=== PATIENT | female | born 1945 | race Caucasian/White ===

== ENCOUNTER 2020-07-24 10:17 | Outpatient (REF) | payer OTHER, SELFPAY ==
[2020-07-24 11:43] LABS: Estimated Average Glucose 140 mg/dL; Hemoglobin A1c % 6.5 %
[2020-07-24 12:10] LABS: Alanine Aminotransferase 46 U/L (0-31); Albumin Level 4.3 g/dL (3.5-5.0); Alkaline Phosphatase 93 U/L (39-117); Anion Gap 16 (12-20); Aspartate Amino Transferase 25 U/L (5-31); Bilirubin Total 0.9 mg/dL (0.0-1.0); Blood Urea Nitrogen 22 mg/dL (9-16); Calcium 9.9 mg/dL (8.4-10.2); Carbon Dioxide 28 mmol/L (22-29); Chloride 102 mmol/L (96-108); Cholesterol 162 mg/dL; Estimated Glomerular Filt Rate > 60; Glucose Fasting 100 mg/dL (60-99); HDL Cholesterol 39 mg/dL; LDL Cholesterol Calculated 81 mg/dl; Potassium 4.3 mmol/L (3.3-5.1); Sodium 142 mmol/L (135-145); Total Protein 6.8 g/dL (6.5-8.0); Triglycerides 213 mg/dL
[2020-07-24 12:21] LABS: Thyroid Stimulating Hormone 1.26 uIU/mL (0.32-4.0)
[2020-07-24 12:26] LABS: Creatinine Urine 138.84 mg/dL; Microalbum/Creatinine Ratio Ur 15.1 ug/mg cr
== END 2020-07-24 10:18 | disposition home or self-care (01) ==
LOC: HO.HMGCLDS 10:17
PROVIDERS: PCP Internal Medicine; Visit Provider Internal Medicine
DX: I10 Essential (primary) hypertension (principal); E11.9 Type 2 diabetes mellitus without complications; E78.2 Mixed hyperlipidemia
CPT/HCPCS: 36415; 80053; 80061; 82043; 83036; 84443

== ENCOUNTER 2021-04-25 10:59 | Outpatient (REF) | payer OTHER, SELFPAY ==
[2021-04-25 14:06] LABS: MANUAL DIFF FLAG NO
[2021-04-25 14:13] LABS: Basophils Percent Auto 0.5 % (0-2); Eosinophils Absolute Auto 0.1 X10*3/uL (0.0-0.4); Eosinophils Percent Auto 2.3 % (0-4); Hematocrit 39.4 % (37.0-47.0); Hemoglobin 12.8 g/dl (12.0-16.0); Imm Gran Abs Auto 0.01 X10*3/uL (0.00-0.03); Imm Gran Pct Auto 0.2 % (0.0-0.4); Lymphocytes Absolute Auto 1.5 X10*3/uL (1.2-4.9); Lymphocytes Percent Auto 25.5 % (20-40); Mean Corpuscular HGB Conc 32.5 g/dl (31.0-35.0); Mean Corpuscular Hemoglobin 29.9 pg (27.0-33.0); Mean Corpuscular Volume 92.1 fL (80.0-98.0); Mean Platelet Volume 11.7 fL (9.4-12.3); Monocytes Absolute Auto 0.3 X10*3/uL (0.1-1.2); Monocytes Percent Auto 5.7 % (2-11); Neutrophils Absolute Auto 3.9 x10*3/uL (2.0-8.3); Neutrophils Percent Auto 65.8 % (45-73); Platelet Count 209 X10*3/uL (160-400); Red Blood Count 4.28 X10*6/uL (4.20-5.50); Red Cell Distribution Width 12.7 % (11.0-16.0)
[2021-04-25 14:21] LABS: Estimated Average Glucose 123 mg/dL; Hemoglobin A1c % 5.9 %
[2021-04-25 14:40] LABS: Creatinine Urine 247.57 mg/dL; Microalbum/Creatinine Ratio Ur 5.2 ug/mg cr
[2021-04-25 14:58] LABS: Alanine Aminotransferase 30 U/L (0-31); Albumin Level 4.2 g/dL (3.5-5.0); Alkaline Phosphatase 82 U/L (39-117); Anion Gap 16 (12-20); Aspartate Amino Transferase 17 U/L (5-31); Bilirubin Total 0.6 mg/dL (0.0-1.0); Blood Urea Nitrogen 31 mg/dL (9-16); Calcium 10.3 mg/dL (8.4-10.2); Carbon Dioxide 28 mmol/L (22-29); Chloride 102 mmol/L (96-108); Cholesterol 185 mg/dL; Estimated Glomerular Filt Rate 38; Glucose Fasting 150 mg/dL (60-99); HDL Cholesterol 38 mg/dL; LDL Cholesterol Calculated 101 mg/dl; Potassium 4.5 mmol/L (3.3-5.1); Sodium 141 mmol/L (135-145); Total Protein 6.5 g/dL (6.5-8.0); Triglycerides 232 mg/dL
== END 2021-04-25 11:00 | disposition home or self-care (01) ==
LOC: HO.HMGCLDS 10:59
PROVIDERS: PCP Internal Medicine; Visit Provider Internal Medicine
DX: E11.9 Type 2 diabetes mellitus without complications (principal); E78.5 Hyperlipidemia, unspecified; I10 Essential (primary) hypertension
CPT/HCPCS: 36415; 80053; 80061; 82043; 83036; 85025

== ENCOUNTER 2021-05-25 09:38 | Outpatient (REF) | payer OTHER, SELFPAY ==
[2021-05-25 12:46] LABS: Anion Gap 15 (12-20); Blood Urea Nitrogen 22 mg/dL (9-16); Calcium 10.2 mg/dL (8.4-10.2); Carbon Dioxide 29 mmol/L (22-29); Chloride 101 mmol/L (96-108); Estimated Glomerular Filt Rate 59; Glucose Random 125 mg/dL (60-115); Potassium 4.6 mmol/L (3.3-5.1); Sodium 140 mmol/L (135-145)
== END 2021-05-25 09:39 | disposition home or self-care (01) ==
LOC: HO.HMGCLDS 09:38
PROVIDERS: PCP Internal Medicine; Visit Provider Internal Medicine
DX: I10 Essential (primary) hypertension (principal); E11.9 Type 2 diabetes mellitus without complications; E78.5 Hyperlipidemia, unspecified
CPT/HCPCS: 36415; 80048

== ENCOUNTER 2021-11-23 10:40 | Outpatient (REF) | payer OTHER, SELFPAY ==
[2021-11-23 14:08] LABS: Estimated Average Glucose 128 mg/dL; Hemoglobin A1c % 6.1 %
[2021-11-23 14:11] LABS: Alanine Aminotransferase 20 U/L (0-31); Albumin Level 4.2 g/dL (3.5-5.0); Alkaline Phosphatase 92 U/L (39-117); Anion Gap 13 (12-20); Aspartate Amino Transferase 14 U/L (5-31); Bilirubin Total 0.7 mg/dL (0.0-1.0); Blood Urea Nitrogen 20 mg/dL (9-16); Calcium 9.6 mg/dL (8.4-10.2); Carbon Dioxide 28 mmol/L (22-29); Chloride 103 mmol/L (96-108); Cholesterol 178 mg/dL; Estimated Glomerular Filt Rate 58; Glucose Fasting 127 mg/dL (60-99); HDL Cholesterol 43 mg/dL; LDL Cholesterol Calculated 96 mg/dl; Potassium 4.3 mmol/L (3.3-5.1); Sodium 140 mmol/L (135-145); Total Protein 6.7 g/dL (6.5-8.0); Triglycerides 198 mg/dL
== END 2021-11-23 10:41 | disposition home or self-care (01) ==
LOC: HO.HMGCLDS 10:40
PROVIDERS: Visit Provider Internal Medicine
DX: E11.9 Type 2 diabetes mellitus without complications (principal); E78.5 Hyperlipidemia, unspecified; I10 Essential (primary) hypertension
CPT/HCPCS: 36415; 80053; 80061; 82043; 83036

== ENCOUNTER 2022-06-24 11:21 | Outpatient (REF) | payer OTHER, SELFPAY ==
[2022-06-24 14:46] LABS: Alanine Aminotransferase 32 U/L (0-31); Albumin Level 4.2 g/dL (3.5-5.0); Alkaline Phosphatase 84 U/L (39-117); Anion Gap 16 (12-20); Aspartate Amino Transferase 24 U/L (5-31); Bilirubin Total 0.5 mg/dL (0.0-1.0); Blood Urea Nitrogen 17 mg/dL (9-16); Calcium 10.2 mg/dL (8.4-10.2); Carbon Dioxide 28 mmol/L (22-29); Chloride 101 mmol/L (96-108); Cholesterol 203 mg/dL; Estimated Average Glucose 143 mg/dL; Estimated Glomerular Filt Rate 57; Glucose Fasting 132 mg/dL (60-99); HDL Cholesterol 43 mg/dL; Hemoglobin A1c % 6.6 %; LDL Cholesterol Calculated 96 mg/dl; Potassium 4.7 mmol/L (3.3-5.1); Sodium 140 mmol/L (135-145); Total Protein 6.5 g/dL (6.5-8.0); Triglycerides 323 mg/dL
[2022-06-24 14:52] LABS: TSH reflex Free T4 1.09 uIU/mL (0.32-4.0)
[2022-06-24 15:04] LABS: Creatinine Urine 50.14 mg/dL; Microalbum/Creatinine Ratio Ur 15.9 ug/mg cr
== END 2022-06-24 11:22 | disposition home or self-care (01) ==
LOC: HO.HMGCLDS 11:21
PROVIDERS: Visit Provider Internal Medicine
DX: E11.9 Type 2 diabetes mellitus without complications (principal); E78.5 Hyperlipidemia, unspecified; I10 Essential (primary) hypertension
CPT/HCPCS: 36415; 80053; 80061; 82043; 83036; 84443

== ENCOUNTER 2023-02-18 09:02 | Outpatient (REF) | payer OTHER, SELFPAY ==
[2023-02-18 11:31] LABS: MANUAL DIFF FLAG NO
[2023-02-18 11:39] LABS: Basophils Percent Auto 0.5 % (0-2); Eosinophils Absolute Auto 0.1 X10*3/uL (0.0-0.4); Eosinophils Percent Auto 1.5 % (0-4); Hematocrit 37.8 % (37.0-47.0); Hemoglobin 12.4 g/dl (12.0-16.0); Imm Gran Abs Auto 0.03 X10*3/uL (0.00-0.03); Imm Gran Pct Auto 0.5 % (0.0-0.4); Lymphocytes Absolute Auto 1.5 X10*3/uL (1.2-4.9); Lymphocytes Percent Auto 25.5 % (20-40); Mean Corpuscular HGB Conc 32.8 g/dl (31.0-35.0); Mean Corpuscular Hemoglobin 30.5 pg (27.0-33.0); Mean Corpuscular Volume 92.9 fL (80.0-98.0); Mean Platelet Volume 10.4 fL (9.4-12.3); Monocytes Absolute Auto 0.3 X10*3/uL (0.1-1.2); Monocytes Percent Auto 5.6 % (2-11); Neutrophils Percent Auto 66.4 % (45-73); Platelet Count 243 X10*3/uL (160-400); Red Blood Count 4.07 X10*6/uL (4.20-5.50); Red Cell Distribution Width 13.5 % (11.0-16.0)
[2023-02-18 12:03] LABS: Estimated Average Glucose 134 mg/dL; Hemoglobin A1c % 6.3 % (<6.0)
[2023-02-18 13:08] LABS: Alanine Aminotransferase 28 U/L (0-31); Albumin Level 4.1 g/dL (3.5-5.0); Alkaline Phosphatase 82 U/L (39-117); Anion Gap 17 (12-20); Aspartate Amino Transferase 21 U/L (5-31); Bilirubin Total 0.5 mg/dL (0.0-1.0); Blood Urea Nitrogen 15 mg/dL (9-16); Calcium 10.4 mg/dL (8.4-10.2); Carbon Dioxide 24 mmol/L (22-29); Chloride 103 mmol/L (96-108); Cholesterol 180 mg/dL (<200); Estimated Glomerular Filt Rate > 60; Glucose Fasting 124 mg/dL (60-99); HDL Cholesterol 46 mg/dL (>40); Iron 53 mcg/dL (30-160); LDL Cholesterol Calculated 87 mg/dL (<100); Percent Iron Saturation 18 % (15-50); Potassium 4.1 mmol/L (3.3-5.1); Sodium 140 mmol/L (135-145); Total Iron Binding Capacity 302 mcg/dL (228-428); Total Protein 6.8 g/dL (6.5-8.0); Triglycerides 235 mg/dL (<150); Unsaturated Iron Binding 249 ug/dL
[2023-02-18 13:09] LABS: Creatinine Urine 349.19 mg/dL; Microalbum/Creatinine Ratio Ur 15.4 ug/mg cr (<30)
== END 2023-02-18 09:03 | disposition home or self-care (01) ==
LOC: HO.HMGCLDS 09:02
PROVIDERS: PCP Internal Medicine; Visit Provider Internal Medicine
DX: I10 Essential (primary) hypertension (principal); E11.9 Type 2 diabetes mellitus without complications; E78.5 Hyperlipidemia, unspecified
CPT/HCPCS: 36415; 80053; 80061; 82043; 82570; 83036; 83540; 85025

== ENCOUNTER 2023-02-25 10:50 | Outpatient (AMB) | payer OTHER, SELFPAY ==
[2023-02-25 10:53] VITALS: BP 120/66; PULSE 79; O2SAT 97; BMI 42.4
--- NOTE | 2023-02-25 10:53 | MHC.PC.OV ---
Vital Signs 02/25/23 10:53 Height 5 ft 2 in Weight 232 lb BMI 42.4 BP 120/66 Blood Pressure Location Lt brachial Position Sitting Pulse 79 Pulse Source Pulse Oximeter Pulse Oximetry (%) 97 Oxygen Delivery Method Room Air Intake Visit Reasons: 6m follow up rebooked from 12/25 Intake Note: Pt is here today for 6 months follow up visit. Allergies linagliptin [Tradjenta] Adverse Reaction (Unknown, Verified 02/25/23 10:54) yeast infection metformin Adverse Reaction (Unknown, Verified 02/25/23 10:54) diarrhea Medication List - Last Reconciled 02/25/23 by Mary Anne Bundy MD atorvastatin 20 mg PO DAILY citalopram 20 mg PO DAILY dulaglutide 1.5 mg (0.5 mL) subcut QWEEK gabapentin 300 mg PO BID glipizide 15 mg (1.5 x 10 mg) PO DAILY hydrochlorothiazide 25 mg PO DAILY hyoscyamine sulfate ER 0.375 mg PO BID ketoconazole 2% 1 appl topical BID olmesartan 20 mg PO DAILY omeprazole 20 mg PO QAM triamcinolone acetonide 0.1% 1 appl topical BID Tobacco use date assessed: 02/25/23 Fall risk assessment: No Falls in past year Last assessed Fall Risk: 02/25/23 Dental Screening Dental Screen Date: 02/25/23 Did you have a dental visit in the last 12 months?: Yes Did you have a dental problem in the last 6 months where you did not have access to dental care?: No Was dental information given to patient?: Patient has dentist HPI 6m follow up rebooked from 12/25 HPI Details PATIENT PRESENTS FOR THE FOLLOW-UP OF TYPE 2 DIABETES HYPERTENSION HYPERLIPIDEMIA STABLE ON MEDS. [facility] Medical History Macular hole of right eye IBS (irritable bowel syndrome) COPD (chronic obstructive pulmonary disease) Spinal stenosis Degenerative joint disease (DJD) of lumbar spine Overweight Type 2 diabetes mellitus Hyperlipidemia HTN (hypertension) Surgical History H/O colonoscopy Hx of cholecystectomy Family History Mother No problems noted. Father Diabetes Heart problem Substance use disorder Sister No problems noted. Social History Housing: House Alcohol intake: never Patient Tobacco Use Status: Former Tobacco user (5years ago) e-Cigarette/Vaping Use: Never Used Current occupational status: retired Cognitive needs: No Hearing needs: No Vision needs: No Questionnaire PHQ-9 Over the last 2 weeks, how often have you been bothered by any of the following problems? 1. Little interest or pleasure in doing things: not at all 2. Feeling down, depressed, or hopeless: not at all 3. Trouble falling or staying asleep, or sleeping too much: several days 4. Feeling tired or having little energy: not at all 5. Poor appetite or overeating: not at all 6. Feeling bad about yourself - or that you are a failure or have let yourself or your family down: not at all 7. Trouble concentrating on things, such as reading the newspaper or watching television: not at all 8. Moving or speaking so slowly that other people could have noticed. Or the opposite - being so fidgety or restless that you have been moving around a lot more than usual: not at all 9. Thoughts that you would be better off or of hurting yourself in some way: not at all Total score: 1 Depression Screening Interpretation: Negative Depression Screening Done: Yes Source: Developed by Drs. Jean Delaney, Ammy Yoo, Michael Faustin and colleagues, with an educational xochilt from [employer]. Thrive Questionnaire Date Thrive assessed: 02/25/23 I am a: Patient What is your living situation today?: I have a steady place to live Within the past 12 months, did the food you bought not last and you didn't have the money to get more?: Never true Within the past 12 months, did you worry whether your food would run out before you got money to buy more?: Never true Do you have trouble paying for medicines?: No Do you have trouble getting transportation to medical appointments?: No Do you have trouble paying your heating and electricity bill?: No Do you have trouble taking care of your child, family member or friend?: No Do you have trouble with day-to-day activities such as bathing, preparing meals, shopping, managing finances, etc.?: No Are you currently unemployed and looking for a job?: No Are you interested in more education?: No AUDIT C Alcohol Use Questionnaire (AUDIT-C) 1. How often do you have a drink containing alcohol?: Never 3. How often do you have six or more drinks on one occasion?: Never Total Score: 0 LISS-7 AMB Questionnaire LISS-7 Date LISS - 7 assessed: 06/27/22 Source: Developed by Drs. Jean Delaney, Ammy Yoo, Michael Faustin and colleagues, with an educational xochilt from [employer]. Review of Systems Const All systems reviewed & are unremarkable except as noted in HPI and below Reports no additional complaints Eyes Reports no additional complaints ENT Reports no additional complaints Card Reports no additional complaints Resp Reports no additional complaints GI Reports no additional complaints Reports no additional complaints Physical exam (Primary Care) Vital Signs: Last Vital Signs Pulse 79 02/25/23 10:53 BP 120/66 02/25/23 10:53 Pulse Ox 97 02/25/23 10:53 Oxygen Delivery Method Room Air 02/25/23 10:53 BMI result Body Mass Index 42.4 Tobacco/Smoking Status: Tobacco use Status Tobacco use date assessed 02/25/23 02/25/23 11:03 Patient Tobacco Use Status Former Tobacco user (5years 02/25/23 11:03 ago) e-Cigarette/Vaping Use Never Used 02/25/23 11:03 PHQ-9: PHQ-9 Score PHQ-9: Total score 1 02/25/23 11:03 Depression Screening Interpretation: Negative Thrive Assessment: Date of Thrive Assessment Date Thrive assessed 02/25/23 02/25/23 11:03 Const General: no acute distress HENMT Face and sinus: Yes normal facial exam Mouth: Normal oral and palatal mucosa present Throat: Yes posterior oropharynx normal Eyes General: appearance normal, both eyes and all related structures Neck Neck: Yes no lymphadenopathy and Yes supple Resp Effort & Inspection: normal respiratory effort Auscultation: clear to auscultation bilaterally Cardio Rhythm: regular rhythm Heart sounds: S1 normal heart sound present and S2 normal heart sound present GI Inspection: Yes normal to inspection Palpation (GI): Soft to palpation Percussion: Yes normal to percussion Auscultation: normal bowel sounds Assessment and Plan Assessment & Plan (1) Type 2 diabetes mellitus: Code(s): E11.9 - Type 2 diabetes mellitus without complications Plan: A1C is 6.3, cont ADA diet, exercise, weight loss, f/u for PE IN 6 MONTHS (2) HTN (hypertension): Code(s): I10 - Essential (primary) hypertension Plan: cont meds (3) Hyperlipidemia: Code(s): E78.5 - Hyperlipidemia, unspecified Plan: cont statin Orders: Orders Complete Blood Count Auto Diff 6 Months E11.9 - Type 2 diabetes mellitus without complications, E78.5 - Hyperlipidemia, unspecified, I10 - Essential (primary) hypertension Hemoglobin A1c 6 Months E11.9 - Type 2 diabetes mellitus without complications, E78.5 - Hyperlipidemia, unspecified, I10 - Essential (primary) hypertension Lipid Panel 6 Months E11.9 - Type 2 diabetes mellitus without complications, E78.5 - Hyperlipidemia, unspecified, I10 - Essential (primary) hypertension Microalbumin, Random (w Creat) 6 Months E11.9 - Type 2 diabetes mellitus without complications, E78.5 - Hyperlipidemia, unspecified, I10 - Essential (primary) hypertension Comprehensive [place]. Panel Fast 6 Months E11.9 - Type 2 diabetes mellitus without complications, E78.5 - Hyperlipidemia, unspecified, I10 - Essential (primary) hypertension Coding Level of Care Code Est Pt Level 4 (80379) Diagnoses Type 2 diabetes mellitus E11.9 HTN (hypertension) I10 Hyperlipidemia E78.5
== END 2023-02-25 11:31 | disposition home or self-care (01) ==
PROVIDERS: PCP Internal Medicine; Visit Provider Internal Medicine
DX: E11.9 Type 2 diabetes mellitus without complications (principal); I10 Essential (primary) hypertension; E78.5 Hyperlipidemia, unspecified
CPT/HCPCS: 99214

== ENCOUNTER 2023-10-28 10:23 | Outpatient (REF) | payer OTHER, SELFPAY ==
[2023-10-28 13:17] LABS: MANUAL DIFF FLAG NO
[2023-10-28 13:39] LABS: Basophils Percent Auto 0.5 % (0-2); Eosinophils Absolute Auto 0.2 X10*3/uL (0.0-0.4); Eosinophils Percent Auto 2.7 % (0-4); Hematocrit 38.1 % (37.0-47.0); Hemoglobin 12.5 g/dl (12.0-16.0); Imm Gran Abs Auto 0.02 X10*3/uL (0.00-0.03); Imm Gran Pct Auto 0.3 % (0.0-0.4); Lymphocytes Absolute Auto 1.4 X10*3/uL (1.2-4.9); Lymphocytes Percent Auto 24.7 % (20-40); Mean Corpuscular HGB Conc 32.8 g/dl (31.0-35.0); Mean Corpuscular Volume 91.4 fL (80.0-98.0); Mean Platelet Volume 11.2 fL (9.4-12.3); Monocytes Absolute Auto 0.4 X10*3/uL (0.1-1.2); Monocytes Percent Auto 6.7 % (2-11); Neutrophils Absolute Auto 3.8 x10*3/uL (2.0-8.3); Neutrophils Percent Auto 65.1 % (45-73); Platelet Count 200 X10*3/uL (160-400); Red Blood Count 4.17 X10*6/uL (4.20-5.50); Red Cell Distribution Width 13.7 % (11.0-16.0); White Blood Count 5.8 X10*3/uL (4.8-10.8)
[2023-10-28 14:00] LABS: Alanine Aminotransferase 37 U/L (0-31); Alkaline Phosphatase 81 U/L (39-117); Anion Gap 16 (12-20); Aspartate Amino Transferase 28 U/L (5-31); Bilirubin Total 0.6 mg/dL (0.0-1.0); Blood Urea Nitrogen 20 mg/dL (9-16); Calcium 10.1 mg/dL (8.4-10.2); Carbon Dioxide 25 mmol/L (22-29); Chloride 102 mmol/L (96-108); Cholesterol 160 mg/dL (<200); Estimated Glomerular Filt Rate > 60; Glucose Fasting 132 mg/dL (60-99); HDL Cholesterol 37 mg/dL (>40); LDL Cholesterol Calculated 75 mg/dL (<100); Potassium 4.4 mmol/L (3.3-5.1); Sodium 139 mmol/L (135-145); Total Protein 6.7 g/dL (6.5-8.0); Triglycerides 242 mg/dL (<150)
[2023-10-28 14:03] LABS: Estimated Average Glucose 148 mg/dL; Hemoglobin A1c % 6.8 % (<6.0)
[2023-10-28 14:07] LABS: Creatinine Urine 102.34 mg/dL; Microalbum/Creatinine Ratio Ur 9.7 ug/mg cr (<30)
== END 2023-10-28 10:24 | disposition home or self-care (01) ==
LOC: HO.HMGCLDS 10:23
PROVIDERS: PCP Internal Medicine; Visit Provider Internal Medicine
DX: E11.9 Type 2 diabetes mellitus without complications (principal); E78.5 Hyperlipidemia, unspecified; I10 Essential (primary) hypertension
CPT/HCPCS: 36415; 80053; 80061; 82043; 82570; 83036; 85025

== ENCOUNTER 2023-10-30 10:20 | Outpatient (AMB) | payer OTHER, SELFPAY ==
[2023-10-30 10:34] VITALS: BP 108/64; PULSE 72; O2SAT 96; BMI 41.1
--- NOTE | 2023-10-30 10:34 | A.OFFPC_ITS ---
Vital Signs 10/30/23 10:34 Height 5 ft 2 in Weight 225 lb BMI 41.1 BP 108/64 Blood Pressure Location Rt brachial Position Sitting Pulse 72 Pulse Source Pulse Oximeter Pulse Oximetry (%) 96 Oxygen Delivery Method Room Air Intake Visit Reasons: Annual PE Intake Note: Pt is here today for PE. Allergies linagliptin [Tradjenta] Adverse Reaction (Unknown, Verified 10/30/23 10:37) yeast infection metformin Adverse Reaction (Unknown, Verified 10/30/23 10:37) diarrhea Medication List - Last Reconciled 10/30/23 by Mary Anne Bundy MD atorvastatin 20 mg PO DAILY citalopram 10 mg PO DAILY dulaglutide 1.5 mg (0.5 mL) subcut QWEEK gabapentin 300 mg PO BID glipizide 15 mg (1.5 x 10 mg) PO DAILY hydrochlorothiazide 25 mg PO DAILY hyoscyamine sulfate ER 0.375 mg PO BID ketoconazole 2% 1 appl topical BID PRN multivitamin 1 tab PO DAILY [nutrafol 1 cap 5 times a day for hair ] olmesartan 20 mg PO DAILY omeprazole 20 mg PO QAM triamcinolone acetonide 0.1% 1 appl topical BID PRN Tobacco use date assessed: 10/30/23 Last assessed Fall Risk: 10/30/23 Dental Screening Dental Screen Date: 10/30/23 Did you have a dental visit in the last 12 months?: Yes Did you have a dental problem in the last 6 months where you did not have access to dental care?: No Was dental information given to patient?: Patient has dentist HPI Annual PE HPI Details Pt presents for PE. Patient would like to taper off citalopram. She has been feeling well overall and lost 7 lb since last visit on 1.5 mg of Trulicity [facility] Medical History Macular hole of right eye IBS (irritable bowel syndrome) COPD (chronic obstructive pulmonary disease) Spinal stenosis Degenerative joint disease (DJD) of lumbar spine Overweight Type 2 diabetes mellitus Hyperlipidemia HTN (hypertension) Surgical History H/O colonoscopy Hx of cholecystectomy Family History Mother No problems noted. Father Diabetes Heart problem Substance use disorder Sister No problems noted. Social History Housing: House Alcohol intake: never Patient Tobacco Use Status: Former Tobacco user (5years ago) e-Cigarette/Vaping Use: Never Used Current occupational status: retired Cognitive needs: No Hearing needs: No Vision needs: No Questionnaire PHQ-9 Over the last 2 weeks, how often have you been bothered by any of the following problems? 1. Little interest or pleasure in doing things: not at all 2. Feeling down, depressed, or hopeless: not at all 3. Trouble falling or staying asleep, or sleeping too much: several days 4. Feeling tired or having little energy: not at all 5. Poor appetite or overeating: several days 6. Feeling bad about yourself - or that you are a failure or have let yourself or your family down: not at all 7. Trouble concentrating on things, such as reading the newspaper or watching television: not at all 8. Moving or speaking so slowly that other people could have noticed. Or the opposite - being so fidgety or restless that you have been moving around a lot more than usual: not at all 9. Thoughts that you would be better off or of hurting yourself in some way: not at all Total score: 2 Depression Screening Interpretation: Negative Depression Screening Done: Yes Source: Developed by Drs. Jean Delaney, Ammy Yoo, Michael Faustin and colleagues, with an educational xochilt from [email or web address]. Thrive Questionnaire Date Thrive assessed: 10/30/23 I am a: Patient What is your living situation today?: I have a steady place to live Within the past 12 months, did the food you bought not last and you didn't have the money to get more?: Never true Within the past 12 months, did you worry whether your food would run out before you got money to buy more?: Never true Do you have trouble paying for medicines?: No Do you have trouble getting transportation to medical appointments?: No Do you have trouble paying your heating and electricity bill?: No Do you have trouble taking care of your child, family member or friend?: No Do you have trouble with day-to-day activities such as bathing, preparing meals, shopping, managing finances, etc.?: No Are you currently unemployed and looking for a job?: No Are you interested in more education?: No Please select the resources that you would like help with: None THRIVE Score: 0 AUDIT C Alcohol Use Questionnaire (AUDIT-C) 1. How often do you have a drink containing alcohol?: Never 3. How often do you have six or more drinks on one occasion?: Never Total Score: 0 LISS-7 AMB Questionnaire LISS-7 Date LISS - 7 assessed: 10/30/23 Feeling nervous, anxious, or on edge: 0 = Not at all Not being able to stop or control worryin = Not at all Worrying too much about different things: 0 = Not at all Trouble relaxin = Not at all Being so restless that it is hard to sit still: 0 = Not at all Becoming easily annoyed or irritable: 0 = Not at all Feeling afraid as if something awful might happen: 0 = Not at all Total LISS-7 score (0-4 normal; 5-9 mild; 10-14 moderate; 15-21 severe): 0 Source: Developed by Drs. Jean Delaney, Ammy Yoo, Michael Faustin and colleagues, with an educational xochilt from [email or web address]. Review of Systems Const All systems reviewed & are unremarkable except as noted in HPI and below Reports no additional complaints Eyes Reports no additional complaints ENT Reports no additional complaints Card Reports no additional complaints Resp Reports no additional complaints GI Reports no additional complaints Reports no additional complaints Physical exam (Primary Care) Vital Signs: Last Vital Signs Pulse 72 10/30/23 10:34 BP 108/64 10/30/23 10:34 Pulse Ox 96 10/30/23 10:34 Oxygen Delivery Method Room Air 10/30/23 10:34 BMI result Body Mass Index 41.1 Tobacco/Smoking Status: Tobacco use Status Tobacco use date assessed 10/30/23 10/30/23 10:46 Patient Tobacco Use Status Former Tobacco user (5years 10/30/23 10:46 ago) e-Cigarette/Vaping Use Never Used 10/30/23 10:46 PHQ-9: PHQ-9 Score PHQ-9: Total score 2 10/30/23 10:46 Depression Screening Interpretation: Negative Thrive Assessment: Date of Thrive Assessment Date Thrive assessed 10/30/23 10/30/23 10:46 Const General: no acute distress HENMT Head: Yes normal to inspection General nose exam: Normal external nose present Face and sinus: Yes normal facial exam Mouth: Normal oral and palatal mucosa present Throat: Yes posterior oropharynx normal Eyes General: appearance normal, both eyes and all related structures Neck Neck: Yes supple Resp Effort & Inspection: normal respiratory effort Auscultation: clear to auscultation bilaterally Cardio Rhythm: regular rhythm Heart sounds: S1 normal heart sound present and S2 normal heart sound present GI Inspection: Yes normal to inspection Palpation (GI): Soft to palpation Percussion: Yes normal to percussion Auscultation: normal bowel sounds Assessment and Plan Assessment & Plan (1) HTN (hypertension): Code(s): I10 - Essential (primary) hypertension Plan: Continue olmesartan (2) Hyperlipidemia: Code(s): E78.5 - Hyperlipidemia, unspecified Plan: Continue statin (3) Type 2 diabetes mellitus: Code(s): E11.9 - Type 2 diabetes mellitus without complications Plan: A1c is 6.8, ADA diet increase exercise weight loss discussed with the patient. Increase Trulicity to 3 mg weekly and decrease glipizide to 5 mg from 10 mg. Follow-up in 3 months with a fasting labs before (4) Edema: Code(s): R60.9 - Edema, unspecified Plan: For worsening lower extremity edema hydrochlorothiazide will be discontinued and patient will start Lasix 20 mg daily. BMP will be checked in 3 weeks (5) Anxiety: Code(s): F41.9 - Anxiety disorder, unspecified Plan: Patient will slowly taper off citalopram (6) Annual physical exam: Code(s): Z00.00 - Encounter for general adult medical examination without abnormal findings Plan: Well-balanced diet regular exercise weight loss discussed with the patient Orders: Orders Basic Metabolic Panel 3 Weeks E11.9 - Type 2 diabetes mellitus without complications, E78.5 - Hyperlipidemia, unspecified, I10 - Essential (primary) hypertension, R60.9 - Edema, unspecified Comprehensive [place]. Panel Fast 3 Months E11.9 - Type 2 diabetes mellitus without complications, E78.5 - Hyperlipidemia, unspecified, I10 - Essential (primary) hypertension Complete Blood Count Auto Diff 3 Months E11.9 - Type 2 diabetes mellitus without complications, E78.5 - Hyperlipidemia, unspecified, I10 - Essential (primary) hypertension Lipid Panel 3 Months E11.9 - Type 2 diabetes mellitus without complications, E78.5 - Hyperlipidemia, unspecified, I10 - Essential (primary) hypertension Hemoglobin A1c 3 Months E11.9 - Type 2 diabetes mellitus without complications, E78.5 - Hyperlipidemia, unspecified, I10 - Essential (primary) hypertension Microalbumin, Random (w Creat) 3 Months E11.9 - Type 2 diabetes mellitus without complications, E78.5 - Hyperlipidemia, unspecified, I10 - Essential (primary) hypertension Medications: New Trulicity (dulaglutide) 3 mg (0.5 mL) subcut QWEEK 6 mL 1RF NS citalopram 1 tabl qd for 2 weeks, then 1/2 tabl qd fo 2weeks, then 1/2 tabl qod for 2 weeks, then 1/2 tabl q 2 days for 2 weeks 10 mg PO DAILY 90 tabs 0RF glipizide ER 5 mg PO DAILY 90 tabs 0RF furosemide (Lasix) 20 mg PO DAILY 90 tabs 0RF Changed From triamcinolone acetonide 0.1% 1 appl topical BID 80 grams 3RF To triamcinolone acetonide 0.1% 1 appl topical BID PRN Discontinued citalopram Discontinued Reason: Doctor's Order 20 mg PO DAILY 90 tabs 2RF glipizide Discontinued Reason: Doctor's Order 15 mg (1.5 x 10 mg) PO DAILY 135 tabs 3RF hydrochlorothiazide Discontinued Reason: Doctor's Order 25 mg PO DAILY 90 tabs 3RF dulaglutide Discontinued Reason: Doctor's Order 1.5 mg (0.5 mL) subcut QWEEK 6 mL 3RF Coding Level of Care Code Est Pt Prev Care >65y(82633) Diagnoses HTN (hypertension) I10 Hyperlipidemia E78.5 Type 2 diabetes mellitus E11.9 Edema R60.9 Anxiety F41.9 Annual physical exam Z00.00
== END 2023-10-30 11:28 | disposition home or self-care (01) ==
PROVIDERS: PCP Internal Medicine; Visit Provider Internal Medicine
DX: I10 Essential (primary) hypertension (principal); E78.5 Hyperlipidemia, unspecified; E11.9 Type 2 diabetes mellitus without complications; R60.9 Edema, unspecified; F41.9 Anxiety disorder, unspecified; Z00.00 Encounter for general adult medical examination without abnormal findings
CPT/HCPCS: 99397

== ENCOUNTER 2023-11-20 08:30 | Outpatient (REF) | payer OTHER, SELFPAY ==
[2023-11-20 12:11] LABS: Anion Gap 15 (12-20); Blood Urea Nitrogen 27 mg/dL (9-16); Calcium 10.5 mg/dL (8.4-10.2); Carbon Dioxide 27 mmol/L (22-29); Chloride 103 mmol/L (96-108); Estimated Glomerular Filt Rate 43; Glucose Random 168 mg/dL (60-115); Potassium 4.6 mmol/L (3.3-5.1); Sodium 140 mmol/L (135-145)
== END 2023-11-20 08:31 | disposition home or self-care (01) ==
LOC: HO.HMGCLDS 08:30
PROVIDERS: PCP Internal Medicine; Visit Provider Internal Medicine
DX: R60.9 Edema, unspecified (principal); E11.9 Type 2 diabetes mellitus without complications; I10 Essential (primary) hypertension; E78.5 Hyperlipidemia, unspecified
CPT/HCPCS: 36415; 80048

== ENCOUNTER 2024-02-02 11:06 | Outpatient (REF) | payer OTHER, SELFPAY ==
[2024-02-02 13:19] LABS: MANUAL DIFF FLAG NO
[2024-02-02 13:28] LABS: Basophils Percent Auto 0.9 % (0-2); Eosinophils Absolute Auto 0.1 X10*3/uL (0.0-0.4); Eosinophils Percent Auto 3.1 % (0-4); Hematocrit 38.2 % (37.0-47.0); Hemoglobin 12.7 g/dl (12.0-16.0); Imm Gran Abs Auto 0.01 X10*3/uL (0.00-0.03); Imm Gran Pct Auto 0.2 % (0.0-0.4); Lymphocytes Absolute Auto 1.6 X10*3/uL (1.2-4.9); Lymphocytes Percent Auto 35.5 % (20-40); Mean Corpuscular HGB Conc 33.2 g/dl (31.0-35.0); Mean Corpuscular Hemoglobin 30.5 pg (27.0-33.0); Mean Corpuscular Volume 91.6 fL (80.0-98.0); Mean Platelet Volume 10.9 fL (9.4-12.3); Monocytes Absolute Auto 0.3 X10*3/uL (0.1-1.2); Monocytes Percent Auto 7.4 % (2-11); Neutrophils Absolute Auto 2.4 x10*3/uL (2.0-8.3); Neutrophils Percent Auto 52.9 % (45-73); Platelet Count 195 X10*3/uL (160-400); Red Blood Count 4.17 X10*6/uL (4.20-5.50); White Blood Count 4.6 X10*3/uL (4.8-10.8)
[2024-02-02 13:48] LABS: Alanine Aminotransferase 31 U/L (0-31); Alkaline Phosphatase 79 U/L (39-117); Anion Gap 15 (12-20); Aspartate Amino Transferase 21 U/L (5-31); Bilirubin Total 0.4 mg/dL (0.0-1.0); Blood Urea Nitrogen 22 mg/dL (9-16); Calcium 10.3 mg/dL (8.4-10.2); Carbon Dioxide 26 mmol/L (22-29); Chloride 106 mmol/L (96-108); Cholesterol 179 mg/dL (<200); Estimated Glomerular Filt Rate > 60; Glucose Fasting 125 mg/dL (60-99); HDL Cholesterol 40 mg/dL (>40); LDL Cholesterol Calculated 90 mg/dL (<100); Potassium 4.8 mmol/L (3.3-5.1); Sodium 142 mmol/L (135-145); Total Protein 6.7 g/dL (6.5-8.0); Triglycerides 246 mg/dL (<150)
[2024-02-02 14:14] LABS: Creatinine Urine 39.61 mg/dL; Microalbumin Urine < 5.0 mg/L
[2024-02-02 14:33] LABS: Estimated Average Glucose 134 mg/dL; Hemoglobin A1c % 6.3 % (<6.0)
== END 2024-02-02 11:07 | disposition home or self-care (01) ==
LOC: HO.HMGCLDS 11:06
PROVIDERS: PCP Internal Medicine; Visit Provider Internal Medicine
DX: I10 Essential (primary) hypertension (principal); E11.9 Type 2 diabetes mellitus without complications; E78.5 Hyperlipidemia, unspecified
CPT/HCPCS: 36415; 80053; 80061; 82043; 82570; 83036; 85025

== ENCOUNTER 2024-02-05 10:54 | Outpatient (AMB) | payer OTHER, SELFPAY ==
[2024-02-05 10:55] VITALS: BP 116/64; PULSE 74; O2SAT 97; BMI 40.4
--- NOTE | 2024-02-05 10:55 | A.OFFPC_ITS ---
Vital Signs 02/05/24 10:55 Height 5 ft 2 in Weight 221 lb BMI 40.4 BP 116/64 Blood Pressure Location Lt brachial Position Sitting Pulse 74 Pulse Source Pulse Oximeter Pulse Oximetry (%) 97 Oxygen Delivery Method Room Air Intake Visit Reasons: follow up on medications Intake Note: Pt is here today for a follow up visit on weight medication. Allergies linagliptin [Tradjenta] Adverse Reaction (Unknown, Verified 02/05/24 10:56) yeast infection metformin Adverse Reaction (Unknown, Verified 02/05/24 10:56) diarrhea Medication List - Last Reconciled 02/05/24 by Mary Anne Bundy MD atorvastatin 20 mg PO DAILY citalopram 10 mg PO DAILY furosemide (Lasix) 20 mg PO DAILY gabapentin 300 mg PO BID glipizide ER 5 mg PO DAILY hyoscyamine sulfate ER 0.375 mg PO BID ketoconazole 2% 1 appl topical BID PRN multivitamin 1 tab PO DAILY [nutrafol 1 cap 5 times a day for hair ] olmesartan 20 mg PO DAILY omeprazole 20 mg PO QAM Ozempic (semaglutide) 2 mg (0.75 mL) subcut QWEEK NS triamcinolone acetonide 0.1% 1 appl topical BID PRN Tobacco use date assessed: 02/05/24 Dental Screening Dental Screen Date: 10/30/23 HPI follow up on medications HPI Details Pt presents for f/u DM 2, HTN, hyperlipid, stable on meds. Patient has been using Trulicity but needs to switch to Ozempic because of the shortage at its concerned about side effects. [facility] Medical History Macular hole of right eye IBS (irritable bowel syndrome) COPD (chronic obstructive pulmonary disease) Spinal stenosis Degenerative joint disease (DJD) of lumbar spine Overweight Type 2 diabetes mellitus Hyperlipidemia HTN (hypertension) Surgical History H/O colonoscopy Hx of cholecystectomy Family History Mother No problems noted. Father Diabetes Heart problem Substance use disorder Sister No problems noted. Social History Housing: House Alcohol intake: never Patient Tobacco Use Status: Former Tobacco user (5years ago) e-Cigarette/Vaping Use: Never Used service: No Current occupational status: retired Cognitive needs: No Hearing needs: No Vision needs: No Questionnaire Thrive Questionnaire Date Thrive assessed: 10/30/23 I am a: Patient What is your living situation today?: I have a steady place to live Within the past 12 months, did the food you bought not last and you didn't have the money to get more?: Never true Within the past 12 months, did you worry whether your food would run out before you got money to buy more?: Never true Do you have trouble paying for medicines?: No Do you have trouble getting transportation to medical appointments?: No Do you have trouble paying your heating and electricity bill?: No Do you have trouble taking care of your child, family member or friend?: No Do you have trouble with day-to-day activities such as bathing, preparing meals, shopping, managing finances, etc.?: No Are you currently unemployed and looking for a job?: No Are you interested in more education?: No THRIVE Score: 0 AUDIT C Alcohol Use Questionnaire (AUDIT-C) 1. How often do you have a drink containing alcohol?: Monthly or less 2. How many drinks containing alcohol do you have on a typical day when you are drinking?: 1 or 2 3. How often do you have six or more drinks on one occasion?: Never Total Score: 1 LISS-7 AMB Questionnaire LISS-7 Date LISS - 7 assessed: 10/30/23 Feeling nervous, anxious, or on edge: 0 = Not at all Not being able to stop or control worryin = Not at all Worrying too much about different things: 0 = Not at all Trouble relaxin = Not at all Being so restless that it is hard to sit still: 0 = Not at all Becoming easily annoyed or irritable: 0 = Not at all Feeling afraid as if something awful might happen: 0 = Not at all Total LISS-7 score (0-4 normal; 5-9 mild; 10-14 moderate; 15-21 severe): 0 Source: Developed by Drs. Jean Delaney, Ammy Yoo, Michael Faustin and colleagues, with an educational xochilt from [employer]. Review of Systems Const All systems reviewed & are unremarkable except as noted in HPI and below Eyes Reports no additional complaints ENT Reports no additional complaints Card Reports no additional complaints Resp Reports no additional complaints GI Reports no additional complaints Reports no additional complaints Musc Reports no additional complaints Physical exam (Primary Care) Vital Signs: Last Vital Signs Pulse 74 02/05/24 10:55 BP 116/64 02/05/24 10:55 Pulse Ox 97 02/05/24 10:55 Oxygen Delivery Method Room Air 02/05/24 10:55 BMI result Body Mass Index 40.4 Tobacco/Smoking Status: Tobacco use Status Tobacco use date assessed 02/05/24 02/05/24 11:03 Patient Tobacco Use Status Former Tobacco user (5years 02/05/24 11:03 ago) e-Cigarette/Vaping Use Never Used 02/05/24 11:03 Thrive Assessment: Date of Thrive Assessment Date Thrive assessed 10/30/23 02/05/24 11:03 Const General: no acute distress HENMT Head: Yes normal to inspection Ears: hearing grossly normal bilaterally Face and sinus: Yes normal facial exam Throat: Yes posterior oropharynx normal Eyes General: appearance normal, both eyes and all related structures Neck Neck: Yes no lymphadenopathy and Yes supple Resp Effort & Inspection: normal respiratory effort Auscultation: clear to auscultation bilaterally Cardio Rhythm: regular rhythm Heart sounds: S1 normal heart sound present and S2 normal heart sound present GI Inspection: Yes normal to inspection Palpation (GI): Soft to palpation Percussion: Yes normal to percussion Auscultation: normal bowel sounds Assessment and Plan Assessment & Plan (1) Type 2 diabetes mellitus: Code(s): E11.9 - Type 2 diabetes mellitus without complications Plan: A1c is down to 6.3, continue ADA diet increase physical activity weight loss discussed with the patient. She will start Ozempic instead of Trulicity. Patient will follow-up in 4 months with a fasting labs before (2) HTN (hypertension): Code(s): I10 - Essential (primary) hypertension Plan: Continue current medications (3) Hyperlipidemia: Code(s): E78.5 - Hyperlipidemia, unspecified Plan: Continue statin Orders: Orders Hemoglobin A1c 4 Months E11.9 - Type 2 diabetes mellitus without complications, E78.5 - Hyperlipidemia, unspecified, I10 - Essential (primary) hypertension Complete Blood Count Auto Diff 4 Months E11.9 - Type 2 diabetes mellitus without complications, E78.5 - Hyperlipidemia, unspecified, I10 - Essential (primary) hypertension Lipid Panel 4 Months E11.9 - Type 2 diabetes mellitus without complications, E78.5 - Hyperlipidemia, unspecified, I10 - Essential (primary) hypertension Comprehensive Commerce. Panel Fast 4 Months E11.9 - Type 2 diabetes mellitus without complications, E78.5 - Hyperlipidemia, unspecified, I10 - Essential (primary) hypertension Microalbumin, Random (w Creat) 4 Months E11.9 - Type 2 diabetes mellitus without complications, E78.5 - Hyperlipidemia, unspecified, I10 - Essential (primary) hypertension Coding Level of Care Code Est Pt Level 4 (80040) Diagnoses Type 2 diabetes mellitus E11.9 HTN (hypertension) I10 Hyperlipidemia E78.5
== END 2024-02-05 12:02 | disposition home or self-care (01) ==
PROVIDERS: PCP Internal Medicine; Visit Provider Internal Medicine
DX: E11.9 Type 2 diabetes mellitus without complications (principal); I10 Essential (primary) hypertension; E78.5 Hyperlipidemia, unspecified
CPT/HCPCS: 99214

== ENCOUNTER 2024-07-20 11:24 | Outpatient (REF) | payer OTHER, SELFPAY ==
[2024-07-20 13:15] LABS: MANUAL DIFF FLAG NO
[2024-07-20 13:35] LABS: Basophils Percent Auto 0.3 % (0-2); Eosinophils Absolute Auto 0.1 X10*3/uL (0.0-0.4); Eosinophils Percent Auto 1.9 % (0-4); Hematocrit 39.7 % (37.0-47.0); Hemoglobin 12.6 g/dl (12.0-16.0); Imm Gran Abs Auto 0.01 X10*3/uL (0.00-0.03); Imm Gran Pct Auto 0.2 % (0.0-0.4); Lymphocytes Absolute Auto 1.6 X10*3/uL (1.2-4.9); Lymphocytes Percent Auto 24.7 % (20-40); Mean Corpuscular HGB Conc 31.7 g/dl (31.0-35.0); Mean Corpuscular Hemoglobin 29.5 pg (27.0-33.0); Mean Platelet Volume 10.8 fL (9.4-12.3); Monocytes Absolute Auto 0.4 X10*3/uL (0.1-1.2); Monocytes Percent Auto 5.6 % (2-11); Neutrophils Absolute Auto 4.4 x10*3/uL (2.0-8.3); Neutrophils Percent Auto 67.3 % (45-73); Platelet Count 217 X10*3/uL (160-400); Red Blood Count 4.27 X10*6/uL (4.20-5.50); Red Cell Distribution Width 13.2 % (11.0-16.0); White Blood Count 6.5 X10*3/uL (4.8-10.8)
[2024-07-20 13:45] LABS: Creatinine Urine 83.79 mg/dL; Estimated Average Glucose 114 mg/dL; Hemoglobin A1c % 5.6 % (<6.0); Microalbum/Creatinine Ratio Ur 5.9 ug/mg cr (<30)
[2024-07-20 13:51] LABS: Alanine Aminotransferase 27 U/L (0-31); Alkaline Phosphatase 96 U/L (39-117); Anion Gap 12 (12-20); Aspartate Amino Transferase 22 U/L (5-31); Bilirubin Total 0.6 mg/dL (0.0-1.0); Blood Urea Nitrogen 23 mg/dL (9-16); Calcium 10.5 mg/dL (8.4-10.2); Carbon Dioxide 30 mmol/L (22-29); Chloride 102 mmol/L (96-108); Cholesterol 165 mg/dL (<200); Estimated Glomerular Filt Rate > 60; Glucose Fasting 97 mg/dL (60-99); HDL Cholesterol 39 mg/dL (>40); LDL Cholesterol Calculated 92 mg/dL (<100); Potassium 4.6 mmol/L (3.3-5.1); Sodium 139 mmol/L (135-145); Total Protein 7.1 g/dL (6.5-8.0); Triglycerides 171 mg/dL (<150)
--- OUTSIDE RECORDS SUMMARY | 2024-07-20 14:00 | XMS_ITS | Data Portability ---
Author Organization [place] - [facility], Allergy Address [address] [place] [id number] Care Team Providers Care Processing Associate Name Role Phone PIERCE MYLES Primary Care Provider Assessment Encounter Date Assessment Date Assessment LastModified by Organization Details LastModified Time 03/05/2024 03/05/2024 78 year old female presents for ear cleaning. Ears were meticulously cleaned bilaterally today with fine pics and suction. Patient is encouraged to avoid Q-tips in her ears relative to packing the wax in tighter. Yearly visits or as needed are recommended. [email or web address] Not available 03/05/2024 14:25:45 Plan of Treatment Reminders Order Date Submit Date Provider Last Modified By Organization Details Last Modified Time Details Appointments None record ed. Lab None record ed. Referral None record ed. Procedures None record ed. Surgeries None record ed. Imaging None record ed. Medication Orders None record ed. Patient TargetsNo targets recorded. Patient InstructionsNo instructions recorded. Reason for Referral None Reported. Problems Name Problem SNOMED Code Status Onset Date Resolution Date Notes Provider Name and Address Organization Details Recorded Time Sensorine ural hearing loss of bilateral ears 970685286 Active 2015 Sensorine ural hearing loss, bilateral ; Note: Date Diagnosed : 6 3:23 PM (H90.3) Not Available [facility] 4 02:47:18 Posterior rhinorrhe a 60640433 Active 2017 Postnasal drip; Note: Date Diagnosed : 08/06/2017 3:00 PM (R09.82) Not Available [facility] 4 02:47:18 Bilateral disorder of Eustachia n tubes 73177073990 80896 Active 2022 Other specified disorders of Eustachia n tube, bilateral ; Note: Date Diagnosed : 04/29/2023 1:38 PM (H69.83) Not Available [facility] 4 02:47:11 Impacted cerumen in right ear 11554822170 75933 Active 2015 Impacted cerumen, right ear; Note: Date Diagnosed : 6 3:18 PM (H61.21) Not Available [facility] 4 02:47:17 Impacted cerumen of bilateral ears 87176323172 17290 Active 2017 Impacted cerumen, bilateral ; Note: Date Diagnosed : 08/06/2017 3:00 PM (H61.23) Not Available [facility] 4 02:47:17 Impacted cerumen 55473023 Active 2014 Impacted cerumen; CMS Risk: low risk CMS Treatment : new problem (to examiner) : no additiona l workup planned Not Available [facility] 4 02:47:13 Impacted cerumen in left ear 25029468743 24697 Active 2016 Impacted cerumen, left ear; Note: Date Diagnosed : 01/29/2017 1:53 PM (H61.22) Not Available [facility] 4 02:47:18 Problem Notes None recorded. Procedures Surgical History Date Name Laterality Status Provider Name and Address Organization Details Recorded Time 4 Cerumen removal without microscope bilat completed DAVID SIFUENTES PA-C [address] [place] [address], [phone] - [facility] 03/05/2024 14:25:57 Imaging Results None recorded. Procedure Notes None recorded. Medical Equipment None Reported. Allergies No known drug allergies Medications Name Sig Start Date Stop Date Status Note LastModified by Organization Details LastModified Time atorvasta tin 20 mg tablet 20 mg every day by oral route. active Not Available Not Available No t Available citalopra m 40 mg tablet 02/12 completed Medicati on ID: [id number] Du ration Value: 90 Brand Name: citalopr am Send Method: E-Prescr ibed Sub s Allowed: subs OK Medic ationGen ericName : citalopr am Not Available Not Available Not Available citalopra m 10 mg tablet active Not Available Not Available Not Available glipizide 10 mg tablet TAKE 1 & 1/2 (ONE & ONE-HALF ) TABLETS BY MOUTH ONCE DAILY 03/05 completed Not Available Not Available Not Available glipizide ER 5 mg tablet, extended release 24 hr active Not Available Not Available Not Available triamcino lone acetonide 0.1 % topical cream APPLY CREAM EXTERNAL LY TWICE DAILY TO THE AFFECTED AREA active Not Available Not Available No t Available oxycodone -acetamin ophen 5 mg-325 mg tablet 03/01 completed Medicati on ID: [id number] Du ration Value: 15 Brand Name: oxycodon e-acetam inophen Send Method: E-Prescr ibed Sub s Allowed: subs OK Medic ationGen ericName : oxycodon e-acetam inophen Not Available Not Available Not Available citalopra m 20 mg tablet TAKE 1 TABLET BY MOUTH ONCE DAILY 03/05 completed Not Available Not Available Not Available hyoscyami ne ER 0.375 mg tablet,ex tended release,1 2 hr TAKE 1 TABLET BY MOUTH TWICE DAILY 03/05 completed Not Available Not Available Not Available omeprazol e ER 20 mg capsule,e xtended release 1 capsule every day by oral route. active Not Available Not Available No t Available simvastat in 20 mg tablet 03/01 completed Medicati on ID: [id number] Du ration Value: 90 Brand Name: simvasta tin Send Method: E-Prescr ibed Sub s Allowed: subs OK Medic ationGen ericName : simvasta tin Not Available Not Available Not Available hyoscyami ne sulfate 0.125 mg tablet 0.375 mg every day by oral route. 2016 active Not Available Not Available Not Avai lable gabapenti n 300 mg capsule TAKE 1 CAPSULE BY MOUTH TWICE DAILY active Not Available Not Available No t Available omeprazol e 20 mg capsule,d elayed release TAKE 1 CAPSULE BY MOUTH IN THE MORNING 03/05 completed Not Available Not Available Not Available hydrochlo rothiazid e 25 mg tablet TAKE 1 TABLET BY MOUTH ONCE DAILY 03/01 completed Not Available Not Available Not Available furosemid e 20 mg tablet 20 mg every day by oral route. active Not Available Not Available No t Available benazepri l 10 mg tablet 03/01 completed Medicati on ID: [id number] Du ration Value: 90 Brand Name: benazepr il Send Method: E-Prescr ibed Sub s Allowed: subs OK Medic ationGen ericName : benazepr il Not Available Not Available Not Available ketoconaz ole 2 % topical cream 03/05 completed Medicati on ID: [id number] D uration Value: 7 Brand Name: ketocona zole Sen d Method: E-Prescr ibed Sub s Allowed: subs OK Medic ationGen ericName : ketocona zole Not Available Not Available Not Available ipratropi um bromide 21 mcg (0.03 %) nasal spray 2 spray into both nostrils 03/01 completed Medicati on ID: [id number] Lisa dumont By Name: CECILIA Espinoza nd Name: ipratrop ium bromide Send Method: E-Prescr ibed Sub s Allowed: subs OK Speci al Instruct ion: as needed for postnasa l drainage Medicat ionGener icName: ipratrop ium bromide Not Available Not Available Not Available glipizide 5 mg tablet Take 5 mg every day by oral route. 03/05 completed Not Available Not Available Not Available olmesarta n 20 mg tablet TAKE 1 TABLET BY MOUTH ONCE DAILY active Not Available Not Available No t Available metformin ER 750 mg tablet,ex tended release 24 hr 03/01 completed Medicati on ID: [id number] D uration Value: 30 Brand Name: metformi n Send Method: E-Prescr ibed Sub s Allowed: subs OK Medic ationGen ericName : metformi n Not Available Not Available Not Available gabapenti n 300 mg tablet Take 600 mg every day by oral route. 03/05 completed Not Available Not Available Not Available Trulicity 1.5 mg/0.5 mL subcutane ous pen injector INJECT 1.5 MG (0.5 ML) SUBCUTAN EOUSLY ONCE A WEEK 03/01 completed Not Available Not Available Not Available Trulicity 3 mg/0.5 mL subcutane ous pen injector INJECT 3 MG (0.5 ML) SUBCUTAN EOUSLY ONCE A WEEK active Not Available Not Available No t Available Ozempic 2 mg/dose (8 mg/3 mL) subcutane ous pen injector active Not Available Not Available Not Available Vitals None Recorded Social History None recorded. Functional Status None recorded. Mental Status None recorded. Family History Nothing Reported. Medical History Condition Response Depression Y High Cholesterol Y Anxiety Y Diabetes Y Hypertension Y Gynecological HistoryNo gynecological history recorded. Obstetrics History GPAL:G 0 P 0 0 0 0 Past Encounters Encounter ID Performer Location Encounter Start Date Encounter Closed Date Diagnosis/Indication Diagnosis SNOMED-CT Code Diagnosis ICD10 Code Diagnosis Note [id number] DENNIS BECKETT MD [facility] [address] [phone] 03/05/2024 14:04:57 03/05/2024 14:24:05 Impacted cerumen of bilateral ears [id number] H61.23 Health Concerns Section Related Observation LastModified by Organization Detai ls LastModified Time None Recorded Concern Status LastModified by Organization Details LastModified Time None Recorded Advance Directives Directive None Recorded Payers Encounter Date Sequence Insurance Name Policy Number Policy Yousif Covered Member ID Yousif Member ID Guarantor Name 03/05/[address] [place] [address] [id number] Elidia Pratibha [id number] Elidia Pratibha Notes Date Note Type Note Provider Name and Address Organization Details Recorded Time 03/05/2024 text/html 78 year old adiel hamilton presents for ear cleaning. She denies otalgia or otorrhea. She admits to some hearing loss but is not interested in amplification or repeat testing today. Denies tinnitus and vertigo. DENNIS BECKETT MD [address] [place] [address], [phone], [facility] - [facility] 03/05/2024 15:28:48 OBGyn Episode No OBEpisode recorded.
--- OUTSIDE RECORDS SUMMARY | 2024-07-20 14:00 | XMS_ITS | Encounter Summary ---
Author Organization [facility] Address [address] [place] [address] Care Team Providers Care Appointment Manager Name Role Phone Mary Anne Bundy MD Primary Care Provider [phone] Encounter Details Date Type Department Care Team (Late st Contact Info) Description 05/03/2024 Lab Requisition [facility] - Main Lab [address] [facility] [employer] [place] [address] Jordi Marcial MD [address] [address] Encounter for screening for malignant neoplasm of colon Social History Tobacco Use Types Packs/Day Years Used Date Smoking Tobacco: Former Cigarettes Smokeless Tobacco: Former Alcohol Use Standard Drinks/Week Comments Yes 0 (1 standard drink = 0.6 oz pur e alcohol) once in a while rare Comments Unknown Sex and Gender Information Value Date Recorded Sex Assigned at Not on file Legal Sex Female 2:42 AM EST Gender Identity Not on file Sexual Orientation Not on file documented as of this encounter Plan of Treatment Not on file documented as of this encounter Procedures Procedure Name Priority Date/Time Associated Diagnosis Comments TISSUE EXAM Routine 05/03/2024 Encounter for screening for malignant neoplasm of colon documented in this encounter Results * Tissue Exam (05/03/2024) Final Diagnosis A. Large Intestine, Sigmoid Colon, polyp biopsy: - Tubular adenoma. 05/04/2024 11:08 AM EST [facility]) [facility] Clinical Information Screening for malignant neoplasm in the colon Polyp 05/04/2024 11:[address] [facility] Gross Description A. Large Intestine, Sigmoid Colon, polyp biopsy: Labeled sigmoid colon polyp biopsy . Received in formalin is a 0.3 cm irregular vieira-pink mucosal tissue fragment which is wrapped in paper and submitted in total in one cassette, one piece, multiple levels on one slide. MAGDA 05/04/2024 11:[address] [facility] Disclaimer Unless otherwise specified, all tissue is 10% NB formalin fixed and paraffin embedded. 05/04/2024 11:[address] [facility] Tissue Sigmoid colon structure / Unknown 05/03/2024 05/03/2024 2:45 PM EST Jordi Marcial MD LAB PATHOLOGY ORDERABLES Final Result [facility] [address] [place] [address], documented in this encounter Visit Diagnoses Diagnosis Encounter for screening for malignant neoplasm of colon documented in this encounter Care Teams Appointment Manager Relationship Specialty Start Date End Date Mary Anne Bundy MD PCP - General Internal Medicine 04/05/24 documented as of this encounter
--- OUTSIDE RECORDS SUMMARY | 2024-07-20 14:00 | XMS_ITS ---
Author Organization [facility] Address [address] [place] [address] Care Team Providers Care Asbestos Remover Name Role Phone Mary Anne Bundy MD Primary Care Provider Unavaila Carmita Wolfe Unavailable [phone] Allergies No Known Allergies REASON FOR VISIT At Risk Footcare, Painful Nail(s) aggrevated by shoes and causing difficulty standing/walking. Medications Medication SIG (Take, Route, Frequency, Duration) Notes Start Date End Date Status Gabapentin Not-Takin g Amlodipine & Diet Manage Prod Not-Taking Simvastatin Not-Taki ng Benazepril HCl Not-T aking metFORMIN HCl Not-Ta starla Biotin 5000 MCG as directed Orally Not-Taking Trulicity Active hydroCHLOROthiazide 25 mg Once a day Not-Taking Olmesartan Medoxomil 20 MG 1 tablet Oral ly Once a day for 30 day(s) Active Omeprazole 20 MG 1 capsule 30 minutes before morning meal Orally Once a day for 30 day(s) Active glipiZIDE Active Atorvastatin Calcium Active Hyoscyamine Active Lasix 20 MG 1 tablet Orally Once a day Active Citalopram & Diet Manage Prod Active Social History Tobacco Use: Social History Observation Description Date Details (start date - stop date) Former Smoker NA - NA Tobacco Use/Smoking Question Answer Notes Are you a: former smoker Additional Findings: Tobacco Non-User Current no n-smoker Tobacco use other than smoking: Question Answer Notes Are you an other tobacco user? No Vital Signs Height 5 ft 2 in in 01/15/2024 Weight 225 lbs 01/15/2024 BMI 41.15 kg/m2 01/15/2024 Blood pressure systolic 112 mm Hg 01/15/20 24 Blood pressure diastolic 60 mm Hg 024 Procedures Procedure Date Ordered Date Performed Result Body Sit e 12442-RKBINFX NAIL, 6 OR MORE 01/15/2024 N/A 55416-GXYO SKIN LESIONS, 2 TO 4 01/15/2024 N/A Encounters Encounter Location Date Provider Diagnosis [facility] [address] [address] 01/15/2024 Carmita Costello Tinea unguium B35.1 ; Type 2 diabetes mellitus without complications E11.9 ; Pain in right toe(s) M79.674 and Pain in left toe(s) M79.675 Assessments Encounter Date Diagnosis (ICD Code) Assessment Notes Treatment Notes Treatment Clinical Notes Section Notes 01/15/2024 Tinea unguium (ICD-10 - B35.1) 01/15/2024 Type 2 diabetes mellitus without complications (ICD-10 - E11.9) 01/15/2024 Pain in right toe(s) (ICD-10 - M79.674) 01/15/2024 Pain in left toe(s) (ICD-10 - M79.675) Plan Of Treatment Pending Test Test Name Order Date 19753-OGXWXCE NAIL, 6 OR MORE 01/15/2024 53039-WGYE SKIN LESIONS, 2 TO 4 01/15/20 24 Next Appt Details Follow Up: prn, Reason: Provider Name:Carmita Costello , 07/26/2024 01:30:00 PM, [address] [place] [address], [phone], Procedure Notes * Category Sub-Category Detail Notes Debride Nail 6-10 Nail debridement Nail debridem ent performed extensively to reduce/remove overall nail length and girth, subungual debris, and necrotic tissue, by manual and electrical means with use of a nail nipper and/or dremel, to more viable healthy nail plate or bed tissue 6-10. Silver nitrate used for any petechial bleeding as necessary. Patient chooses, Formula 7, tx (01400) Keratoma Treatment Parring or Cutting o f Benign Hyperkeratotic Lesion(s) 35980 (2-4 Lesions) - The Benign hyperkeratotic lesions, as described above were pared, and/or cut utilizing a sterile #15 blade, tissue nippers, and/or dremel Progress Notes * Elizabeth AQUINOOB: [birth year] (78 yo F)Acc No.[id number]:01/15/2024 Progress Note Patient:?Elidia Aquino Provider:?Carmita Costello DPM :1945???Age:78 Y???Sex:Female D ate:01/15/2024 Address:[address] [place], [place] [id number] Pcp:Mary Anne Bundy MD Subjective: * Chief Complaints: * ???At Risk FootcarePainful N ail(s) aggrevated by shoes and causing difficulty standing/walking. * HPI: ???At Risk footcare:?Pt States Last PCP Visit:?Date?10/30/2023 * Medical History:? * Surgical History:?cholecyste ctomy cataract surgery ou 2009left wrist 04/2011Lipoma 08/2017Macular hole repair 06/2021 * Hospitalization/Major Diagno stic Procedure:?Denies Past Hospitalization * Family History:?Mother: dece ased, foot problems, diagnosed with Unspecified essential hypertension.?Father: , diagnosed with Diabetic - NIDDM, Unspecified heart disease.? single. * Social History:?Tobacco Use:?Tobacco Use/Smoking?Are you a:?former smoker ?Additional Findings: Tobacco Non-User?Current non-smoker ?Tobacco use other than smoking?Are you an other tobacco user??No ???Miscellaneous:?Caffeine: yes, 1-2 cups per day. ?no Children. ?Exercise: yes, water aerobics. ?Marital status: single, never . ?Occupation: retired. * Medications:?TakingLasix 20 MG Tablet 1 tablet Orally Once a dayCitalopram & Diet Manage Prod Atorvastatin Calcium Hyoscyamine glipiZIDE Olmesartan Medoxomil 20 MG Tablet 1 tablet Orally Once a dayOmeprazole 20 MG Capsule Delayed Release 1 capsule 30 minutes before morning meal Orally Once a dayTrulicity Taking Lasix 20 MG Tablet 1 tablet Orally Once a dayTaking Citalopram & Diet Manage Prod Taking Atorvastatin Calcium Taking Hyoscyamine Taking glipiZIDE Taking Olmesartan Medoxomil 20 MG Tablet 1 tablet Orally Once a dayTaking Omeprazole 20 MG Capsule Delayed Release 1 capsule 30 minutes before morning meal Orally Once a dayTaking Trulicity Not-Taking/PRNhydroCHLOROthiazide 25 mg Once a dayBiotin 5000 MCG Tablet as directed Orally Gabapentin Benazepril HCl metFORMIN HCl Simvastatin Amlodipine & Diet Manage Prod Medication List reviewed and reconciled with the patientNot-Taking/PRN hydroCHLOROthiazide 25 mg Once a dayNot-Taking/PRN Biotin 5000 MCG Tablet as directed Orally Not-Taking/PRN Gabapentin Not-Taking/PRN Benazepril HCl Not-Taking/PRN metFORMIN HCl Not-Taking/PRN Simvastatin Not-Taking/PRN Amlodipine & Diet Manage Prod Medication List reviewed and reconciled with the patient * Allergies:?N.K.D.A.yes[Aller gies Verified] Objective: * Vitals:?Ht: 5 ft 2 in, Wt: 2 25, BMI: 41.15, Shoe size: 8, BP: 112/60 mm Hg, BS: not taken, Wt-k.06 kg. * ???Past Orders: ???Lab:HEMOGLOBIN A1C (GLYCO HEMOGLOBIN) (Order Date - 10/30/2023) (Collection Date - 10/30/2023) ? Value Reference Range ?HEMOGLOBIN A1C % (HH) 6.5 * Examination: ???Ophthalmology Referral: ?DIABETES EYE EXAM?Neurological: ?SENSORY:?Neurological exam reveals intact sensorium, pain sensation normal, vibration sensation intact, pinprick sensation is normal in the lower extremities, Pt denies, anesthesia, burning, paresthesia, tingling, B/L.?Vascular: ?DP PULSES:? 2/4, B/L.?PT PULSES:? 2/4, B/L.?Dermatologic: ?SKIN FINDINGS:?Skin exam reveals Keratotic lesion(s) located at, SUB MTH (s), 5, Heel(s),B/L .?Nails: ?NAILS are:?elongated,overgrown,dystrophic,greater than 3mm thick,discolored and friable with crumbly malodorous subungual debris, with pain on palpation. 1-5 Left foot, Left foot, , 4,5 Right foot.? Assessment: * Assessment: 1.?Tinea unguium - B35.1?2.? Type 2 diabetes mellitus without complications - E11.9 (Primary)?3.?Pain in right toe(s) - M79.674?4.?Pain in left toe(s) - M79.675? Plan: * Treatment: 2.?Tinea unguium?Procedure: 87346-OPHPSRO NAIL, 6 OR MORE * Procedures:?Debride Nail 6-10:?Nail debridement?Nail debridement performed extensively to reduce/remove overall nail length and girth, subungual debris, and necrotic tissue, by manual and electrical means with use of a nail nipper and/or dremel, to more viable healthy nail plate or bed tissue 6-10. Silver nitrate used for any petechial bleeding as necessary. Patient chooses, Formula 7, tx (14980).?Keratoma Treatment:?Parring or Cutting of Benign Hyperkeratotic Lesion(s)?81052 (2-4 Lesions) - The Benign hyperkeratotic lesions, as described above were pared, and/or cut utilizing a sterile #15 blade, tissue nippers, and/or dremel.? * Procedure Codes:?82183 DEBRI DE NAIL, 6 OR MORE, Modifiers: XS 70045 TRIM SKIN LESIONS, 2 TO 4, Modifiers: XS * Follow Up:?prn * Images: * Sign off status: Completed true * Provider:?Carmita Costello DPM Date:?2023 Generated for Tory jeff/Keyonna/Michael on:?07/20/2024 01:59 PM EST History and Physical Notes * HPI (History of Present Illness) Category Sub-Category Detail Notes Category Not es At Risk footcare Pt States Last PCP Visit: Date: 4 Examination Category Sub-Category Detail Notes Category Not es Ingrown Nail INSPECTION: Neurological SENSORY: Neurological exa m reveals intact sensorium, pain sensation normal, vibration sensation intact, pinprick sensation is normal in the lower extremities, Pt denies, anesthesia, burning, paresthesia, tingling, B/L BABINSKI REFLEX: TINEL'S COMPRESSION: DEEP TENDON REFLEXES: Dermatologic SKIN FINDINGS: Skin exam reveal s Keratotic lesion(s) located at, SUB MTH (s), 5, Heel(s),B/L Ophthalmology Referral DIABETES EYE EXAM Diabetic Retinopa thy Screening:: Yes Findings of Diabetic Eye Exam:: no retin opathy Vascular DP PULSES (B): 2/4, B/L PT PULSES (B): 2/4, B/L CAPILLARY FILL TIME: Nails NAILS are: elongated,overgr own,dystrophic,greater than 3mm thick,discolored and friable with crumbly malodorous subungual debris, with pain on palpation. 1-5 Left foot, Left foot, , 4,5 Right foot
--- OUTSIDE RECORDS SUMMARY | 2024-07-20 14:00 | XMS_ITS | Patient Health Record ---
Author Organization [facility] Address [address] [address] Care Team Providers Care Dredge Runner Name Role Phone Mary Anne Bundy MD Primary Care Provider Evelyn Beal Unavailable [phone] Allergies No Known Allergies Results Component Value Reference Range Notes Urinalysis Reviewed date:01/29/2024 03:37:31 PM Interpretation: Performing Lab: Notes/Report: PH 5.0 PROTEIN neg GLUCOSE neg BLOOD neg Reason For Referral No Information Medications Medication SIG (Take, Route, Frequency, Duration) Notes Start Date End Date Status Hyoscyamine Sulfate 0.125 MG 1 tablet before meals as needed Orally 3 x a day Active Citalopram Hydrobromide 40 MG 1 tablet Orally Once a day Active Ozempic (2 MG/DOSE) 8 MG/3ML Subcutaneous for 84 Days Active Gabapentin 300 MG 1 capsule Orally Thr ee times a day Active Atorvastatin Calcium 20 MG 1 tablet Orally Once a day Active Omeprazole 20 MG 1 capsule Orally Onc e a day Active glipiZIDE 10 MG 1 tablet Orally Once a day Active Biotin 1000 MCG 1/2 tablet Orally On ce a day Takes 500mcg daily Active Probiotic Active Trulicity 1.5 MG/0.5ML as directed Subcutaneous Once a week Active Benazepril HCl 10 MG 1 tablet Orally Onc e a day Active Furosemide 20 MG Oral for 90 Days Active Social History Tobacco Use: Social History Observation Description Date Details (start date - stop date) Former Smoker NA - NA Tobacco Use/Smoking Question Answer Notes Are you a former smoker How long has it been since you last smoked? 1-5 years Alcohol Screen (Audit-C) Question Answer Notes Did you have a drink contain ing alcohol in the past year? Yes How often did you have a dri nk containing alcohol in the past year? Monthly or less (1 point) How many drinks did you have on a typical day when you were drinking in the past year? 1 or 2 drinks (0 point) How often did you have 6 or more drinks on one occasion in the past year? 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) Active confirmed Problem Morbid obesity (disorder) (069220690) Morbid (severe) obesity due to excess calories (E66.01) Active confirmed Vital Signs Temperature 97.5 degrees Fahrenheit 01/29/2024 Blood pressure diastolic 58 mm Hg 01/29/2024 Height 62 in 01/29/2024 Blood pressure systolic 110 mm Hg 01/29/2024 Weight 220 lbs 01/29/2024 BMI 40.23 kg/m2 01/29/2024 Encounters Encounter Location Date Provider Diagnosis [address] [address] 01/29/2024 Evelyn Vazquez Encounter for gynecological examination (general) (routine) without abnormal findings Z01.419 ; Encounter for screening mammogram for malignant neoplasm of breast Z12.31 ; Encounter for screening for osteoporosis Z13.820 and Leiomyoma of uterus, unspecified D25.9 Assessments Encounter Date Diagnosis (ICD Code) Assessment Notes Treatment Notes Treatment Clinical Notes Section Notes 01/29/2024 Encounter for gynecological examination (general) (routine) without abnormal findings (ICD-10 - Z01.419) NO MORE PAP TESTS. 01/29/2024 Encounter for screening mammogram for malignant neoplasm of breast (ICD-10 - Z12.31) REGULAR MAMMOGRAMS AND SBE'S WERE RECOMMENDED. 01/29/2024 Encounter for screening for osteoporosis (ICD-10 - Z13.820) DISCUSSED HER LAST BMD RESULTS DONE IN 2020. RECOMMENDED REPEAT BMD NEXT YEAR. 01/29/2024 Leiomyoma of uterus, unspecified (ICD-10 - D25.9) DISCUSSED FIBROIDS AND THEIR BENIGN NATURE. Plan Of Treatment Pending Test Test Name Order Date MAMMOGRAM, SCREENING 08/08/2021 MAMMOGRAM, SCREENING 01/23/2023 MAMMOGRAM, SCREENING 01/29/2024 Urinalysis 04/05/2020 Urinalysis 03/18/2017 Urinalysis 03/24/2019 BONE DENSITY 04/05/2020 BONE DENSITY 01/29/2024 MM Digital Mammo Screening 01/29/2024 MM Digital Mammo Screening 08/08/2021 MM Digital Mammo Screening 01/23/2023 Insurance Providers Payer Name Payer Address Payer Phone Subscriber Number Group Number Insured Name Patient Relationship to Insured Coverage Start Date Coverage End Date [facility] [address] [place] [address] [id number] VALENTIN ESTRADA Self - patient is the insured Medical (General) History Medical History History ICD Code Essential (primary) hypertension I10 Arthritis Gallbladder Disease 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
--- OUTSIDE RECORDS SUMMARY | 2024-07-20 14:00 | XMS_ITS ---
Author Organization [facility] Address [address] [address] Care Team Providers Care Quarry Supervisor Dimension Stone Name Role Phone Gregor SHULTZ, Mary Anne Primary Care Provider Evelyn Beal Unavailable [phone] REASON FOR VISIT ULTRA - FIBROIDS Encounters Encounter Location Date Provider Diagnosis [facility] [address] [address] 02/14/2023 Evelyn Vazquez Plan Of Treatment No Information Progress Notes * FARAZ AQUINOOB: [birth year]45 (78 yo F)Acc No.[id number]:02/14/2023 PROGRESS NOTES Patient:?ZAYNABDESHAUN VALENTIN Appointment Provider:?Evelyn jimenez M.D. :1945???Age:77 Y???Sex:Female D ate:02/14/2023 Address:[address] [place], [place] [id number] Pcp:Mary Anne Bundy MD Subjective: * Chief Complaints: * ???1. ULTRA - FIBROIDS. * Medical History:? Objective: * Vitals:? Assessment: Plan: * Treatment: * Images: Billing Information: * Visit Code:? * Procedure Codes:? * Electronic signature of Jake Vazquez MD on 07/20/2024 at 02:00 PM EST Sign off status: Pending * Appointment Provider:?Evelyn Vazquez M.D. Date:?02/14/2023 Generated for Tory jeff/Keyonna/Kennethitting on:?07/20/2024 02:00 PM EST
--- OUTSIDE RECORDS SUMMARY | 2024-07-20 14:00 | XMS_ITS | Clinical Summary ---
Author Organization [facility] [address] [facility] Address [address] [place] [address] Phone Care Team Providers Care Cuff Runner Name Role Phone Mary Anne Bundy MD Primary Care Provider [phone] Allergies No known active allergies Medications atorvastatin (LIPITOR) 20 mg tablet Take 1 tablet (20 mg total) by mouth 1 (one) time each day. 4 Active furosemide (LASIX) 20 mg tablet Take 1 tablet (20 mg total) by mouth 1 (one) time each day. 4 Active gabapentin (NEURONTIN) 300 mg capsule Take 1 capsule (300 mg total) by mouth 2 (two) times a day. 4 Active glipiZIDE (GLUCOTROL) 10 mg tablet Take 1 tablet (10 mg total) by mouth 2 (two) times a day before meals. 4 Active hydroCHLOROthia zide (HYDRODIURIL) 25 mg tablet Take 1 tablet (25 mg total) by mouth 1 (one) time each day. 4 Active omeprazole (PriLOSEC) [address] capsule Take 1 capsule (20 mg total) by mouth 1 (one) time each day. 4 Active Ozempic 2 mg/dose (8 mg/3 mL) injection pen 4 Active triamcinolone (KENALOG) 0.1 % cream Apply topically 2 (two) times a day. 3 Active multivit with minerals/lutein (MULTIVITAMIN 50 PLUS ORAL) MULTIVITAMIN, Refills 0, Maintenance, 10/02/15 13:41:06, Compound 6 Active Active Problems Problem Noted Date Diagnosed Date Colon cancer screening 03/31/2024 Type 2 diabetes mellitus without complication Encounters Date Type Department Care Team Description 05/03/2024 Lab Requisition [facility] [address] [facility] [employer] [place] [address] Jordi Marcial MD Encounter for screening for malignant neoplasm of colon from Last 3 Months Social History Tobacco Use Types Packs/Day Years Used Date Smoking Tobacco: Former Cigarettes Smokeless Tobacco: Former Tobacco Cessation:Counseling Given: Not Answered Alcohol Use Standard Drinks/Week Comments Yes 0 (1 standard drink = 0.6 oz pur e alcohol) once in a while rare Comments Unknown Sex and Gender Information Value Date Recorded Sex Assigned at Not on file Legal Sex Female 2:42 AM EST Gender Identity Not on file Sexual Orientation Not on file Obstetrics History Last Filed Vital Signs Vital Sign Reading Time Taken Comments Blood Pressure - - Pulse - - Temperature - - Respiratory Rate - - Oxygen Saturation - - Inhaled Oxygen Concentration - - Weight 94.3 kg (208 lb) 04/05/2024 2:32 PM EST Height 157.5 cm (5' 2 ) 04/05/2024 2:32 PM EST Body Mass Index 38.04 04/05/2024 2:32 PM EST Plan of Treatment Health Maintenance Due Date Last Done Comments Diabetes: Annual GFR (Glomerular Filtration Rate) 1945 Diabetes: Annual Foot Exam 1954 Diabetes: Annual Retina Eye Exam 1955 Zoster Vaccines (1 of 2) 1994 DTaP,Tdap,and Td Vaccines (2 - Td or Tdap) 01/04/2023 01/04/2013 Cholesterol Screening (Lipid Panel) 03/10/2024 Depression Screening 03/10/2024 Falls Risk Assessment 03/10/2024 Hepatitis C Screening 03/10/2024 Osteoporosis Screening (Bone Density Screening) 03/10/2024 Social Influencers of Health Screening 03/10/2024 Diabetes: Annual Urine Albumin-Creatinine Ratio (uACR) 03/31/2024 Diabetes: Blood Sugar Control Test (HGBA1C) 03/31/2024 Hypertension/CHF/CAD Annual BMP Blood Test 04/05/2024 RSV Immunization Patients 60+ Years Old Completed 03/05/2023 COVID-19 Vaccine Completed 02/06/2024, 09/2022, 02/11/2022, Additional history exists Influenza Vaccine Completed 02/06/2024, , 03/13/2022, Additional history exists Pneumococcal Vaccine: 50+ Years Completed 02/06/2024, 04/10/2015, 02/22/2013 HIB Vaccines Aged Out No longer eligi ble based on patient's age to complete this topic HPV Vaccines Aged Out No longer eligi ble based on patient's age to complete this topic Hepatitis A Vaccines Aged Out No long er eligible based on patient's age to complete this topic Hepatitis B Vaccines Aged Out No long er eligible based on patient's age to complete this topic IPV Vaccines Aged Out No longer eligi ble based on patient's age to complete this topic MMR Vaccines Aged Out No longer eligi ble based on patient's age to complete this topic Meningococcal ACWY Vaccine Aged Out N o longer eligible based on patient's age to complete this topic Meningococcal B Vacine Aged Out No lo nger eligible based on patient's age to complete this topic RSV Immunization Patients Under 20 months Aged Out No longer eligible based on patient's age to complete this topic Varicella Vaccines Aged Out No longer eligible based on patient's age to complete this topic Procedures Procedure Name Priority Date/Time Associated Diagnosis Comments EXTERNAL COLONOSCOPY REPORT Routine 05/03/2024 7:04 AM EST TISSUE EXAM Routine 05/03/2024 Encounter for screening for malignant neoplasm of colon from Last 3 Months Results * External Colonoscopy Report (05/03/2024 7:04 AM EST) Anatomical Region Laterality Modality Endoscopy us Historical Provider GI~PROCEDURE ORDERABLES F inal Result * Tissue Exam (05/03/2024) Final Diagnosis A. Large Intestine, Sigmoid Colon, polyp biopsy: - Tubular adenoma. 05/04/2024 11:08 AM EST [facility] [place] [place] [facility] Clinical Information Screening for malignant neoplasm in the colon Polyp 05/04/2024 11:[address] [facility] Gross Description A. Large Intestine, Sigmoid Colon, polyp biopsy: Labeled sigmoid colon polyp biopsy . Received in formalin is a 0.3 cm irregular vieira-pink mucosal tissue fragment which is wrapped in paper and submitted in total in one cassette, one piece, multiple levels on one slide. MAGDA 05/04/2024 11:08 AM EST [facility] Disclaimer Unless otherwise specified, all tissue is 10% NB formalin fixed and paraffin embedded. 05/04/2024 11:08 AM EST [facility] Tissue Sigmoid colon structure / Unknown 05/03/2024 05/03/2024 2:45 PM EST Jordi Marcial MD LAB PATHOLOGY ORDERABLES Final Result [facility] [address] [place] [address], from Last 3 Months Insurance [facility] Care Teams Cuff Runner Relationship Specialty Start Date End Date Mary Anne Bundy MD PCP - General Internal Medicine 04/05/24
--- OUTSIDE RECORDS SUMMARY | 2024-07-20 14:00 | XMS_ITS ---
Author Organization [facility] Address [address] [place] [address] Care Team Providers Care Sparker And Patcher Name Role Phone Mary Anne Bundy MD Primary Care Provider Unavaila Carmita Wolfe Unavailable [phone] Allergies No Known Allergies REASON FOR VISIT At Risk Footcare, Painful Nail(s) aggrevated by shoes and causing difficulty standing/walking. Medications Medication SIG (Take, Route, Frequency, Duration) Notes Start Date End Date Status metFORMIN HCl Not-Ta starla Benazepril HCl Not-T aking Gabapentin Not-Takin g Amlodipine & Diet Manage Prod Not-Taking Simvastatin Not-Taki ng Biotin 5000 MCG as directed Orally Not-Taking hydroCHLOROthiazide 25 mg Once a day Not-Taking Trulicity Active Omeprazole 20 MG 1 capsule 30 minutes before morning meal Orally Once a day for 30 day(s) Active Olmesartan Medoxomil 20 MG 1 tablet Oral ly Once a day for 30 day(s) Active glipiZIDE Active Hyoscyamine Active Atorvastatin Calcium Active Citalopram & Diet Manage Prod Active Lasix 20 MG 1 tablet Orally Once a day Active Centrum Vitamints - as directed Orally Active Milk of Magnesia Act edis Ozempic Active Social History Tobacco Use: Social History Observation Description Date Details (start date - stop date) Former Smoker NA - NA Tobacco Use/Smoking Question Answer Notes Are you a: former smoker Additional Findings: Tobacco Non-User Current no n-smoker Alcohol Screen Question Answer Notes Did you have a drink contain ing alcohol in the past year? Yes How often did you have a dri nk containing alcohol in the past year? Monthly or less (1 point) Points 1 Interpretation Negative Tobacco use other than smoking: Question Answer Notes Are you an other tobacco user? No Vital Signs Height 5 ft 2 in in 04/20/2024 Weight 225 lbs 04/20/2024 BMI 41.15 kg/m2 04/20/2024 Procedures Procedure Date Ordered Date Performed Result Body Sit e 57844-DMUFLVP NAIL, 6 OR MORE 04/20/2024 N/A 82126-ABLQ SKIN LESIONS, 2 TO 4 04/20/2024 N/A Encounters Encounter Location Date Provider Diagnosis [facility] [address] 04/20/2024 Carmita Costello Tinea unguium B35.1 ; Type 2 diabetes mellitus without complications E11.9 ; Pain in right toe(s) M79.674 and Pain in left toe(s) M79.675 Assessments Encounter Date Diagnosis (ICD Code) Assessment Notes Treatment Notes Treatment Clinical Notes Section Notes 04/20/2024 Tinea unguium (ICD-10 - B35.1) 04/20/2024 Type 2 diabetes mellitus without complications (ICD-10 - E11.9) 04/20/2024 Pain in right toe(s) (ICD-10 - M79.674) 04/20/2024 Pain in left toe(s) (ICD-10 - M79.675) Plan Of Treatment Pending Test Test Name Order Date 50794-BRVSVGX NAIL, 6 OR MORE 04/20/2024 63509-KLYX SKIN LESIONS, 2 TO 4 04/20/20 24 Next Appt Details Follow Up: prn, Reason: Provider Name:Carmita Costello , 07/26/2024 01:30:00 PM, [address] [place], [address], Procedure Notes * Category Sub-Category Detail Notes Debride Nail 6-10 Nail debridement Performance o f this nail treatment by a nonprofessional would put this patients foot and overall health at risk. Therefore, debridement to affected nail(s), as described in exam, was performed extensively to reduce/remove overall nail length, girth, thickness, subungual debris, and necrotic tissue, by manual and/or electrical means through the use of a nail nipper and/or dremel-type shot grinder operator, to a more viable healthy nail plate or bed tissue 6-10 nails in total. Silver nitrate was used for any petechial bleeding as necessary. Definitive antifungal treatment options, both pharmaceutical and surgical, have been reviewed and discussed with the patient. The patient solely prefers the use of intermittent/as needed professional debridement services for their nail condition and understands the need for additional periodic treatments to maintain effectiveness in symptomatic relief - 81729-(1-5 left.4.5 Right) Keratoma Treatment Parring or Cutting o f Benign Hyperkeratotic Lesion(s) (-56) 2-4 Lesions - The Benign hyperkeratotic lesions, ( 4) in total, locations as stated and described in exam, were pared, and/or cut utilizing a sterile 15 blade, tissue nippers, and/or power dremel instrumentation - 11960 Progress Notes * Elizabeth AQUINOOB: 9[birth year] (78 yo F)Acc No.[id number]:04/20/2024 Progress Note Patient:?Elidia AQUINO Provider:?Carmita Costello DPM :1945???Age:78 Y???Sex:Female D ate:04/20/2024 Address:[address] [place], [place] [id number] Pcp:Mary Anne Bundy MD Subjective: * Chief Complaints: * ???At Risk FootcarePainful N ail(s) aggrevated by shoes and causing difficulty standing/walking. * HPI: ???At Risk footcare:?Pt States Last PCP Visit:?Date?10/30/2023 * ROS:?General/Constitutional:?Nausea?denies.?Vomiting?denies.?Hunger Thirst?denies.?Loss appetite?denies.?Chills?denies.?Fatigue?denies.?Fever?denies.?Night Sweats?denies.?Unexplained weight loss?denies.?Ophthalmologic:?Blurred vision?denies.?Red eye?denies.?HEENTM:?Dentures?denies.?Dizziness?denies.?Glasses/contacts?admits.?Retinopathy?den ies.?Blurred/double vision?denies.?TMJ?denies.?Discharge/drainage?denies.?Implants?denies.?Hard of hearing denies.?Difficulty chewing/swallowing/speaking?denies.?Nose bleeds?denies.?Sore mouth?denies.?Swollen glands?denies.?Respiratory:?On O xygen?denies.?Pneumonia/pleurisy?denies.?Bronchitis?denies.?Emphysema?denies.?Co ughing?denies.?Cough blood?denies.?Shortness of breath?denies.?Wheezing?denies.?Cardiovascular:?Pacemaker?denies.?MVP?denies.?WPW?denies.?CHF?denies.?Heart attack?denies.?Septal defect?denies.?Rapid beat?denies.?Chest pain ?denies.?Atrial Fib.?denies.?Murmur/Palpitations?denies.?Gastrointestinal:?Hemorrhoids?denies.?Stomach/Abdominal pain?denies.?Dark blood stool?denies.?Irritable bowel ?denies.?Constipation?denies.?Diarrhea?denies.?Vomiting?denies.?Hematology:?Swelling?admits.?Bruising?denies.?Bleeding problem?denies.?Genitourinary:?Blood urine?denies.?Frequent/Painfu/urination/bladder control?denies.?Kidney stones?denies.?Infection (UTI)?denies.?Nephropathy?denies.?Musculoskeletal:?Hammertoes?denies.?Bunions?denies.?Scoliosis/kyphosis?denies.?Muscle cramps / walking?denies.?Generalized aches and pains?denies.?Weakness?denies.?Integ.:?Singletary?denies.?Scars?denies.?Corns/calluses?denies.?Ingrown nails?denies.?Painful nails?admits.?Rashes?denies.?Neurologic:?Difficulty sleeping?denies.?Bipolar?denies.?Brain disorder?denies.?Balance t rouble?denies.?Confusion?denies.?Fainting/blackouts?denies.?Headache?denies.?Honorio mors?denies.? * Medical History:? * Surgical History:?cholecyste ctomy [...] than smoking?Are you an other tobacco user??No ???Drugs/Alcohol:?Drugs?Have you used drugs other than those for medical reasons in the past 12 months??No ?Alcohol Screen?Did you have a drink containing alcohol in the past year??Yes ?How often did you have a drink containing alcohol in the past year??Monthly or less (1 point) ?Points?1 ?Interpretation?Negative ???Miscellaneous:?Caffeine: yes, 1-2 cups per day. ?Children: no. ?Exercise: yes, water aerobics. ?Marital status: single, never . ?Occupation: retired. * Medications:?TakingOzempic M ilk of Magnesia Centrum Vitamints - Tablet Chewable as directed Orally Lasix 20 MG Tablet 1 tablet Orally Once a day Citalopram & Diet Manage Prod Atorvastatin Calcium Hyoscyamine glipiZIDE Olmesartan Medoxomil 20 MG Tablet 1 tablet Orally Once a day Omeprazole 20 MG Capsule Delayed Release 1 capsule 30 minutes before morning meal Orally Once a day Trulicity Taking Ozempic Taking Milk of Magnesia Taking Centrum Vitamints - Tablet Chewable as directed Orally Taking Lasix 20 MG Tablet 1 tablet Orally Once a day Taking Citalopram & Diet Manage Prod Taking Atorvastatin Calcium Taking Hyoscyamine Taking glipiZIDE Taking Olmesartan Medoxomil 20 MG Tablet 1 tablet Orally Once a day Taking Omeprazole 20 MG Capsule Delayed Release 1 capsule 30 minutes before morning meal Orally Once a day Taking Trulicity Not-Taking/PRNhydroCHLOROthiazide 25 mg Once a day Biotin 5000 MCG Tablet as directed Orally Gabapentin Benazepril HCl metFORMIN HCl Simvastatin Amlodipine & Diet Manage Prod Medication List reviewed and reconciled with the patientNot-Taking/PRN hydroCHLOROthiazide 25 mg Once a day Not-Taking/PRN Biotin 5000 MCG Tablet as directed Orally Not-Taking/PRN Gabapentin Not-Taking/PRN Benazepril HCl Not-Taking/PRN metFORMIN HCl Not-Taking/PRN Simvastatin Not-Taking/PRN Amlodipine & Diet Manage Prod Medication List reviewed and reconciled with the patient * Allergies:?N.K.D.A.yes[Aller gies Verified] Objective: * Vitals:?Ht: 5 ft 2 in, Wt: 2 25, BMI: 41.15, Shoe size: 8, BS: not taken, Wt-k.06 kg. * ???Past Orders: ???Lab:HEMOGLOBIN A1C (GLYCO HEMOGLOBIN) (Order Date - 10/30/2023) (Collection Date & Time - 10/30/2023 03:08 PM) ? Value Reference Range ?HEMOGLOBIN A1C % (HH) 6.5 * Examination: ???Ophthalmology Referral: ?DIABETES EYE EXAM?General Examination: ?GENERAL APPEARANCE:?Reveals a pleasant, alert, well nourished, well- developed, well hydrated individual, who demonstrates proper attention to hygiene/body habitus, and is in no acute distress, Pt serves as own historian for office visit today.?FOOT EXAM:?Footwear Evaluation?Neurological: ?SENSORY:?Neurological exam reveals intact sensorium, pain sensation normal, vibration sensation intact, pinprick sensation is normal in the lower extremities, Pt denies, anesthesia, burning, paresthesia, tingling, B/L.?Nails: ?NAILS are:?elongated,overgrown,dystrophic,greater than 3mm thick,discolored and friable with crumbly malodorous subungual debris, with pain on palpation. 1-5 Left foot, Left foot, , 4,5 Right foot.?Vascular: ?DP PULSES (B):? 2/4, B/L.?PT PULSES (B):? 2/4, B/L.?Dermatologic: ?SKIN FINDINGS:?Skin exam reveals Keratotic lesion(s) located at, SUB MTH (s), 5, Heel(s),B/L .? Assessment: * Assessment: 1.?Tinea unguium - B35.1???2 .?Type 2 diabetes mellitus without complications - E11.9 (Primary)???3.?Pain in right toe(s) - M79.674???4.?Pain in left toe(s) - M79.675??? Plan: * Treatment: 2.?Tinea unguium?Procedure: 36793-OOAKMBF NAIL, 6 OR MORE * Procedures:?Debride Nail 6-10:?Nail debridement?Performance of this nail treatment by a nonprofessional would put this patients foot and overall health at risk. Therefore, debridement to affected nail(s), as described in exam, was performed extensively to reduce/remove overall nail length, girth, thickness, subungual debris, and necrotic tissue, by manual and/or electrical means through the use of a nail nipper and/or dremel-type shot grinder operator, to a more viable healthy nail plate or bed tissue 6-10 nails in total. Silver nitrate was used for any petechial bleeding as necessary. Definitive antifungal treatment options, both pharmaceutical and surgical, have been reviewed and discussed with the patient. The patient solely prefers the use of intermittent/as needed professional debridement services for their nail condition and understands the need for additional periodic treatments to maintain effectiveness in symptomatic relief - 55257-(1-5 left.4.5 Right).?Keratoma Treatment:?Parring or Cutting of Benign Hyperkeratotic Lesion(s)?(-56) 2-4 Lesions - The Benign hyperkeratotic lesions, ( 4) in total, locations as stated and described in exam, were pared, and/or cut utilizing a sterile 15 blade, tissue nippers, and/or power dremel instrumentation - 17806.? * Procedure Codes:?35820 DEBRI DE NAIL, 6 OR MORE, Modifiers: XS 13170 TRIM SKIN LESIONS, 2 TO 4, Modifiers: XS * Follow Up:?prn * Images: * Sign off status: Completed true * Provider:?Carmita Costello DPM Date:?2023 Generated for Tory jeff/Keyonna/Kennethitting on:?07/20/2024 02:00 PM EST History and Physical Notes * HPI (History of Present Illness) Category Sub-Category Detail Notes Category Not es At Risk footcare Pt States Last PCP Visit: Date: Examination Category Sub-Category Detail Notes Category Not es Ingrown Nail INSPECTION: Neurological SENSORY: Neurological exa m reveals intact sensorium, pain sensation normal, vibration sensation intact, pinprick sensation is normal in the lower extremities, Pt denies, anesthesia, burning, paresthesia, tingling, B/L BABINSKI REFLEX: TINEL'S COMPRESSION: DEEP TENDON REFLEXES: Dermatologic SKIN FINDINGS: Skin exam reveal s Keratotic lesion(s) located at, SUB MTH (s), 5, Heel(s),B/L General Examination GENERAL APPEARANCE: Reveals a pleasant, alert, well nourished, well-developed, well hydrated individual, who demonstrates proper attention to hygiene/body habitus, and is in no acute distress, Pt serves as own historian for office visit today FOOT EXAM: Lower Extremity Neurological Exa m performed:: Yes Visual exam of foot performed:: Yes Date: 04/20/2024 Sensory testing performed:: sensations n ormal Sensory and motor testing performed:: se nsations and strength normal Pedal pulse taking performed:: 2+ Footwear Evaluation Footwear Evaluation performe d:: Yes Ophthalmology Referral DIABETES EYE EXAM Procedure Perform ed:: Yes ?Date of Exam Performed: 03/26/2024 Findings of Diabetic Eye Exam:: no retin opathy Vascular DP PULSES (B): 2/4, B/L PT PULSES (B): 2/4, B/L CAPILLARY FILL TIME: Nails NAILS are: elongated,overgr own,dystrophic,greater than 3mm thick,discolored and friable with crumbly malodorous subungual debris, with pain on palpation. 1-5 Left foot, Left foot, , 4,5 Right foot
--- OUTSIDE RECORDS SUMMARY | 2024-07-20 14:00 | XMS_ITS | Patient Health Record ---
Author Organization [facility] Address [address] [facility] [place] [address] Care Team Providers Care Insole Rounder Name Role Phone Mary Anne Bundy MD Primary Care Provider Unavaila Carmita Wolfe Unavailable [phone] Allergies No Known Allergies Results Component Value Reference Range Notes HEMOGLOBIN A1C (GLYCOHEMOGLO BIN) Reviewed date:01/15/2024 03:09:14 PM Interpretation: Performing Lab: Notes/Report: HEMOGLOBIN A1C % (HH) 6.5 Reason For Referral No Information Medications Medication SIG (Take, Route, Frequency, Duration) Notes Start Date End Date Status glipiZIDE Active Hyoscyamine Active Amlodipine & Diet Manage Prod Not-Taking Atorvastatin Calcium Active Simvastatin Not-Taki ng Citalopram & Diet Manage Prod Active Lasix 20 MG 1 tablet Orally Once a day Active Centrum Vitamints - as directed Orally Active Milk of Magnesia Act edis Ozempic Active metFORMIN HCl Not-Ta starla Benazepril HCl Not-T aking Gabapentin Not-Takin g Biotin 5000 MCG as directed Orally Not-Taking hydroCHLOROthiazide 25 mg Once a day Not-Taking Trulicity Active Omeprazole 20 MG 1 capsule 30 minutes before morning meal Orally Once a day for 30 day(s) Active Olmesartan Medoxomil 20 MG 1 tablet Oral ly Once a day for 30 day(s) Active Immunizations Vaccine Route Administration Date Status Comme nts COVID-19 Pfizer BioNT[employer] Vaccine Unknown 02/16/2021 Administered 1st dose 06/27/2020 Second Dose: 07/19/2020 Influenza Unknown 07/01/2016 Refused Influenza Unknown 03/26/2017 Administered Influenza Unknown 05/01/2018 Administered Influenza Unknown 01/25/2019 Administered Influenza Unknown 02/24/2020 Administered Influenza Unknown 02/23/2021 Administered Influenza Unknown 01/24/2023 Administered Social History Tobacco Use: Social History Observation [...] Are you an other tobacco user? No Problems Problem Type SNOMED Code ICD Code Onset Dates Problem Status W/U Status Risk Notes Problem Type II diabetes mellitus without complication ([id number]) Type 2 diabetes mellitus without complications (E11.9) Active confirmed Vital Signs Blood pressure diastolic 60 mm Hg 01/15/2024 Height 5 ft 2 in in 04/20/2024 Blood pressure systolic 112 mm Hg 01/15/2024 Weight 225 lbs 04/20/2024 BMI 41.15 kg/m2 04/20/2024 Procedures Procedure Date Ordered Date Performed Result Body Sit e 06825-WBMVTHW NAIL, 6 OR MORE 09/25/2023 N/A 13834-WKPM SKIN LESIONS, 2 TO 4 09/25/2023 N/A 93276-SXJDDRW NAIL, 6 OR MORE 01/15/2024 N/A 26854-OSRI SKIN LESIONS, 2 TO 4 01/15/2024 N/A 17875-JVTQHCF NAIL, 6 OR MORE 04/20/2024 N/A 51617-CYEX SKIN LESIONS, 2 TO 4 04/20/2024 N/A Encounters Encounter Location Date [facility] [address] [facility]/25/2023 Carmita Black Tinea unguium B35.1 ; Type 2 diabetes mellitus without complications E11.9 ; Pain in right toe(s) M79.674 and Pain in left toe(s) M79.675 [facility] [address] 01/15/2024 Carmita Black Tinea unguium B35.1 ; Type 2 diabetes mellitus without complications E11.9 ; Pain in right toe(s) M79.674 and Pain in left toe(s) M79.675 [facility] [address] 04/20/2024 Carmita Costello Tinea unguium B35.1 ; Type 2 diabetes mellitus without complications E11.9 ; Pain in right toe(s) M79.674 and Pain in left toe(s) M79.675 [facility] [address] [place] [address] 09/25/2023 Carmita Costello Assessments Encounter Date Diagnosis (ICD Code) Assessment Notes Treatment Notes Treatment Clinical Notes Section Notes 09/25/2023 Tinea unguium (ICD-10 - B35.1) 01/15/2024 Tinea unguium (ICD-10 - B35.1) 04/20/2024 Tinea unguium (ICD-10 - B35.1) 01/15/2024 Type 2 diabetes mellitus without complications (ICD-10 - E11.9) 04/20/2024 Type 2 diabetes mellitus without complications (ICD-10 - E11.9) 09/25/2023 Type 2 diabetes mellitus without complications (ICD-10 - E11.9) 09/25/2023 Pain in right toe(s) (ICD-10 - M79.674) 01/15/2024 Pain in right toe(s) (ICD-10 - M79.674) 04/20/2024 Pain in right toe(s) (ICD-10 - M79.674) 04/20/2024 Pain in left toe(s) (ICD-10 - M79.675) 01/15/2024 Pain in left toe(s) (ICD-10 - M79.675) 09/25/2023 Pain in left toe(s) (ICD-10 - M79.675) Plan Of Treatment Pending Test Test Name Order Date 28013-QDSYNTM NAIL, 6 OR MORE 02/04/2011 26703-PJPFWAS NAIL, 6 OR MORE 06/06/2011 30919-QFWDHUH NAIL, 6 OR MORE 09/05/2011 38675-TZWODUS NAIL, 6 OR MORE 12/05/2011 98057-HRLBKNF NAIL, 6 OR MORE 04/06/2012 51411-PQBIZFW NAIL, 6 OR MORE 07/06/2012 69061-MQKQGSL NAIL, 6 OR MORE 10/07/2012 72599-WIRMSZB NAIL, 6 OR MORE 01/11/2013 84054-UXCCLCC NAIL, 6 OR MORE 04/05/2013 60920-BFIUCMJ NAIL, 6 OR MORE 06/29/2014 51978-FCYVNXF NAIL, 6 OR MORE 04/03/2015 92841-RKKBOJA NAIL, 6 OR MORE 07/03/2015 06844-YCJPABH NAIL, 6 OR MORE 10/30/2015 60330-KDMUEFT NAIL, 6 OR MORE 09/28/2014 81805-UPZWQMQ NAIL, 6 OR MORE 02/26/2016 18442-FAWNEWR NAIL, 6 OR MORE 07/01/2016 27800-XXGXXMP NAIL, 6 OR MORE 10/03/2016 36672-NYFBTVF NAIL, 6 OR MORE 12/30/2016 77227-YUFDUWD NAIL, 6 OR MORE 04/02/2017 94383-BFGJVIO NAIL, 6 OR MORE 07/03/2017 01843-HJQZXSB NAIL, 6 OR MORE 10/02/2017 25349-ZBBITIG NAIL, 6 OR MORE 01/05/2018 60519-YHSNCXS NAIL, 6 OR MORE 04/10/2018 35686-OWVSBWQ NAIL, 6 OR MORE 07/09/2018 34852-XZXACBU NAIL, 6 OR MORE 10/08/2018 94322-VUIUFOM NAIL, 6 OR MORE 01/11/2019 05007-GMMBZIW NAIL, 6 OR MORE 04/15/2019 17833-KBDVXGE NAIL, 6 OR MORE 07/22/2019 40880-RUZJOQU NAIL, 6 OR MORE 10/14/2019 00363-RUMZSFK NAIL, 6 OR MORE 01/17/2020 76762-GABTLGG NAIL, 6 OR MORE 05/01/2020 64338-FXOYOOA NAIL, 6 OR MORE 11/02/2020 04872-KYXTBZW NAIL, 6 OR MORE 02/01/2021 37785-HSOMEFV NAIL, 6 OR MORE 05/09/2021 99401-LQMWUNL NAIL, 6 OR MORE 08/20/2021 15291-WZMLQZF NAIL, 6 OR MORE 05/16/2022 52825-YFPOCWY NAIL, 6 OR MORE 12/05/2022 60737-TDJPXYS NAIL, 6 OR MORE 01/17/2022 13465-ZYXFRGF NAIL, 6 OR MORE 03/20/2023 30133-JPLULNG NAIL, 6 OR MORE 09/25/2023 44524-BNGQCVE NAIL, 6 OR MORE 01/15/2024 59969-XIYQNFD NAIL, 6 OR MORE 06/26/2023 59817-GCINDBE NAIL, 6 OR MORE 04/20/2024 78485-WHOEHYF NAIL, 1-5 12/28/2014 98207-NKDRVZC NAIL, 1-5 04/07/2014 08802-Entg Destruction, -14 12/05/2011 87969-Jqyo Destruction, -14 06/06/2011 57892-Ebqi Destruction, -14 09/05/2011 28906-Mpqu Destruction, -14 02/04/2011 05922-Faopbrmy Plate 09/05/2011 81260-Votirpom Plate 07/08/2013 57122-Cbieklgo Plate 10/05/2013 21065-Nwgyvouo Plate 01/06/2014 40642-Sfbvgdnh Plate 04/07/2014 13426-Famobjlg Plate 09/28/2014 76760-Gjktenfg Plate 12/28/2014 70358-Bsixjxnn Plate 10/14/2019 11380-Irzdomdt Plate 07/09/2018 88828-Kbjvpgoo Plate 03/20/2023 68967-Adifeshx Plate Each Additional 90708-DGDO SKIN LESIONS, 2 TO 4 02/26/20 16 01780-NMMY SKIN LESIONS, 2 TO 4 12/31/19 17 42786-BKYT SKIN LESIONS, 2 TO 4 07/01/19 17 25373-QMSR SKIN LESIONS, 2 TO 4 10/04/19 17 85635-ZGJY SKIN LESIONS, 2 TO 4 10/30/19 16 89312-PKXU SKIN LESIONS, 2 TO 4 10/09/19 19 12409-IFDS SKIN LESIONS, 2 TO 4 01/12/20 19 99648-HYHP SKIN LESIONS, 2 TO 4 07/09/19 19 78438-YGYM SKIN LESIONS, 2 TO 4 04/10/20 18 99002-OHNU SKIN LESIONS, 2 TO 4 01/06/20 18 71150-AOOH SKIN LESIONS, 2 TO 4 10/03/19 18 96151-GFSP SKIN LESIONS, 2 TO 4 07/03/19 18 85358-MOKA SKIN LESIONS, 2 TO 4 04/02/20 17 59421-QGIC SKIN LESIONS, 2 TO 4 01/17/20 20 13635-HIFK SKIN LESIONS, 2 TO 4 10/14/19 20 26196-LMSO SKIN LESIONS, 2 TO 4 07/22/19 20 18474-ZEKL SKIN LESIONS, 2 TO 4 04/15/20 19 77570-PDVK SKIN LESIONS, 2 TO 4 05/09/20 10955-PGUS SKIN LESIONS, 2 TO 4 02/02/20 21 24969-DOWC SKIN LESIONS, 2 TO 4 11/03/19 24048-IBKY SKIN LESIONS, 2 TO 4 05/01/20 05639-KHJF SKIN LESIONS, 2 TO 4 09/25/19 24 46913-JKSJ SKIN LESIONS, 2 TO 4 01/15/20 24 18300-JVIR SKIN LESIONS, 2 TO 4 04/20/20 24 45583-RWIS SKIN LESIONS, 2 TO 4 06/26/19 30551-PHBP SKIN LESIONS, 2 TO 4 05/16/20 52264-TWKG SKIN LESIONS, 2 TO 4 12/06/19 23 37688-FPAW SKIN LESIONS, 2 TO 4 03/20/20 23 12486-RQUQ SKIN LESIONS, 2 TO 4 01/18/20 50511-VVBV SKIN LESIONS, 2 TO 4 08/21/19 Next Appt Details Provider Name:Carmita Costello , 07/26/2024 01:30:00 PM, [address] [place], [address], Insurance Providers Payer Name Payer Address Payer Phone Subscriber Number Group Number Insured Name Patient Relationship to Insured Coverage Start Date Coverage End Date [facility] [address] [place] [address] [id number] Elidia Sanders Self - patient is the insured Medical (General) History Medical History History ICD Code osteoporosis high blood pressure gall bladder problems depression cataracts Anxiety disorder diabetic Cholesterol type II diabetes Surgical History Surgery Date(Month/Year) cholecystectomy cataract surgery ou 2008 left wrist 04/2011 Lipoma 08/2017 Macular hole repair 06/2021 Hospitalization History Reason Date(Month/Year)
--- OUTSIDE RECORDS SUMMARY | 2024-07-20 14:01 | XMS_ITS ---
Author Organization [facility] Address [address] [address] Care Team Providers Care Under Seal Operator Name Role Phone Gregor SHULTZ, Mary Anne Primary Care Provider Evelyn Beal Unavailable [phone] REASON FOR VISIT ULTRA - FIBROIDS Encounters Encounter Location Date Provider Diagnosis [facility] [employer] [address] [address] 02/07/2023 Evelyn Vazquez Plan Of Treatment No Information Progress Notes * FARAZ AQUINOOB: [birth year] (78 yo F)Acc No.[id number]:02/07/2023 PROGRESS NOTES Patient:?ZAYNABJENNIFERLUTHER VALENTIN Appointment Provider:?Evelyn jimenez M.D. :1945???Age:77 Y???Sex:Female D ate:02/07/2023 Address:[address] [place], [place] [id number] Pcp:Mary Anne Bundy MD Subjective: * Chief Complaints: * ???1. ULTRA - FIBROIDS. * Medical History:? Objective: * Vitals:? Assessment: Plan: * Treatment: * Images: Billing Information: * Visit Code:? * Procedure Codes:? * Electronic signature of Jake Vazquez MD on 07/20/2024 at 02:00 PM EST Sign off status: Pending * Appointment Provider:?Evelyn Vazquez M.D. Date:?02/07/2023 Generated for Tory jeff/Keyonna/Kennethitting on:?07/20/2024 02:00 PM EST
--- OUTSIDE RECORDS SUMMARY | 2024-07-20 14:01 | XMS_ITS ---
Author Organization [facility] Address [address] [place] [id number] Care Team Providers Care Yarrow Gatherer Name Role Phone Mary Anne Bundy MD Primary Care Provider Unavaila Carmita Wolfe Unavailable [phone] REASON FOR VISIT Co-pay Encounters Encounter Location Date Provider Diagnosis [address] [address] 09/25/2023 Carmita Costello Plan Of Treatment Next Appt Details Provider Name:Carmita Estrada Pravin , 07/26/2024 01:30:00 PM, [address] [place] [address], [phone], Progress Notes * Elizabeth AQUINOOB: 945 (77 yo F)Acc No.[id number]:09/25/2023 Patient:?Elidia Aquino :1945???Age:77 Y???Sex:Female Address:[address] [place] [address], [phone] * true * Date:? Generated for Tory jeff/Keyonna/eTransmitting on:?07/20/2024 02:01 PM EST
--- OUTSIDE RECORDS SUMMARY | 2024-07-20 14:01 | XMS_ITS ---
Author Organization [facility] Address [address] [facility] [address] [place] [phone] Care Team Providers Care Refrigeration Person Name Role Phone Mary Anne Bundy MD Primary Care Provider Evelyn Beal Unavailable [phone] Allergies No Known Allergies Results Component Value Reference Range Notes Urinalysis Reviewed date:01/29/2024 03:37:31 PM Interpretation: Performing Lab: Notes/Report: PH 5.0 PROTEIN neg GLUCOSE neg BLOOD neg REASON FOR VISIT Annual CLAIM TAKER Physical, Annual CLAIM TAKER Physical 60-85+ Medications Medication SIG (Take, Route, Frequency, Duration) Notes Start Date End Date Status Hyoscyamine Sulfate 0.125 MG 1 tablet before meals as needed Orally 3 x a day Active Gabapentin 300 MG 1 capsule Orally Thr ee times a day Active Atorvastatin Calcium 20 MG 1 tablet Orally Once a day Active Omeprazole 20 MG 1 capsule Orally Onc e a day Active glipiZIDE 10 MG 1 tablet Orally Once a day Active Citalopram Hydrobromide 40 MG 1 tablet Orally Once a day Active Ozempic (2 MG/DOSE) 8 MG/3ML Subcutaneous for 84 Days Active Benazepril HCl 10 MG 1 tablet Orally Onc e a day Active Biotin 1000 MCG 1/2 tablet Orally On ce a day Takes 500mcg daily Active Probiotic Active Trulicity 1.5 MG/0.5ML as directed Subcutaneous Once a week Active Furosemide 20 MG Oral for 90 [...] Never (0 point) Points 1 Interpretation Negative Vital Signs Temperature 97.5 degrees Fahrenheit 01/29/20 24 Blood pressure systolic 110 mm Hg 01/29/20 24 Blood pressure diastolic 58 mm Hg 024 Height 62 in 01/29/2024 Weight 220 lbs 01/29/2024 BMI 40.23 kg/m2 01/29/2024 Encounters Encounter Location Date Provider Diagnosis [address] [address] 01/29/2024 Evelyn Vazquez Encounter for gynecological examination [...] AND THEIR BENIGN NATURE. Plan Of Treatment Treatment Notes Assessment Notes Encounter for gynecological examination (general) (routine) without abnormal findings NO MORE PAP TESTS. Encounter for screening mamm ogram for malignant neoplasm of breast REGULAR MAMMOGRAMS AND SBE'S WERE RECOMMENDED. Encounter for screening for osteoporosis DISCUSSED HER LAST BMD RESULTS DONE IN 2020. RECOMMENDED REPEAT BMD NEXT YEAR. Leiomyoma of uterus, unspecified DISCUSS ED FIBROIDS AND THEIR BENIGN NATURE. Pending Test Test Name Order Date MAMMOGRAM, SCREENING 01/29/2024 BONE DENSITY 01/29/2024 MM Digital Mammo Screening 01/29/2024 Next Appt Details Follow Up: 2 YEARS OR Fran ZUNIGA: Progress Notes * FARAZ AQUINOOB: 945 (78 yo F)Acc No.[id number]:01/29/2024 PROGRESS NOTES Patient:?VALENTIN AQUINO Appointment Provider:?Evelyn jimenez M.D. :1945???Age:78 Y???Sex:Female D ate:01/29/2024 Address:[address] [place], [place] [id number] Pcp:Mary Anne Bundy MD Subjective: * Chief Complaints: * ???Annual CLAIM TAKER PhysicalAnnual CLAIM TAKER Physical 60-85+ * HPI: ???New/Follow-up Patient Consult:? 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 SHE ENTERED MENOPAUSE IN HER 50'S.? SHE HAS BEEN WITH THE SAME PARTNER FOR 9 YEARS AND THEY ARE NOT SEXUALLY ACTIVE. SHE IS KNOWN TO HAVE FIBROIDS.? HER PELVIC ULTRASOUNDS IN 2017 AND 2022 SHOWED CONFIRMED THAT. HER LAST MAMMOGRAM DONE IN AUGUST 2023 SHOWED BREASTS ARE NOT DENSE AND WAS NORMAL. HER LAST PAP TEST IN 2015 WAS NEGATIVE AND HPV NEGATIVE. HER LAST BMD IN 2020 WAS NORMAL. SHE HAD A COLONOSCOPY DONE IN 2012.? SHE WILL GET ANOTHER ONE THIS YEAR.? SHE WAS REFERRED TO [facility]. [facility] X 4. ???Annual:? Patient presents for annual exam, ages 60-85, postmenopausal. ?General Health Maintenance:?Current breast complaints:?no breast pain, mass, discharge, or skin changes ?Urinary problems:?patient reports no urinary health problems or bowel health problems ?Calcium intake:?takes adequate calcium via diet and supplementation ?Significant CLAIM TAKER problems:?no significant electrode turner and finisher symptoms or problems * ROS:?general:?no?chest pain.?no?palpitations.?no?headache.?no?cough.?no?shortness of breath.?no?fever.?no?unexplained weight loss.?no?nausea/vomiting.?no?change in bowel movements.?no blood in stool.?no?genitourinary complaints.?no?skin complaints.? * Medical History:? 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 Bundy.?LMP and menses?Akte.? Control:?None.?Colonoscopy?2012.?Bone Density:?07/06/20, 05/20/17, 10-15 years ago.? * OB History:?Total pregnancies?1.?Total living children?0.?Miscarriage(s)?1.? * Surgical History:?Carpal Yusef santy Surgery Cataracts Surgery Cholecystectomy Colonoscopy * Hospitalization/Major Diagno stic Procedure:?See Surgical Hx * Family History:?Mother: dece ased 100 yrs, Alzhiermers Disease, Osteoporosis, diagnosed with Unspecified essential hypertension.?Father: , diagnosed with Diabetes mellitus without mention of complication, type II or unspecified type, not stated as uncontrolled, Unspecified essential hypertension, Unspecified heart disease.? Sister recently . * Social History:?Tobacco Use:?Tobacco Use/Smoking?Are you a?former smoker ?How long has it been since you last smoked??1-5 years ???Sexual History:?Sexual History?Had sex in the past 12 months (vaginal, oral, or anal)?: Yes, with: Men only, Prevention strategies discussed:: Other.?Details of Sexual History?Are you sexually active??Yes ???Drugs/Alcohol:?Drugs?Have you used drugs other than those for medical reasons in the past 12 months??No ?Alcohol Screen (Audit-C)?Did you have a drink containing alcohol in the past year??Yes ?How often did you have a drink containing alcohol in the past year??Monthly or less (1 point) ?How many drinks did you have on a typical day when you were drinking in the past year??1 or 2 drinks (0 point) ?How often did you have 6 or more drinks on one occasion in the past year??Never (0 point) ?Points?1 ?Interpretation?Negative ???Miscellaneous:?Children: no. ?Domestic violence: no. ?Home smoke detector use: yes. ?Living with: alone. ?Marital status: single. ?Natural support system: yes. ?Occupation: Retired. ?Sexual abuse: no. ?Sexually active: yes. ?Verbal abuse: no. * Medications:?TakingCitalopra m Hydrobromide 40 MG Tablet 1 tablet Orally Once a day Hyoscyamine Sulfate 0.125 MG Tablet 1 tablet before meals as needed Orally 3 x a day Atorvastatin Calcium 20 MG Tablet 1 tablet Orally Once a day Gabapentin 300 MG Capsule 1 capsule Orally Three times a day glipiZIDE 10 MG Tablet 1 tablet Orally Once a day Omeprazole 20 MG Capsule Delayed Release 1 capsule Orally Once a day Biotin 1000 MCG Tablet 1/2 tablet Orally Once a day , Notes to Pharmacist: Takes 500mcg dailyTrulicity 1.5 MG/0.5ML Solution Pen-injector as directed Subcutaneous Once a week Probiotic Furosemide 20 MG Tablet Oral Benazepril HCl 10 MG Tablet 1 tablet Orally Once a day Ozempic (2 MG/DOSE) 8 MG/3ML Solution Pen-injector Subcutaneous Taking Citalopram Hydrobromide 40 MG Tablet 1 tablet Orally Once a day Taking Hyoscyamine Sulfate 0.125 MG Tablet 1 tablet before meals as needed Orally 3 x a day Taking Atorvastatin Calcium 20 MG Tablet 1 tablet Orally Once a day Taking Gabapentin 300 MG Capsule 1 capsule Orally Three times a day Taking glipiZIDE 10 MG Tablet 1 tablet Orally Once a day Taking Omeprazole 20 MG Capsule Delayed Release 1 capsule Orally Once a day Taking Biotin 1000 MCG Tablet 1/2 tablet Orally Once a day , Notes to Pharmacist: Takes 500mcg dailyTaking Trulicity 1.5 MG/0.5ML Solution Pen-injector as directed Subcutaneous Once a week Taking Probiotic Taking Furosemide 20 MG Tablet Oral Taking Benazepril HCl 10 MG Tablet 1 tablet Orally Once a day Taking Ozempic (2 MG/DOSE) 8 MG/3ML Solution Pen-injector Subcutaneous DiscontinuedoxyCODONE-Acetaminophen 5-325 MG Tablet 1 tablet as needed Orally every 6 hrs , Notes to Pharmacist: Rare, Only as neededhydroCHLOROthiazide 25 MG Tablet 1 tablet Orally Once a day Medication List reviewed and reconciled with the patientDiscontinued oxyCODONE-Acetaminophen 5-325 MG Tablet 1 tablet as needed Orally every 6 hrs , Notes to Pharmacist: Rare, Only as neededDiscontinued hydroCHLOROthiazide 25 MG Tablet 1 tablet Orally Once a day Medication List reviewed and reconciled with the patient * Allergies:?N.K.D.A.no[Allerg ies Verified] Objective: * Vitals:?Ht: 62 in, Wt: 220 l bs, BMI:40.23Index, BP: 110/58 mm Hg, Temp: 97.5 F. * Examination: ???General Exam: ?CONSTITUTIONAL:?NECK/THYROID:?RESPIRATORY:?Auscultation: clear to auscultation bilaterally, Respiratory Effort: normal.?CARDIOVASCULAR:?Auscultation: regular rate and rhythm.?BREAST, Right:?BREAST, Left:?GASTROINTESTINAL:?MUSCULOSKELETAL:?SKIN:?NEURO/PSYCH:?Genitourinary: ?EXTERNAL GENITALIA:?VAGINA:?BLADDER:?URETHRA:?CERVIX:?UTERUS:?ADNEXA:?ANUS AND PERINEUM:? Assessment: * Assessment: 1.?Encounter for gynecologic al examination (general) (routine) without abnormal findings - Z01.419???2.?Encounter for screening mammogram for malignant neoplasm of breast - Z12.31???3.?Encounter for screening for osteoporosis - Z13.820???4.?Leiomyoma of uterus, unspecified - D25.9??? Plan: * Treatment: ? Value Reference Range ?PH 5.0 * ?PROTEIN neg * ?GLUCOSE neg * ?BLOOD neg Notes: NO MORE PAP TESTS.??2.?Encounter for screening mammogram for malignant neoplasm of breast?Imaging: MM Digital Mammo Screening Notes: REGULAR MAMMOGRAMS AND SBE'S WERE RECOMMENDED.??3.?Encounter for screening for osteoporosis?Imaging: BONE DENSITY* SCREENING AND PATIENT IS POS T MENOPAUSAL Z78.0 Notes: DISCUSSED HER LAST BMD RESULTS DONE IN 2020. RECOMMENDED REPEAT BMD NEXT YEAR.??4.?Leiomyoma of uterus, unspecified? Notes: DISCUSSED FIBROIDS AND THEIR BENIGN NATURE.?? * Imaging:? * ?Imaging: MAMMOGRAM, SCR EENING * Procedure Codes:? * Preventive Medicine:? ??YOUR PREVENTIVE WELLNESS PLAN:?Osteoporosis prevention?Calcium, D, strength training.?Breast Cancer Screening (Mammogram):?annually.?Cervical Cancer Screening (Pap Smear):?q 3 years with HPV screen.?Colorectal Cancer Screening:?q 10 years.? * Follow Up:?2 YEARS OR PRN * Images: Billing Information: * Visit Code:? 95128 Preventive Care Est Pt. Age 65 and over. * Procedure Codes:? * Sign off status: Completed true * Appointment Provider:?Evelyn Vazquez M.D. 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 SHE HAS BEEN WITH THE SAME PARTNER FOR 9 YEARS AND THEY ARE NOT SEXUALLY ACTIVE. SHE IS KNOWN TO HAVE FIBROIDS. HER PELVIC ULTRASOUNDS IN 2017 AND 2022 SHOWED CONFIRMED THAT. HER LAST MAMMOGRAM DONE IN AUGUST 2023 SHOWED BREASTS ARE NOT DENSE AND WAS NORMAL. HER LAST PAP TEST IN 2015 WAS NEGATIVE AND HPV NEGATIVE. HER LAST BMD IN 2020 WAS NORMAL. SHE HAD A COLONOSCOPY DONE IN 2012. SHE WILL GET ANOTHER ONE THIS YEAR. SHE WAS REFERRED TO [facility]. Annual General Health Maintenance: Current breast complaints:: no breast pain, mass, discharge, or skin changes Urinary problems:: patient r eports no urinary health problems or bowel health problems Calcium intake:: takes adequ ate calcium via diet and supplementation Significant CLAIM TAKER problems:: n o significant electrode turner and finisher symptoms or problems Examination Category Sub-Category Detail Notes Category Not es General Exam CONSTITUTIONAL: General Appearan ce:: alert, in no acute distress, normal, well nourished NECK/THYROID: Thyroid:: normal size and shape Inspection/Palpation:: normal RESPIRATORY: Auscultation: clear to auscultation bilaterally, Respiratory Effort: normal CARDIOVASCULAR: Auscultation: regula r rate and rhythm GASTROINTESTINAL: Hernias:: no hernias present, no inguinal adenopathy Liver and Spleen:: normal Abdomen:: no masses, nontender, nondiste nded MUSCULOSKELETAL: Inspection/Palpation:: no clubb ing, cyanosis, or edema SKIN: Skin:: normal NEURO/PSYCH: Mood/Affect:: normal Orientation:: time , place, person BREAST, Right: Inspection/Palpation :: no discharge, no masses present, no nipple retraction, no skin changes, no skin dimpling, no tenderness, no lymphadenopathy, no axillary mass, no axillary tenderness BREAST, Left: Inspection/Palpation :: no discharge, no masses present, no nipple retraction, no skin changes, no skin dimpling, no tenderness, no lymphadenopathy, no axillary mass, no axillary tenderness Genitourinary EXTERNAL GENITALIA: External Genitalia:: nor mal, no lesions VAGINA: Vagina:: normal appe arance, no abnormal discharge, no lesions BLADDER: Bladder:: no mass, nontender URETHRA: Urethra:: no erythem a or lesions present CERVIX: Cervix:: no lesions, nontender UTERUS: Uterus:: UTERUS IS IRREGU LARLY ENLARGED TO 10 WEEKS, NONTENDER ADNEXA: Adnexa:: no masses, no tendernes s ANUS AND PERINEUM: Anus/Perineum:: visually norm al
== END 2024-07-20 11:25 | disposition home or self-care (01) ==
LOC: HO.HMGCLDS 11:24
PROVIDERS: PCP Internal Medicine; Visit Provider Internal Medicine
DX: E11.9 Type 2 diabetes mellitus without complications (principal); I10 Essential (primary) hypertension; E78.5 Hyperlipidemia, unspecified
CPT/HCPCS: 36415; 80053; 80061; 82043; 82570; 83036; 85025

== ENCOUNTER 2024-07-23 10:02 | Outpatient (AMB) | payer OTHER, SELFPAY ==
[2024-07-23 10:04] VITALS: BP 102/58; PULSE 66; RESP 18; TEMP 36.5; O2SAT 96; BMI 36.6
--- NOTE | 2024-07-23 10:04 | MHC.PC.OV ---
Vital Signs 07/23/24 10:04 Height 5 ft 2 in Weight 200 lb BMI 36.6 BP 102/58 L Blood Pressure Location Lt brachial Position Sitting Respiration 18 Pulse 66 Pulse Source Pulse Oximeter Temp 97.7 F Temp Source Oral Pulse Oximetry (%) 96 Oxygen Delivery Method Room Air Intake Visit Reasons: 4m follow up Intake Note: Pt is here today for 4 months follow up visit on labs. Allergies linagliptin [Tradjenta] Adverse Reaction (Unknown, Verified 07/23/24 10:05) yeast infection metformin Adverse Reaction (Unknown, Verified 07/23/24 10:05) diarrhea Medication List - Last Reconciled 07/23/24 by Mary Anne Bundy MD atorvastatin 20 mg PO DAILY citalopram 10 mg PO DAILY furosemide (Lasix) 20 mg PO DAILY gabapentin 300 mg PO BID glipizide ER 5 mg PO DAILY hyoscyamine sulfate ER 0.375 mg PO BID ketoconazole 2% 1 appl topical BID PRN multivitamin 1 tab PO DAILY [nutrafol 1 cap 5 times a day for hair ] olmesartan 20 mg PO DAILY omeprazole 20 mg PO QAM Ozempic (semaglutide) 2 mg (0.75 mL) subcut QWEEK NS triamcinolone acetonide 0.1% 1 appl topical BID PRN Tobacco use date assessed: 07/23/24 Fall risk assessment: No Falls in past year Last assessed Fall Risk: 07/23/24 Dental Screening Dental Screen Date: 07/23/24 Did you have a dental visit in the last 12 months?: Yes Did you have a dental problem in the last 6 months where you did not have access to dental care?: No Was dental information given to patient?: Patient has dentist HPI 4m follow up HPI Details Pt presents for f/u DM 2, HTN, anxiety, hyperlipid, stable on meds PFSH Medical History Macular hole of right eye IBS (irritable bowel syndrome) COPD (chronic obstructive pulmonary disease) Spinal stenosis Degenerative joint disease (DJD) of lumbar spine Overweight Type 2 diabetes mellitus Hyperlipidemia HTN (hypertension) Surgical History H/O colonoscopy Hx of cholecystectomy Family History Mother No problems noted. Father Diabetes Heart problem Substance use disorder Sister No problems noted. Social History Housing: House Alcohol intake: never Patient Tobacco Use Status: Former Tobacco user (5years ago) e-Cigarette/Vaping Use: Never Used service: No Current occupational status: retired Cognitive needs: No Hearing needs: No Vision needs: No Questionnaire PHQ-9 Over the last 2 weeks, how often have you been bothered by any of the following problems? 1. Little interest or pleasure in doing things: not at all 2. Feeling down, depressed, or hopeless: not at all 3. Trouble falling or staying asleep, or sleeping too much: not at all 4. Feeling tired or having little energy: not at all 5. Poor appetite or overeating: not at all 6. Feeling bad about yourself - or that you are a failure or have let yourself or your family down: not at all 7. Trouble concentrating on things, such as reading the newspaper or watching television: not at all 8. Moving or speaking so slowly that other people could have noticed. Or the opposite - being so fidgety or restless that you have been moving around a lot more than usual: not at all 9. Thoughts that you would be better off or of hurting yourself in some way: not at all Total score: 0 Depression Screening Interpretation: Negative Depression Screening Done: Yes 43802 - PHQ-9 Billing: Yes Source: Developed by Drs. Jean Delaney, Ammy Yoo, Michael Faustin and colleagues, with an educational xochilt from [employer]. Thrive Questionnaire Date Thrive assessed: 07/23/24 I am a: Patient What is your living situation today?: I have a steady place to live Within the past 12 months, did the food you bought not last and you didn't have the money to get more?: Never true Do you have trouble paying for medicines?: No Do you have trouble getting transportation to medical appointments?: No Do you have trouble paying your heating and electricity bill?: No Do you have trouble taking care of your child, family member or friend?: No Do you have trouble with day-to-day activities such as bathing, preparing meals, shopping, managing finances, etc.?: No Are you currently unemployed and looking for a job?: No Are you interested in more education?: No Please select the resources that you would like help with: None Currently or been in a relationship where the following occur: No concerns reported THRIVE Score: 0 AUDIT C Alcohol Use Questionnaire (AUDIT-C) 1. How often do you have a drink containing alcohol?: Monthly or less 2. How many drinks containing alcohol do you have on a typical day when you are drinking?: 1 or 2 3. How often do you have six or more drinks on one occasion?: Never Total Score: 1 LISS-7 AMB Questionnaire LISS-7 Date LISS - 7 assessed: 07/23/24 Feeling nervous, anxious, or on edge: 0 = Not at all Not being able to stop or control worryin = Not at all Worrying too much about different things: 0 = Not at all Trouble relaxin = Not at all Being so restless that it is hard to sit still: 0 = Not at all Becoming easily annoyed or irritable: 0 = Not at all Feeling afraid as if something awful might happen: 0 = Not at all Total LISS-7 score (0-4 normal; 5-9 mild; 10-14 moderate; 15-21 severe): 0 Source: Developed by Drs. Jean Delaney, Ammy Yoo, Michael Faustin and colleagues, with an educational xochilt from [employer]. LISS-7 Assessment Billing LISS-7 Assessment Tool: LISS-7 Assessment 49168 Review of Systems Const All systems reviewed & are unremarkable except as noted in HPI and below Eyes Reports no additional complaints ENT Reports no additional complaints Card Reports no additional complaints Resp Reports no additional complaints GI Reports no additional complaints Reports no additional complaints Physical exam (Primary Care) Vital Signs: Last Vital Signs Temp 97.7 F 07/23/24 10:04 Pulse 66 07/23/24 10:04 Resp 18 07/23/24 10:04 BP 102/58 L 07/23/24 10:04 Pulse Ox 96 07/23/24 10:04 Oxygen Delivery Method Room Air 07/23/24 10:04 BMI result Body Mass Index 36.6 Tobacco/Smoking Status: Tobacco use Status Tobacco use date assessed 07/23/24 07/23/24 10:06 Patient Tobacco Use Status Former Tobacco user (5years 07/23/24 10:06 ago) e-Cigarette/Vaping Use Never Used 07/23/24 10:06 PHQ-9: PHQ-9 Score PHQ-9: Total score 0 07/23/24 10:06 Depression Screening Interpretation: Negative Thrive Assessment: Date of Thrive Assessment Date Thrive assessed 07/23/24 07/23/24 10:06 Currently or been in a relationship where the following occur: No concerns reported Const General: no acute distress HENMT Head: Yes normal to inspection Mouth: Normal oral and palatal mucosa present Eyes General: appearance normal, both eyes and all related structures Neck Neck: Yes supple Resp Effort & Inspection: normal respiratory effort Auscultation: clear to auscultation bilaterally Cardio Rhythm: regular rhythm Heart sounds: S1 normal heart sound present and S2 normal heart sound present GI Inspection: Yes normal to inspection Palpation (GI): Soft to palpation Percussion: Yes normal to percussion Auscultation: normal bowel sounds Coding Level of Care Code Est Pt Level 4 (56682) Diagnoses HTN (hypertension) I10 Hyperlipidemia E78.5 Type 2 diabetes mellitus E11.9 Additional Codes LISS-7 Assessment Billing - LISS-7 Assessment Tool: LISS-7 Assessment 67628 ([id number]) PHQ-9 - 38361 - PHQ-9 Billing: Yes ([id number]) Assessment & Plan Assessment & Plan (1) HTN (hypertension): Code(s): I10 - Essential (primary) hypertension Category: Medical Plan: Continue olmesartan (2) Hyperlipidemia: Code(s): E78.5 - Hyperlipidemia, unspecified Category: Medical Plan: Continue statin (3) Type 2 diabetes mellitus: Code(s): E11.9 - Type 2 diabetes mellitus without complications Category: Medical Plan: A1c is 5.6%, patient has not been monitoring her blood glucose. She lost 20 lb since starting Ozempic. Glipizide will be decreased to a half a tablet and patient will return in 4 months with a fasting labs before. ADA diet regular physical activity discussed with the patient Orders: Orders Hemoglobin A1c 4 Months E11.9 - Type 2 diabetes mellitus without complications, E78.5 - Hyperlipidemia, unspecified, I10 - Essential (primary) hypertension Comprehensive [place]. Panel Fast 4 Months E11.9 - Type 2 diabetes mellitus without complications, E78.5 - Hyperlipidemia, unspecified, I10 - Essential (primary) hypertension Lipid Panel 4 Months E11.9 - Type 2 diabetes mellitus without complications, E78.5 - Hyperlipidemia, unspecified, I10 - Essential (primary) hypertension Microalbumin, Random (w Creat) 4 Months E11.9 - Type 2 diabetes mellitus without complications, E78.5 - Hyperlipidemia, unspecified, I10 - Essential (primary) hypertension Medications: Changed From glipizide ER 5 mg PO DAILY 90 tabs 3RF To glipizide ER 2.5 orally daily; 90 tabs 3RF Discontinued hyoscyamine sulfate ER Discontinued Reason: Doctor's Order 0.375 mg PO BID 180 tabs 3RF K58.9 - Irritable bowel syndrome, unspecified
--- OUTSIDE RECORDS SUMMARY | 2024-07-23 11:06 | XMS_ITS ---
Author Organization [facility] Address [address] [place] [address] Care Team Providers Care Applications Systems Engineer Name Role Phone Mary Anne Bundy MD Primary Care Provider Unavaila Carmita Wolfe Unavailable [phone] Allergies No Known Allergies REASON FOR VISIT [...] Ordered Date Performed Result Body Sit e 28253-YPTNLRT NAIL, 6 OR MORE 01/15/2024 N/A 72365-ASSO SKIN LESIONS, 2 TO 4 01/15/2024 N/A Encounters Encounter Location Date Provider Diagnosis [facility] [address] [address] 01/15/2024 Carmita Costello Tinea unguium B35.1 ; [...] Treatment Pending Test Test Name Order Date 49440-KCAVPSE NAIL, 6 OR MORE 01/15/2024 42027-IXJD SKIN LESIONS, 2 TO 4 01/15/20 24 Next Appt Details Follow Up: prn, Reason: Provider Name:Carmita Costello , 07/26/2024 01:30:00 PM, [address] [place] [address], [phone], Procedure Notes * Category Sub-Category Detail Notes [...] as necessary. Patient chooses, Formula 7, tx (47855) Keratoma Treatment Parring or Cutting o f Benign Hyperkeratotic Lesion(s) 59358 (2-4 Lesions) - The Benign hyperkeratotic lesions, as described above were pared, and/or cut utilizing a sterile #15 blade, tissue nippers, and/or dremel Progress Notes * Elizabeth AQUINOOB: 945 (78 yo F)Acc No.[id number]:01/15/2024 Progress Note Patient:?Elidia Aquino Provider:?Carmita Costello DPM :1945???Age:78 Y???Sex:Female D ate:01/15/2024 Address:[address] [place], [place] [address] Pcp:Mary Anne Bundy MD Subjective: * Chief [...] 6.5 * Examination: ???Ophthalmology Referral: ?DIABETES EYE EXAM?Diabetic Retinopathy Screening:?Yes ?Findings of Diabetic Eye Exam:?no retinopathy?Neurological: ?SENSORY:?Neurological exam reveals intact sensorium, pain sensation [...] - M79.675? Plan: * Treatment: 2.?Tinea unguium?Procedure: 26462-FWKRFZD NAIL, 6 OR MORE * Procedures:?Debride Nail 6-10:?Nail debridement?Nail debridement performed extensively to reduce/remove overall nail length and girth, subungual debris, and necrotic tissue, by manual and electrical means with use of a nail nipper and/or dremel, to more viable healthy nail plate or bed tissue 6-10. Silver nitrate used for any petechial bleeding as necessary. Patient chooses, Formula 7, tx (51589).?Keratoma Treatment:?Parring or Cutting of Benign Hyperkeratotic Lesion(s)?08201 (2-4 Lesions) - The Benign hyperkeratotic lesions, as described above were pared, and/or cut utilizing a sterile #15 blade, tissue nippers, and/or dremel.? * Procedure Codes:?56818 DEBRI DE NAIL, 6 OR MORE, Modifiers: XS 21724 TRIM SKIN LESIONS, 2 TO 4, Modifiers: XS * Follow Up:?prn * Images: * Sign off status: Completed true * Provider:Reji Costello DPM Date:?2023 Generated for Aparnai randee/Keyonna/eTransmitting on:?07/23/2024 11:05 AM EST History and Physical Notes * HPI [...]
--- OUTSIDE RECORDS SUMMARY | 2024-07-23 11:06 | XMS_ITS ---
Author Organization [facility] Address [address] [address] Care Team Providers Care Cross Roller Name Role Phone Gregor SHULTZ, Mary Anne Primary Care Provider Evelyn Beal Unavailable [phone] REASON FOR VISIT ULTRA - FIBROIDS Encounters Encounter Location Date Provider Diagnosis [facility] [address] [address] 02/14/2023 Evelyn Vazquez Plan Of Treatment No Information Progress Notes * FARAZ AQUINOOB: 945 (78 yo F)Acc No.[id number]:02/14/2023 PROGRESS NOTES Patient:?ZAYNABDESHAUN VALENTIN Appointment Provider:?Evelyn jimenez M.D. :1945???Age:77 Y???Sex:Female D ate:02/14/2023 Address:[address] [place], [place] [id number] Pcp:Mary Anne Bundy MD Subjective: * Chief Complaints: * ???1. ULTRA - FIBROIDS. * Medical History:? Objective: * Vitals:? Assessment: Plan: * Treatment: * Images: Billing Information: * Visit Code:? * Procedure Codes:? * Electronic signature of Jake Vazquez MD on 07/23/2024 at 11:06 AM EST Sign off status: Pending * Appointment Provider:?Evelyn Vazquez M.D. Date:?02/14/2023 Generated for Tory jeff/Keyonna/Kennethitting on:?07/23/2024 11:06 AM EST
--- OUTSIDE RECORDS SUMMARY | 2024-07-23 11:06 | XMS_ITS | Encounter Summary ---
Author Organization [facility] Address [address] [place] [address] Care Team Providers Care Cafe Team Member Name Role Phone Mary Anne Bundy MD Primary Care Provider [phone] Encounter Details Date Type Department Care Team (Late st Contact Info) Description 05/03/2024 Lab Requisition [facility] [address] [facility] [place] [address] Jordi Marcial MD [address] [address] Encounter for screening for malignant neoplasm of [...] - Tubular adenoma. 05/04/2024 11:08 AM EST [facility] Clinical Information Screening for malignant neoplasm in the colon Polyp 05/04/2024 11:[address] [facility] Gross Description A. Large Intestine, Sigmoid Colon, polyp biopsy: Labeled sigmoid colon polyp biopsy . Received in formalin is a 0.3 cm irregular vieira-pink mucosal tissue fragment which is wrapped in paper and submitted in total in one cassette, one piece, multiple levels on one slide. MAGDA 05/04/2024 11:[address] [facility] Disclaimer Unless otherwise specified, all tissue is 10% NB formalin fixed and paraffin embedded. 05/04/2024 11:[address] [facility] Tissue Sigmoid colon structure / Unknown 05/03/2024 05/03/2024 2:45 PM EST Jordi Marcial MD LAB PATHOLOGY ORDERABLES Final Result [facility] [address] [place] [address], documented in this encounter Visit Diagnoses Diagnosis Encounter for screening for malignant neoplasm of colon documented in this encounter Care Teams Cafe Team Member Relationship Specialty Start Date End Date Mary Anne Bundy MD PCP - General Internal Medicine 04/05/24 documented as of this encounter
--- OUTSIDE RECORDS SUMMARY | 2024-07-23 11:06 | XMS_ITS | Data Portability ---
Author Organization [place] [facility] Address [address] [place] [address] Care Team Providers Care Nuclear Pharmacist Name Role Phone PIERCE MYLES Primary Care Provider [phone] Assessment Encounter Date Assessment Date Assessment LastModified [...] Sensorine ural hearing loss of bilateral ears 929333030 Active 2015 Sensorine ural hearing loss, bilateral ; Note: Date Diagnosed : 6 3:23 PM (H90.3) Not Available [facility] 4 02:47:18 Posterior rhinorrhe a 62006258 Active 2017 Postnasal drip; Note: Date Diagnosed : 08/06/2017 3:00 PM (R09.82) Not Available [facility] 4 02:47:18 Bilateral disorder of Eustachia n tubes 17162003335 98794 Active 2022 Other specified disorders of Eustachia n tube, bilateral ; Note: Date Diagnosed : 04/29/2023 1:38 PM (H69.83) Not Available [facility] 4 02:47:11 Impacted cerumen in right ear 03999172496 49611 Active 2015 Impacted cerumen, right ear; Note: Date Diagnosed : 6 3:18 PM (H61.21) Not Available [facility] 4 02:47:17 Impacted cerumen of bilateral ears 35375954402 26172 Active 2017 Impacted cerumen, bilateral ; Note: Date Diagnosed : 08/06/2017 3:00 PM (H61.23) Not Available [facility] 4 02:47:17 Impacted cerumen 42396222 Active 2014 Impacted cerumen; CMS Risk: low risk CMS Treatment : new problem (to examiner) : no additiona l workup planned Not Available [facility] 4 02:47:13 Impacted cerumen in left ear 76462614408 14567 Active 2016 Impacted cerumen, left ear; Note: Date Diagnosed : 01/29/2017 1:53 PM (H61.22) Not Available [facility] 4 02:47:18 Problem Notes None recorded. Procedures Surgical History Date Name Laterality Status Provider Name and Address Organization Details Recorded Time 4 Cerumen removal without microscope bilat completed DAVID SIFUENTES PA-C [address] [place] [address], [phone] - [facility] 03/05/2024 14:25:57 Imaging Results None recorded. Procedure [...] mg tablet 02/12 completed Medicati on ID: 71408 Du ration Value: 90 Brand Name: citalopr [...] mg tablet 03/01 completed Medicati on ID: 78744 Du ration Value: 15 Brand Name: oxycodon [...] mg tablet 03/01 completed Medicati on ID: 18294 Du ration Value: 90 Brand Name: simvasta [...] mg tablet 03/01 completed Medicati on ID: 82853 Du ration Value: 90 Brand Name: benazepr il Send Method: E-Prescr ibed Sub s Allowed: subs OK Medic ationGen ericName : benazepr il Not Available Not Available Not Available ketoconaz ole 2 % topical cream 03/05 completed Medicati on ID: 672291 D uration Value: 7 Brand Name: ketocona zole Sen d Method: E-Prescr ibed Sub s Allowed: subs OK Medic ationGen ericName : ketocona zole Not Available Not Available Not Available ipratropi um bromide 21 mcg (0.03 %) nasal spray 2 spray into both nostrils 03/01 completed Medicati on ID: 865381 Lisa dumont By Name: CECILIA Espinoza nd [...] 24 hr 03/01 completed Medicati on ID: 405672 D uration Value: 30 Brand Name: metformi [...] History Nothing Reported. Medical History Condition Response Diabetes Y Anxiety Y Hypertension Y Depression Y High Cholesterol Y Gynecological HistoryNo gynecological history recorded. Obstetrics History GPAL:G 0 P 0 0 0 0 Past Encounters Encounter ID Performer Location Encounter Start Date Encounter Closed Date Diagnosis/Indication Diagnosis SNOMED-CT Code Diagnosis ICD10 Code Diagnosis Note [id number] DENNIS BECKETT MD [facility] [address] [address] 03/05/2024 14:04:57 03/05/2024 14:24:05 Impacted cerumen of bilateral ears [id number] 527997 H61.23 Health Concerns Section Related Observation LastModified by Organization Detai ls LastModified Time None Recorded Concern Status LastModified by Organization Details LastModified Time None Recorded Advance Directives Directive None Recorded Payers Encounter Date Sequence Insurance Name Policy Number Policy Yousif Covered Member ID Yousif Member ID Guarantor Name 03/05/[address] [place] [address] [id number] Elidia Pratibha [id number] Elidia Pratibha Notes Date Note Type Note Provider Name and Address Organization Details Recorded Time 03/05/2024 text/html 78 year old adiel ahmilton presents for ear cleaning. She denies otalgia or otorrhea. She admits to some hearing loss but is not interested in amplification or repeat testing today. Denies tinnitus and vertigo. DENNIS BECKETT MD [address] [place] [address], [phone], [facility] - [facility] 03/05/2024 15:28:48 OBGyn Episode No OBEpisode recorded.
--- OUTSIDE RECORDS SUMMARY | 2024-07-23 11:06 | XMS_ITS | Patient Health Record ---
Author Organization [employer] [facility] Address [address] [address] Care Team Providers Care Process Area Supervisor Name Role Phone Mary Anne Bundy MD Primary Care Provider Evelyn Beal Unavailable [phone] Allergies No Known Allergies Results Component Value [...] Status Risk Notes Problem Postmenopausal atrophic vaginitis (72595895) 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) Active confirmed Problem Morbid obesity (disorder) (733224314) Morbid (severe) obesity due to excess calories (E66.01) Active confirmed Vital Signs Temperature 97.5 degrees Fahrenheit 01/29/2024 Blood pressure diastolic 58 mm Hg 01/29/2024 Height 62 in 01/29/2024 Blood pressure systolic 110 mm Hg 01/29/2024 Weight 220 lbs 01/29/2024 BMI 40.23 kg/m2 01/29/2024 Encounters Encounter Location Date Provider Diagnosis [address] [address] 01/29/2024 Evelyn Vazquez Encounter for gynecological examination [...] MAMMOGRAM, SCREENING 01/23/2023 MAMMOGRAM, SCREENING 01/29/2024 Urinalysis 03/18/2017 Urinalysis 03/24/2019 Urinalysis 04/05/2020 BONE DENSITY 04/05/2020 BONE DENSITY 01/29/2024 MM Digital Mammo Screening 08/08/2021 MM Digital Mammo Screening 01/29/2024 MM Digital Mammo Screening 01/23/2023 Insurance Providers Payer Name Payer Address Payer Phone Subscriber Number Group Number Insured Name Patient Relationship to Insured Coverage Start Date Coverage End Date [facility] [address] [place] [address] [id number] VALENTIN ESTRADA Self - patient is the [...]
--- OUTSIDE RECORDS SUMMARY | 2024-07-23 11:06 | XMS_ITS ---
Author Organization [facility] Address [address] [place] [address] Care Team Providers Care Balling Head Tender Name Role Phone Mary Anne Bundy MD Primary Care Provider Unavaila Carmita Wolfe Unavailable [phone] Allergies No Known Allergies REASON FOR VISIT [...] Ordered Date Performed Result Body Sit e 63899-WBQTZNK NAIL, 6 OR MORE 04/20/2024 N/A 89444-AIKY SKIN LESIONS, 2 TO 4 04/20/2024 N/A Encounters Encounter Location Date Provider Diagnosis [facility] [address] 04/20/2024 Carmita Costello Tinea unguium B35.1 ; [...] Treatment Pending Test Test Name Order Date 19763-QZPJMUD NAIL, 6 OR MORE 04/20/2024 62563-BRVU SKIN LESIONS, 2 TO 4 04/20/20 24 Next Appt Details Follow Up: prn, Reason: Provider Name:Carmita Costello , 07/26/2024 01:30:00 PM, [address] [place], [address], Procedure Notes * Category Sub-Category Detail Notes [...] use of a nail nipper and/or dremel-type precision jig grinder, to a more viable healthy nail plate [...] to maintain effectiveness in symptomatic relief - 66747-(1-5 left.4.5 Right) Keratoma Treatment Parring or Cutting o f Benign Hyperkeratotic Lesion(s) (-56) 2-4 Lesions - The Benign hyperkeratotic lesions, ( 4) in total, locations as stated and described in exam, were pared, and/or cut utilizing a sterile 15 blade, tissue nippers, and/or power dremel instrumentation - 46845 Progress Notes * Elizabeth AQUINOOB: 945 (78 yo F)Acc No.[id number]:04/20/2024 Progress Note Patient:?Elidia AQUINO Provider:?Carmita Costello DPM :1945???Age:78 Y???Sex:Female D ate:04/20/2024 Address:[address] [place], [place] [address] Pcp:Mary Anne Bundy MD Subjective: * Chief [...] 6.5 * Examination: ???Ophthalmology Referral: ?DIABETES EYE EXAM?Procedure Performed:?Yes ?Date of Exam Performed?03/26/2024 ?Findings of Diabetic Eye Exam:?no retinopathy?General Examination: ?GENERAL APPEARANCE:?Reveals a pleasant, alert, well nourished, well- developed, well hydrated individual, who demonstrates proper attention to hygiene/body habitus, and is in no acute distress, Pt serves as own historian for office visit today.?FOOT EXAM:?Lower Extremity Neurological Exam performed:?Yes ?Visual exam of foot performed:?Yes ?Date?04/20/2024 ?Sensory testing performed:?sensations normal ?Sensory and motor testing performed:?sensations and strength normal ?Pedal pulse taking performed:?2+ ?Footwear Evaluation?Footwear Evaluation performed:?Yes?Neurological: ?SENSORY:?Neurological exam reveals intact sensorium, pain sensation [...] - M79.675??? Plan: * Treatment: 2.?Tinea unguium?Procedure: 52763-ZUAVIWU NAIL, 6 OR MORE * Procedures:?Debride Nail [...] use of a nail nipper and/or dremel-type precision jig grinder, to a more viable healthy nail plate [...] to maintain effectiveness in symptomatic relief - 77173-(1-5 left.4.5 Right).?Keratoma Treatment:?Parring or Cutting of Benign Hyperkeratotic Lesion(s)?(-56) 2-4 Lesions - The Benign hyperkeratotic lesions, ( 4) in total, locations as stated and described in exam, were pared, and/or cut utilizing a sterile 15 blade, tissue nippers, and/or power dremel instrumentation - 13329.? * Procedure Codes:?91764 DEBRI DE NAIL, 6 OR MORE, Modifiers: XS 25541 TRIM SKIN LESIONS, 2 TO 4, Modifiers: XS * Follow Up:?prn * Images: * Sign off status: Completed true * Provider:Reji Costello DPM Date:?2023 Generated for Tory jeff/Keyonna/Michael on:?07/23/2024 11:06 AM EST History and Physical Notes * [...]
--- OUTSIDE RECORDS SUMMARY | 2024-07-23 11:06 | XMS_ITS | Clinical Summary ---
Author Organization [facility] [address] [facility] Address [address] [place] [address] Phone Care Team Providers Care Payment Collector Name Role Phone Mary Anne Bundy MD Primary Care Provider [phone] Allergies No known active allergies Medications atorvastatin [...] Department Care Team Description 05/03/2024 Lab Requisition [facility] - Main Lab [address] [facility] [place] [address] Jordi Marcial MD Encounter for [...] - Tubular adenoma. 05/04/2024 11:08 AM EST [facility] [place]IL[facility] [place] ([facility]) [facility] Clinical Information Screening for malignant neoplasm in the colon Polyp 05/04/2024 11:08 AM EST [facility] Gross Description A. Large Intestine, [...] Result [facility] [address] [place] [address], from Last 3 Months Insurance [facility] Care Teams Payment Collector Relationship Specialty Start Date End Date Mary Anne Bundy MD PCP - General Internal Medicine 04/05/24
--- OUTSIDE RECORDS SUMMARY | 2024-07-23 11:07 | XMS_ITS ---
Author Organization [facility] Address [address] [facility] [address] [place] [address] Care Team Providers Care Farm Machinery Assembler Name Role Phone Mary Anne Bundy MD Primary Care Provider Evelyn Beal Unavailable [phone] Allergies No Known Allergies Results Component Value Reference Range Notes Urinalysis Reviewed date:01/29/2024 03:37:31 PM Interpretation: Performing Lab: Notes/Report: PH 5.0 PROTEIN neg GLUCOSE neg BLOOD neg REASON FOR VISIT Annual SOFT SUGAR CUTTER Physical, Annual SOFT SUGAR CUTTER Physical 60-85+ Medications Medication SIG (Take, Route, [...] 01/29/2024 Encounters Encounter Location Date Provider Diagnosis [address] [address] 01/29/2024 Evelyn Vazquez Encounter for gynecological examination [...] * FARAZ AQUINOOB: 945 (78 yo F)Acc No.[id number]:01/29/2024 PROGRESS NOTES Patient:?VALENTIN AQUINO Appointment Provider:?Evelyn jimenez M.D. :1945???Age:78 Y???Sex:Female D ate:01/29/2024 Address:[address] [place], [place] [address] Pcp:Mary Anne Bundy MD Subjective: * Chief Complaints: * ???Annual SOFT SUGAR CUTTER PhysicalAnnual SOFT SUGAR CUTTER Physical 60-85+ * HPI: ???New/Follow-up Patient Consult:? 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 SHE ENTERED MENOPAUSE IN HER 50'S.? [...] ONE THIS YEAR.? SHE WAS REFERRED TO [facility]. PFIZER X 4. ???Annual:? Patient presents for annual exam, ages 60-85, postmenopausal. ?General Health Maintenance:?Current breast complaints:?no breast pain, mass, discharge, or skin changes ?Urinary problems:?patient reports no urinary health problems or bowel health problems ?Calcium intake:?takes adequate calcium via diet and supplementation ?Significant SOFT SUGAR CUTTER problems:?no significant caustic plant worker symptoms or problems * ROS:?general:?no?chest pain.?no?palpitations.?no?headache.?no?cough.?no?shortness of breath.?no?fever.?no?unexplained weight loss.?no?nausea/vomiting.?no?change in bowel movements.?no blood in stool.?no?genitourinary complaints.?no?skin complaints.? * Medical History:? * Manager Support Services History:?/ Para?1/0.?Sexual activity?currently sexually active.?Last Pap Smear:?10/2015, neg, NEG HRHPV.?Mammogram:?09/23/23 < 50% density, 07/31/21 < 50% density, 07/06/20 < 50% density with add views, 07/05/19 < 50% density, 06/26/18 < 50% density, 05/02/17 w/ add views on R breast - normal, 2015.?Abnormal Pap Smear:?Yes, 02/02/15, Metaplastic Endocervical Cells, Done with Dr. Bundy.?LMP and menses?Kate.? Control:?None.?Colonoscopy?2012.?Bone Density:?07/06/20, 05/20/17, 10-15 years ago.? * [...] Temp: 97.5 F. * Examination: ???General Exam: ?CONSTITUTIONAL:?General Appearance:?alert, in no acute distress, normal, well nourished ?NECK/THYROID:?Inspection/Palpation:?normal ?Thyroid:?normal size and shape ?RESPIRATORY:?Auscultation: clear to auscultation bilaterally, Respiratory Effort: normal.?CARDIOVASCULAR:?Auscultation: regular rate and rhythm.?BREAST, Right:?Inspection/Palpation:?no discharge, no masses present, no nipple retraction, no skin changes, no skin dimpling, no tenderness, no lymphadenopathy, no axillary mass, no axillary tenderness ?BREAST, Left:?Inspection/Palpation:?no discharge, no masses present, no nipple retraction, no skin changes, no skin dimpling, no tenderness, no lymphadenopathy, no axillary mass, no axillary tenderness ?GASTROINTESTINAL:?Abdomen:?no masses, nontender, nondistended ?Liver and Spleen:?normal ?Hernias:?no hernias present, no inguinal adenopathy ?MUSCULOSKELETAL:?Inspection/Palpation:?no clubbing, cyanosis, or edema ?SKIN:?Skin:?normal ?NEURO/PSYCH:?Orientation:?time , place, person ?Mood/Affect:?normal?Genitourinary: ?EXTERNAL GENITALIA:?External Genitalia:?normal, no lesions ?VAGINA:?Vagina:?normal appearance, no abnormal discharge, no lesions ?BLADDER:?Bladder:?no mass, nontender ?URETHRA:?Urethra:?no erythema or lesions present ?CERVIX:?Cervix:?no lesions, nontender ?UTERUS:?Uterus:?UTERUS IS IRREGULARLY ENLARGED TO 10 WEEKS, NONTENDER ?ADNEXA:?Adnexa:?no masses, no tenderness ?ANUS AND PERINEUM:?Anus/Perineum:?visually normal??? Assessment: * Assessment: 1.?Encounter for gynecologic al [...] * Images: Billing Information: * Visit Code:? 04411 Preventive Care Est Pt. Age 65 and over. * Procedure Codes:? * Sign off status: Completed true * Appointment Provider:?Evelyn Vazquez M.D. 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 [...] ONE THIS YEAR. SHE WAS REFERRED TO [facility]. Celiro X 4. Annual General Health Maintenance: Current breast complaints:: no breast pain, mass, discharge, or skin changes Urinary problems:: patient r eports no urinary health problems or bowel health problems Calcium intake:: takes adequ ate calcium via diet and supplementation Significant SOFT SUGAR CUTTER problems:: n o significant caustic plant worker symptoms or problems Examination Category Sub-Category Detail [...]
--- OUTSIDE RECORDS SUMMARY | 2024-07-23 11:07 | XMS_ITS ---
Author Organization [facility] Address [address] [place] [address] Care Team Providers Care Burn Center Nurse Name Role Phone Mary Anne Bundy MD Primary Care Provider Unavaila Carmita Wolfe Unavailable [phone] REASON FOR VISIT Co-pay Encounters Encounter Location Date Provider Diagnosis [address] [address] 09/25/2023 Carmita Costello Plan Of Treatment Next Appt Details Provider Name:Carmita Estrada Pravin , 07/26/2024 01:30:00 PM, [address] [place], [address], Progress Notes * Elizabeth AQUINOOB: 945 (77 yo F)Acc No.[id number]:09/25/2023 Patient:?Elidia Aquino :1945???Age:77 Y???Sex:Female Address:[address] [place] [address], [address] * true * Date:? Generated for Tory jeff/Keyonna/eTransmitting on:?07/23/2024 11:06 AM EST
--- OUTSIDE RECORDS SUMMARY | 2024-07-23 11:07 | XMS_ITS ---
Author Organization [employer] Address [address] [address] Care Team Providers Care Computer Instructor Name Role Phone Gregor SHULTZ, Mary Anne Primary Care Provider Evelyn Beal Unavailable [phone] REASON FOR VISIT ULTRA - FIBROIDS Encounters Encounter Location Date Provider Diagnosis [facility] [address] [address] 02/07/2023 Evelyn Vazquez Plan Of Treatment No Information Progress Notes * FARAZ AQUINOOB: 945 (78 yo F)Acc No.[id number]:02/07/2023 PROGRESS NOTES Patient:?ZAYNABJENNIFERLUTHER VALENTIN Appointment Provider:?Evelyn jimenez M.D. :1945???Age:77 Y???Sex:Female D ate:02/07/2023 Address:[address] [place], [place] [id number] Pcp:Mary Anne Bundy MD Subjective: * Chief Complaints: * ???1. ULTRA - FIBROIDS. * Medical History:? Objective: * Vitals:? Assessment: Plan: * Treatment: * Images: Billing Information: * Visit Code:? * Procedure Codes:? * Electronic signature of Jake Vazquez MD on 07/23/2024 at 11:06 AM EST Sign off status: Pending * Appointment Provider:?Evelyn Vazquez M.D. Date:?02/07/2023 Generated for Tory jeff/Keyonna/Kennethitting on:?07/23/2024 11:06 AM EST
== END 2024-07-23 10:57 | disposition home or self-care (01) ==
PROVIDERS: PCP Internal Medicine; Visit Provider Internal Medicine
DX: I10 Essential (primary) hypertension (principal); E78.5 Hyperlipidemia, unspecified; E11.9 Type 2 diabetes mellitus without complications

== ENCOUNTER → 2024-07-23 10:02 | Outpatient (BNVA) | payer OTHER, SELFPAY | PROVIDERS: PCP Internal Medicine; Visit Provider Internal Medicine | DX: I10 Essential (primary) hypertension (principal); E78.5 Hyperlipidemia, unspecified; E11.9 Type 2 diabetes mellitus without complications; Z79.85 Long-term (current) use of injectable non-insulin antidiabetic drugs; Z79.899 Other long term (current) drug therapy | CPT/HCPCS: 96127 ==

== ENCOUNTER 2024-12-14 10:52 | Outpatient (REF) | payer OTHER, SELFPAY ==
--- OUTSIDE RECORDS SUMMARY | 2024-12-14 12:07 | XMS_ITS | Data Portability ---
Author Organization [place] - [facility], Allergy Address [address] [place] [address] Care Team Providers Care Dean Of Graduate Studies Name Role Phone OBDULIATAMMYFiorellaPIERCE Primary Care Provider [phone] Assessment Encounter Date Assessment Date Assessment LastModified [...] Organization Details Last Modified Time Details Appointments Establish ed 15 2024 01:15P Reshma CLEMENTS PA-C Not available Not available Not available Lab None recorded. Referral None recorded. Procedures None recorded. Surgeries None recorded. Imaging None recorded. Medication Orders None recorded. Patient TargetsNo targets recorded. Patient InstructionsNo instructions recorded. Reason for Referral None Reported. Problems Name Problem SNOMED Code Status Onset Date Resolution Date Notes Provider Name and Address Organization Details Recorded Time Impacted cerumen 90352665 Active 2014 Impacted cerumen; CMS Risk: low risk CMS Treatment : new problem (to examiner) : no additiona l workup planned Not Available [facility] 02:47:13 Sensorine ural hearing loss of bilateral ears 651921727 Active 2015 Sensorine ural hearing loss, bilateral ; Note: Date Diagnosed : 6 3:23 PM (H90.3) Not Available [facility] 4 02:47:18 Impacted cerumen in right ear 89505628749 24015 Active 2015 Impacted cerumen, right ear; Note: Date Diagnosed : 6 3:18 PM (H61.21) Not Available [facility] 4 02:47:17 Impacted cerumen in left ear 19341533270 05544 Active 2016 Impacted cerumen, left ear; Note: Date Diagnosed : 01/29/2017 1:53 PM (H61.22) Not Available [facility] 4 02:47:18 Posterior rhinorrhe a 20034846 Active 2017 Postnasal drip; Note: Date Diagnosed : 08/06/2017 3:00 PM (R09.82) Not Available [facility] 4 02:47:18 Impacted cerumen of bilateral ears 00867078825 68692 Active 2017 Impacted cerumen, bilateral ; Note: Date Diagnosed : 08/06/2017 3:00 PM (H61.23) Not Available [facility] 4 02:47:17 Bilateral disorder of Eustachia n tubes 34767825983 09230 Active 2022 Other specified disorders of Eustachia n tube, bilateral ; Note: Date Diagnosed : 04/29/2023 1:38 PM (H69.83) Not Available [facility] 4 02:47:11 Problem Notes None recorded. Procedures Surgical History Date Name Laterality Status Provider Name and Address Organization Details Recorded Time 4 Cerumen removal without microscope bilat completed DAVID SIFUENTES PA-C [address] [place] [address], [phone], [facility] - [facility] 03/05/2024 14:25:57 Imaging Results None recorded. Procedure [...] mg tablet 02/12 completed Medicati on ID: [id number] Du ration Value: 90 Brand Name: citalopr [...] mg tablet 03/01 completed Medicati on ID: 83807 Du ration Value: 15 Brand Name: oxycodon [...] mg tablet 03/01 completed Medicati on ID: [id number] Du ration Value: 90 Brand Name: simvasta [...] mg tablet 03/01 completed Medicati on ID: [id number] Du ration Value: 90 Brand Name: benazepr il Send Method: E-Prescr ibed Sub s Allowed: subs OK Medic ationGen ericName : benazepr il Not Available Not Available Not Available ketoconaz ole 2 % topical cream 03/05 completed Medicati on ID: [id number] D uration Value: 7 Brand Name: ketocona zole Sen d Method: E-Prescr ibed Sub s Allowed: subs OK Medic ationGen ericName : ketocona zole Not Available Not Available Not Available ipratropi um bromide 21 mcg (0.03 %) nasal spray 2 spray into both nostrils 03/01 completed Medicati on ID: [id number] P rescribe d By Name: CECILIA Espinoza nd Name: ipratrop [...] 24 hr 03/01 completed Medicati on ID: [id number] D uration Value: 30 Brand Name: metformi [...] SNOMED-CT Code Diagnosis ICD10 Code Diagnosis Note 24404 DAVID SIFUENTES PA-C [facility] [address] [address] 03/05/2024 14:04:57 03/05/2024 14:24:05 Impacted cerumen of bilateral ears [id number] 602993 H61.23 Health Concerns Section Related Observation LastModified by Organization Detai ls LastModified Time None Recorded Concern Status LastModified by Organization Details LastModified Time None Recorded Advance Directives Directive None Recorded Payers Insurance Date Sequence Insurance Name Policy Number Policy Yousif Covered Member ID Yousif Member ID Guarantor Name 03/05/2024 1 [facility] [id number] Elidia Mckinnon [id number] Elidia Mckinnon Notes Date Note Type Note Provider Name and Address Organization Details Recorded Time 03/05/2024 text/html 78 year old adiel hamilton presents for ear cleaning. She denies otalgia or otorrhea. She admits to some hearing loss but is not interested in amplification or repeat testing today. Denies tinnitus and vertigo. DENNIS BECKETT MD [address] [place] [address], [place], [address], [facility] - [facility] 03/05/2024 15:28:48 OBGyn Episode No OBEpisode recorded.
--- OUTSIDE RECORDS SUMMARY | 2024-12-14 12:07 | XMS_ITS | Clinical Summary ---
Author Organization [facility] [address] [facility] Address [address] [place] [address] Phone Care Team Providers Care Bookmaker Map Name Role Phone Mary Anne Bundy MD Primary Care Provider [phone] Allergies No known active allergies Medications atorvastatin [...] MULTIVITAMIN, Refills 0, Maintenance, 10/02/15 13:41:06, Compound 05/09/201 6 Active Active Problems Problem Noted Date Diagnosed Date Colon cancer screening 03/31/2024 Type 2 diabetes mellitus wit hout complication ([facility] V24, [facility] V28) 03/31/2024 Social History Tobacco Use Types Packs/Day Years [...] 01/04/2023 01/04/2013 Cholesterol Screening (Lipid Panel) 03/10/2024 Falls Risk Assessment 03/10/2024 Osteoporosis Screening (Bone Density Screening) 03/10/2024 Social Influencers of Health Screening 03/10/2024 Diabetes: Annual Urine Albumin-Creatinine Ratio (uACR) 03/31/2024 Diabetes: Blood Sugar Control Test (HGBA1C) 03/31/2024 Hypertension/CHF/CAD Annual BMP Blood Test 04/05/2024 Depression Screening 05/26/2024 COVID-19 Vaccine ( season) 2024 02/06/2024, 02/27/2023, 02/11/2022, Additional history exists Influenza Vaccine (#1) 2025 , 02/27/2023, 03/13/2022, Additional history exists RSV Immunization Adult Patients Completed 03/05/2023 Pneumococcal Vaccine: 50+ Years Completed 02/06/2024, 04/10/2015, [...] age to complete this topic Meningococcal B Vaccine Aged Out No l onger eligible based on patient's age to complete this topic RSV Immunization Patients Under 20 months Aged Out No longer eligible based on patient's age to complete this topic Varicella Vaccines Aged Out No longer eligible based on patient's age to complete this topic Insurance [facility] Care Teams Bookmaker Map Relationship Specialty Start Date End Date Mary Anne Bundy MD PCP - General Internal Medicine 04/05/24
--- OUTSIDE RECORDS SUMMARY | 2024-12-14 12:07 | XMS_ITS | Patient Health Record ---
Author Organization [employer] [facility] Address [address] [facility] [address] [place] [address] Care Team Providers Care Graphic Technician Name Role Phone Mary Anne Bundy MD Primary Care Provider Evelyn Beal Unavailable [phone] Allergies No Known Allergies Results Component Value [...] day Active Ozempic (2 MG/DOSE) 8 MG/3ML Subcutaneous; Duration: 84 Days Active Gabapentin 300 MG 1 [...] e a day Active Furosemide 20 MG Oral; Duration: 90 Days Active Social History Tobacco Use: [...] Status Risk Notes Problem Postmenopausal atrophic vaginitis (54520664) 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) Active confirmed Problem Morbid (severe) obesity due to excess calories (E66.01) Active confirmed Vital Signs Temperature 97.5 degrees Fahrenheit 01/29/2024 Blood pressure diastolic 58 mm Hg 01/29/2024 Height 62 in 01/29/2024 Blood pressure systolic 110 mm Hg 01/29/2024 Weight 220 lbs 01/29/2024 BMI 40.23 kg/m2 01/29/2024 Encounters Encounter Location Date Provider Diagnosis [address] [address] 01/29/2024 Evelyn Vazquez Encounter for gynecological examination [...] Insured Coverage Start Date Coverage End Date [facility] [address] [place] [address] [id number] VALENTIN ESTRADA Self - patient is the [...]
--- OUTSIDE RECORDS SUMMARY | 2024-12-14 12:08 | XMS_ITS | Patient Health Record ---
Author [facility] Address [address] [place] [address] Care Team Providers Care Preschool Education Director Name Role Phone Mary Anne Bundy MD Primary Care Provider Unavaila Carmita Wolfe Unavailable [phone] Allergies No Known Allergies Results Component Value Reference Range Notes HEMOGLOBIN A1C (GLYCOHEMOGLO BIN) Reviewed date:07/26/2024 01:41:04 PM Interpretation: Performing Lab: Notes/Report: HEMOGLOBIN A1C (GLYCOHEMOGLO BIN) Reviewed date:11/08/2024 01:38:15 PM Interpretation: Performing Lab: Notes/Report: HEMOGLOBIN A1C % (HH) 6.5 Reason For Referral No Information Medications Medication SIG (Take, Route, Frequency, Duration) Notes Start Date End Date Status Milk of Magnesia Act edis hydroCHLOROthiazide 25 mg Once a day Not-Taking Centrum Vitamints - as directed Orally Active Biotin 5000 MCG as directed Orally Not-Taking Lasix 20 MG 1 tablet Orally Once a day Active Gabapentin Not-Takin g Citalopram & Diet Manage Prod Active Benazepril HCl Not-T aking Olmesartan Medoxomil 20 MG 1 tablet Oral ly Once a day; Duration: 30 day(s) Active Omeprazole 20 MG 1 capsule 30 minutes before morning meal Orally Once a day; Duration: 30 day(s) Active Trulicity Active Ozempic Active Extra Depth Orthopedic Shoes (1 Pair) with Customized Heat Molded Multidensity Innersoles (3 Pair) as directed Dx: NIDDM/Polyneuropathy (E11.42), Hammertoe Foot Deformity (M20.41,M20.42), Preulcerative Skin Lesion(s) (L85.1 07/26/2024 Active Hyoscyamine Active glipiZIDE Active Atorvastatin Calcium Active metFORMIN HCl Not-Ta starla Simvastatin Not-Taki ng Amlodipine & Diet Manage Prod Not-Taking Immunizations Vaccine Route Administration Date Status Comme nts Influenza Unknown 07/01/2016 Refused Influenza Unknown 03/26/2017 Administered Influenza Unknown 05/01/2018 Administered Influenza Unknown 01/25/2019 Administered Influenza Unknown 02/24/2020 Administered Influenza Unknown 02/23/2021 Administered Influenza Unknown 01/24/2023 Administered Influenza Unknown 02/24/2024 Administered COVID-19 Pfizer BioNTech Vaccine Unknown 02/16/2021 Administered 1st dose 06/27/2020 Second Dose: 07/19/2020 Social History Tobacco Use: Social History Observation Description Date Details (start date - stop date) Never Smoker NA - NA Tobacco use other than smoking: Question Answer Notes Are you an other tobacco user? No Tobacco Control (Standard) Question Answer Notes Tobacco use: Nonsmoker Additional Findings: Tobacco non-user Current no nsmoker AUDIT-C (Standard) Question Answer Notes Did you have a drink containing alcohol in the p ast year? No Points 0 Interpretation Negative Problems Problem Type SNOMED Code ICD Code Onset Dates Problem Status W/U Status Risk Notes Problem Polyneuropathy due to type 2 diabetes mellitus (167613372) Type 2 diabetes mellitus with diabetic polyneuropathy (E11.42) Active confirmed Vital Signs Blood pressure diastolic 80 mm Hg 11/08/2024 Height 5 ft 2 in in 11/08/2024 Blood pressure systolic 120 mm Hg 11/08/2024 Weight 202 lbs 11/08/2024 BMI 36.94 kg/m2 11/08/2024 Procedures Procedure Date Ordered Date Performed Result Body Sit e 39261-LBONEJG NAIL, 6 OR MORE 01/15/2024 N/A 11653-FXTT SKIN LESIONS, 2 TO 4 01/15/2024 N/A 11121-AGJGUPZ NAIL, 6 OR MORE 04/20/2024 N/A 82926-FREQ SKIN LESIONS, 2 TO 4 04/20/2024 N/A 57667-FZEMSJP NAIL, 6 OR MORE 07/26/2024 N/A 02849-RDHJ SKIN LESIONS, 2 TO 4 07/26/2024 N/A 50048-HMXSMYP NAIL, 6 OR MORE 11/08/2024 N/A 92798-QWZU SKIN LESIONS, 2 TO 4 11/08/2024 N/A Encounters Encounter Location Date Provider Diagnosis [address] [address] 01/15/2024 Carmita Black Tinea unguium B35.1 ; Type 2 diabetes mellitus without complications E11.9 ; Pain in right toe(s) M79.674 and Pain in left toe(s) M79.[address] [address] 04/20/2024 Carmita Black Tinea unguium B35.1 ; Type 2 diabetes mellitus without complications E11.9 ; Pain in right toe(s) M79.674 and Pain in left toe(s) M79.[address] [address] 07/26/2024 Carmita Black Tinea unguium B35.1 ; Other hammer toe(s) (acquired), right foot M20.41 ; Other hammer toe(s) (acquired), left foot M20.42 and Type 2 diabetes mellitus with diabetic polyneuropathy E11.[address] [address] 11/08/2024 Carmita Black Tinea unguium B35.1 and Type 2 diabetes mellitus with diabetic polyneuropathy E11.42 Assessments Encounter Date Diagnosis (ICD Code) Assessment Notes Treatment Notes Treatment Clinical Notes Section Notes 01/15/2024 Tinea unguium (ICD-10 - B35.1) 04/20/2024 Tinea unguium (ICD-10 - B35.1) 07/26/2024 Other hammer toe(s) (acquired), right foot (ICD-10 - M20.41) Patient Educated with: DIABETIC FOOT CARE INSTRUCTIONS. pdf (DIABETIC FOOT CARE INSTRUCTIONS. pdf) 07/26/2024 Tinea unguium (ICD-10 - B35.1) 11/08/2024 Tinea unguium (ICD-10 - B35.1) 11/08/2024 Type 2 diabetes mellitus with diabetic polyneuropathy (ICD-10 - E11.42) 07/26/2024 Other hammer toe(s) (acquired), left foot (ICD-10 - M20.42) 01/15/2024 Type 2 diabetes mellitus without complications (ICD-10 - E11.9) 04/20/2024 Type 2 diabetes mellitus without complications (ICD-10 - E11.9) 01/15/2024 Pain in right toe(s) (ICD-10 - M79.674) 04/20/2024 Pain in right toe(s) (ICD-10 - M79.674) 07/26/2024 Type 2 diabetes mellitus with diabetic polyneuropathy (ICD-10 - E11.42) 04/20/2024 Pain in left toe(s) (ICD-10 - M79.675) 01/15/2024 Pain in left toe(s) (ICD-10 - M79.675) 11/08/2024 Other Plan Of Treatment Pending Test Test Name Order Date 78150-ODOQYDM NAIL, 6 OR MORE 02/04/2011 53030-TBOSEDG NAIL, 6 OR MORE 06/06/2011 52634-SEMTHDR NAIL, 6 OR MORE 09/05/2011 20982-ALOOPHQ NAIL, 6 OR MORE 12/05/2011 40806-EACJLHR NAIL, 6 OR MORE 04/06/2012 39546-ITRMKPO NAIL, 6 OR MORE 07/06/2012 25563-FRDBUUR NAIL, 6 OR MORE 10/07/2012 88400-NYOWTVZ NAIL, 6 OR MORE 01/11/2013 49446-AXLPRYX NAIL, 6 OR MORE 04/05/2013 13209-QHQMIAG NAIL, 6 OR MORE 06/29/2014 44243-PZMTRJX NAIL, 6 OR MORE 04/03/2015 40537-GZHLDQR NAIL, 6 OR MORE 07/03/2015 60687-VPPURGJ NAIL, 6 OR MORE 10/30/2015 52097-JBWWATE NAIL, 6 OR MORE 09/28/2014 12570-SOGHVCE NAIL, 6 OR MORE 02/26/2016 00344-MQDMBXG NAIL, 6 OR MORE 07/01/2016 87072-QNDBHWZ NAIL, 6 OR MORE 10/03/2016 71032-HAREQCY NAIL, 6 OR MORE 12/30/2016 94643-OEKQYHI NAIL, 6 OR MORE 04/02/2017 24042-DYAFDEN NAIL, 6 OR MORE 07/03/2017 84889-ZECEVER NAIL, 6 OR MORE 10/02/2017 08438-PUQSKLV NAIL, 6 OR MORE 01/05/2018 74495-DUOEGTR NAIL, 6 OR MORE 04/10/2018 12877-JOPGIZX NAIL, 6 OR MORE 07/09/2018 78232-GARLTQD NAIL, 6 OR MORE 10/08/2018 97046-KUHCDVB NAIL, 6 OR MORE 01/11/2019 55333-THWAORL NAIL, 6 OR MORE 04/15/2019 72541-TTCRSXG NAIL, 6 OR MORE 07/22/2019 43241-DBPZOWL NAIL, 6 OR MORE 10/14/2019 58019-NVOFUBP NAIL, 6 OR MORE 01/17/2020 28872-TRUEGKB NAIL, 6 OR MORE 05/01/2020 83887-MVBIIQD NAIL, 6 OR MORE 11/02/2020 15807-WNMQHVX NAIL, 6 OR MORE 02/01/2021 97975-NSOVMYK NAIL, 6 OR MORE 05/09/2021 51256-IVHKFEM NAIL, 6 OR MORE 08/20/2021 42379-GDQEZAN NAIL, 6 OR MORE 05/16/2022 31208-MVODBRB NAIL, 6 OR MORE 12/05/2022 85207-UZOVKTS NAIL, 6 OR MORE 01/17/2022 96613-DYSWGIN NAIL, 6 OR MORE 03/20/2023 92864-QKZBTFZ NAIL, 6 OR MORE 09/25/2023 53184-MRQERZF NAIL, 6 OR MORE 01/15/2024 52477-KPKLHOH NAIL, 6 OR MORE 06/26/2023 11837-FGOHCJI NAIL, 6 OR MORE 04/20/2024 98811-RLMPSHD NAIL, 6 OR MORE 07/26/2024 02019-MKOUICY NAIL, 6 OR MORE 11/08/2024 29732-VTJMISV NAIL, 1-5 12/28/2014 55153-XFSYLRD NAIL, 1-5 04/07/2014 06045-Czhu Destruction, -14 12/05/2011 20447-Iflg Destruction, -14 06/06/2011 26739-Udjb Destruction, -14 09/05/2011 03513-Ijwt Destruction, -14 02/04/2011 32216-Ajobxgnt Plate 09/05/2011 18975-Lxvqgknb Plate 07/08/2013 51567-Wstwacql Plate 10/05/2013 54390-Jsoiwuzr Plate 01/06/2014 78274-Utjwefhx Plate 04/07/2014 09610-Twxlcvjw Plate 09/28/2014 21849-Sfcfacgi Plate 12/28/2014 16676-Lpwtwsdb Plate 10/14/2019 08457-Sxbdubtt Plate 07/09/2018 38637-Oqyxshjo Plate 03/20/2023 50614-Qxsfwfee Plate Each Additional 01441-PFFD SKIN LESIONS, 2 TO 4 02/26/20 16 70411-YFXF SKIN LESIONS, 2 TO 4 12/31/19 17 82746-HFRX SKIN LESIONS, 2 TO 4 07/01/19 17 43968-VTGG SKIN LESIONS, 2 TO 4 10/04/19 17 20971-ZGNN SKIN LESIONS, 2 TO 4 10/30/19 16 61383-JNOY SKIN LESIONS, 2 TO 4 10/09/19 19 79705-BSVL SKIN LESIONS, 2 TO 4 01/12/20 19 43811-GEPJ SKIN LESIONS, 2 TO 4 07/09/19 19 71430-IWWR SKIN LESIONS, 2 TO 4 04/10/20 18 57552-GHDX SKIN LESIONS, 2 TO 4 01/06/20 18 11695-QMFY SKIN LESIONS, 2 TO 4 10/03/19 18 24802-OHZM SKIN LESIONS, 2 TO 4 07/03/19 18 97860-BUJD SKIN LESIONS, 2 TO 4 04/02/20 17 81949-PROT SKIN LESIONS, 2 TO 4 01/17/20 20 53322-ASQB SKIN LESIONS, 2 TO 4 10/14/19 20 15160-UTMT SKIN LESIONS, 2 TO 4 07/22/19 20 14896-PEQX SKIN LESIONS, 2 TO 4 04/15/20 19 71910-WYWY SKIN LESIONS, 2 TO 4 05/09/20 21 92679-EZCS SKIN LESIONS, 2 TO 4 02/02/20 21 13541-WYCD SKIN LESIONS, 2 TO 4 11/03/19 21 95010-CONM SKIN LESIONS, 2 TO 4 05/01/20 20 24176-IGBH SKIN LESIONS, 2 TO 4 11/09/19 25 29353-DAWJ SKIN LESIONS, 2 TO 4 07/27/19 29248-ABMV SKIN LESIONS, 2 TO 4 05/02/20 24 88161-YZBG SKIN LESIONS, 2 TO 4 01/15/20 24 31811-LUPF SKIN LESIONS, 2 TO 4 04/20/20 24 72350-KVAI SKIN LESIONS, 2 TO 4 06/26/19 24 26857-DNST SKIN LESIONS, 2 TO 4 05/16/20 31500-PPKW SKIN LESIONS, 2 TO 4 12/06/19 23 08215-DJNV SKIN LESIONS, 2 TO 4 03/20/20 23 34044-UXLQ SKIN LESIONS, 2 TO 4 01/18/20 22 54580-ELCA SKIN LESIONS, 2 TO 4 08/21/19 Next Appt Details Provider Name:Carmita Costello , 02/07/2025 02:45:00 PM, [address] [place], [address], Insurance Providers Payer Name Payer Address Payer Phone Subscriber Number Group Number Insured Name Patient Relationship to Insured Coverage Start Date Coverage End Date [facility] [address] [place] [address] [phone] [id number] Elidia Sanders Self - patient is the insured Medical (General) History Medical History History ICD Code osteoporosis high blood pressure gall bladder problems depression cataracts Anxiety disorder diabetic Cholesterol type II diabetes Other hammer toe(s) (acquired), right fo ot M20.41 Other hammer toe(s) (acquired), left cristian t M20.42 Surgical History Surgery Date(Month/Year) cholecystectomy cataract surgery ou 2008 left wrist 04/2011 Lipoma 08/2017 Macular hole repair 06/2021 Hospitalization History Reason Date(Month/Year)
[2024-12-14 13:55] LABS: Hemoglobin A1C 116.6356 umol/L; Total Hemoglobin (HGBA1C) 3255.7730 umol/L
[2024-12-14 14:07] LABS: Alanine Aminotransferase 23 U/L (0-31); Albumin Level 4.2 g/dL (3.5-5.0); Alkaline Phosphatase 78 U/L (39-117); Anion Gap 11 (12-20); Aspartate Amino Transferase 21 U/L (5-31); Blood Urea Nitrogen 22 mg/dL (9-16); Calcium 10.0 mg/dL (8.4-10.2); Carbon Dioxide 28 mmol/L (22-29); Chloride 105 mmol/L (96-108); Cholesterol 165 mg/dL (<200); Estimated Glomerular Filt Rate > 60; HDL Cholesterol 41 mg/dL (>40); Potassium 5.3 mmol/L (3.3-5.1); Sodium 139 mmol/L (135-145); Total Protein 6.8 g/dL (6.5-8.0); Triglycerides 141 mg/dL (<150)
== END 2024-12-14 10:53 | disposition home or self-care (01) ==
LOC: HO.HMGCLDS 10:52
PROVIDERS: PCP Internal Medicine; Visit Provider Internal Medicine
DX: E11.9 Type 2 diabetes mellitus without complications (principal); E78.5 Hyperlipidemia, unspecified; I10 Essential (primary) hypertension
CPT/HCPCS: 36415; 80053; 80061; 82043; 82570; 83036

== ENCOUNTER 2024-12-17 12:29 | Outpatient (AMB) | payer OTHER, SELFPAY ==
--- OUTSIDE RECORDS SUMMARY | 2024-12-17 12:32 | XMS_ITS | Data Portability ---
Author Organization [place] - [facility], Allergy Address [address] [place] [address] Care Team Providers Care Beach Attendant Name Role Phone OBDULIATAMMYFiorellaPIERCE Primary Care Provider [phone] Assessment Encounter Date Assessment Date Assessment LastModified [...] Address Organization Details Recorded Time Impacted cerumen 78710683 Active 2014 Impacted cerumen; CMS Risk: low risk CMS Treatment : new problem (to examiner) : no additiona l workup planned Not Available [facility] 02:47:13 Sensorine ural hearing loss of bilateral ears 320811171 Active 2015 Sensorine ural hearing loss, bilateral ; Note: Date Diagnosed : 6 3:23 PM (H90.3) Not Available [facility] 4 02:47:18 Impacted cerumen in right ear 64425347375 59157 Active 2015 Impacted cerumen, right ear; Note: Date Diagnosed : 6 3:18 PM (H61.21) Not Available [facility] 4 02:47:17 Impacted cerumen in left ear [id number] 05549 Active 2016 Impacted cerumen, left ear; Note: Date Diagnosed : 01/29/2017 1:53 PM (H61.22) Not Available [facility] 4 02:47:18 Posterior rhinorrhe a 06411666 Active 2017 Postnasal drip; Note: Date Diagnosed : 08/06/2017 3:00 PM (R09.82) Not Available [facility] 4 02:47:18 Impacted cerumen of bilateral ears 56988185415 60156 Active 2017 Impacted cerumen, bilateral ; Note: Date Diagnosed : 08/06/2017 3:00 PM (H61.23) Not Available [facility] 4 02:47:17 Bilateral disorder of Eustachia n tubes 77666932579 48974 Active 2022 Other specified disorders of Eustachia n tube, bilateral ; Note: Date Diagnosed : 04/29/2023 1:38 PM (H69.83) Not Available [facility] 4 02:47:11 Problem Notes None recorded. Procedures Surgical History Date Name Laterality Status Provider Name and Address Organization Details Recorded Time 4 Cerumen removal without microscope bilat completed DAVID SIFUENTES PA-C [address] [place] [address], [phone], [facility] - [facility] 03/05/2024 14:25:57 Imaging Results None recorded. Procedure [...] mg tablet 02/12 completed Medicati on ID: [id number] Du ration Value: 90 Brand Name: citalopr [...] mg tablet 03/01 completed Medicati on ID: [id number] Du ration Value: 15 Brand Name: oxycodon [...] mg tablet 03/01 completed Medicati on ID: [id number] Du ration Value: 90 Brand Name: simvasta [...] mg tablet 03/01 completed Medicati on ID: [id number] Du ration Value: 90 Brand Name: benazepr il Send Method: E-Prescr ibed Sub s Allowed: subs OK Medic ationGen ericName : benazepr il Not Available Not Available Not Available ketoconaz ole 2 % topical cream 03/05 completed Medicati on ID: [id number] D uration Value: 7 Brand Name: ketocona zole Sen d Method: E-Prescr ibed Sub s Allowed: subs OK Medic ationGen ericName : ketocona zole Not Available Not Available Not Available ipratropi um bromide 21 mcg (0.03 %) nasal spray 2 spray into both nostrils 03/01 completed Medicati on ID: [id number] P rescribe d By Name: CECILIA Espinoza [...] 24 hr 03/01 completed Medicati on ID: [id number] D uration Value: 30 Brand Name: metformi [...] History Nothing Reported. Medical History Condition Response Anxiety Y Depression Y Diabetes Y High Cholesterol Y Hypertension Y Gynecological HistoryNo gynecological history recorded. Obstetrics History GPAL:G 0 P 0 0 0 0 Past Encounters Encounter ID Performer Location Encounter Start Date Encounter Closed Date Diagnosis/Indication Diagnosis SNOMED-CT Code Diagnosis ICD10 Code Diagnosis Note [id number] DAVID SIFUENTES PA-C [facility] [address] [address] 03/05/2024 14:04:57 03/05/2024 14:24:05 Impacted cerumen of bilateral ears [id number] 829904 H61.23 Health Concerns Section Related Observation LastModified by Organization Detai ls LastModified Time None Recorded Concern Status LastModified by Organization Details LastModified Time None Recorded Advance Directives Directive None Recorded Payers Insurance Date Sequence Insurance Name Policy Number Policy Yousif Covered Member ID Yousif Member ID Guarantor Name 03/05/2024 1 [facility] [id number] Elidia Mckinnon [id number] Elidia Mckinnon Notes Date Note Type Note Provider Name and Address Organization Details Recorded Time 03/05/2024 text/html ROS as noted in the HPI 78 year old female presents for ear cleaning. She denies otalgia or otorrhea. She admits to some hearing loss but is not interested in amplification or repeat testing today. Denies tinnitus and vertigo. DENNIS BECKETT MD [address] [place] [address], [place], [address], [facility] - [facility] 03/05/2024 15:28:48 OBGyn Episode No OBEpisode recorded.
--- OUTSIDE RECORDS SUMMARY | 2024-12-17 12:32 | XMS_ITS | Clinical Summary ---
Author Organization [facility] [address] [facility] Address [address] [place] [address] Phone Care Team Providers Care Maintenance Shop Manager Name Role Phone Mary Anne Bundy MD Primary Care Provider [phone] Allergies No known active allergies Medications atorvastatin [...] Type 2 diabetes mellitus wit hout complication ([facility] V24, [facility] V28) 03/31/2024 Social History Tobacco [...] patient's age to complete this topic Insurance [facility] Care Teams Maintenance Shop Manager Relationship Specialty Start Date End Date Mary Anne Bundy MD PCP - General Internal Medicine 04/05/24
--- OUTSIDE RECORDS SUMMARY | 2024-12-17 12:32 | XMS_ITS | Patient Health Record ---
Author [facility] Address [address] [place] [address] Care Team Providers Care Activity Specialist Name Role Phone Mary Anne Bundy MD Primary Care Provider Unavaila Carmita Wolfe Unavailable [phone] Allergies No Known Allergies Results Component Value [...] Status W/U Status Risk Notes Problem Type 2 diabetes mellitus with diabetic polyneuropathy (E11.42) Active confirmed Vital Signs Blood pressure diastolic 80 mm Hg 11/08/2024 Height 5 ft 2 in in 11/08/2024 Blood pressure systolic 120 mm Hg 11/08/2024 Weight 202 lbs 11/08/2024 BMI 36.94 kg/m2 11/08/2024 Procedures Procedure Date Ordered Date Performed Result Body Sit e 41444-OIZYTBB NAIL, 6 OR MORE 01/15/2024 N/A 97017-BXHD SKIN LESIONS, 2 TO 4 01/15/2024 N/A 11226-UDBIFBD NAIL, 6 OR MORE 04/20/2024 N/A 42085-XURI SKIN LESIONS, 2 TO 4 04/20/2024 N/A 84237-EXNMPQS NAIL, 6 OR MORE 07/26/2024 N/A 44945-UCPK SKIN LESIONS, 2 TO 4 07/26/2024 N/A 42690-NSUCTTL NAIL, 6 OR MORE 11/08/2024 N/A 98839-QLQQ SKIN LESIONS, 2 TO 4 11/08/2024 N/A Encounters Encounter Location Date Provider Diagnosis [address] [address] 01/15/2024 Carmita Black Tinea unguium B35.1 ; Type 2 diabetes mellitus without complications E11.9 ; Pain in right toe(s) M79.674 and Pain in left toe(s) M79.[address] [address] 04/20/2024 Carmita Black Tinea unguium B35.1 ; Type 2 diabetes mellitus without complications E11.9 ; Pain in right toe(s) M79.674 and Pain in left toe(s) M79.[address] [address] 07/26/2024 Carmita Black Tinea unguium B35.1 ; Other hammer toe(s) (acquired), right foot M20.41 ; Other hammer toe(s) (acquired), left foot M20.42 and Type 2 diabetes mellitus with diabetic polyneuropathy E11.[address] [address] 11/08/2024 Carmita Black Tinea unguium B35.1 and [...] Treatment Pending Test Test Name Order Date 46604-HMOBMGF NAIL, 6 OR MORE 02/04/2011 35945-LFOSPNP NAIL, 6 OR MORE 06/06/2011 27256-OATLYJB NAIL, 6 OR MORE 09/05/2011 42716-LGRVPKD NAIL, 6 OR MORE 12/05/2011 68885-LUZSXYU NAIL, 6 OR MORE 04/06/2012 25905-WBUPDTZ NAIL, 6 OR MORE 07/06/2012 48325-QLFAKKG NAIL, 6 OR MORE 10/07/2012 42647-EOGPBHF NAIL, 6 OR MORE 01/11/2013 36948-QQHMHGX NAIL, 6 OR MORE 04/05/2013 91007-LCUSHII NAIL, 6 OR MORE 06/29/2014 10860-OQDQDLE NAIL, 6 OR MORE 04/03/2015 02897-MBGNGLS NAIL, 6 OR MORE 07/03/2015 03779-PAHEGMR NAIL, 6 OR MORE 10/30/2015 78869-RQUXUYM NAIL, 6 OR MORE 09/28/2014 56563-CGNVRIP NAIL, 6 OR MORE 02/26/2016 73114-QCXMABH NAIL, 6 OR MORE 07/01/2016 91456-TTVUFAP NAIL, 6 OR MORE 10/03/2016 01740-DSUMOWH NAIL, 6 OR MORE 12/30/2016 34795-GVRBUDU NAIL, 6 OR MORE 04/02/2017 53358-MGQYJPQ NAIL, 6 OR MORE 07/03/2017 90369-FXDQDDO NAIL, 6 OR MORE 10/02/2017 98312-HWTBJJS NAIL, 6 OR MORE 01/05/2018 07936-NKMMWAH NAIL, 6 OR MORE 04/10/2018 16910-QHTZGTL NAIL, 6 OR MORE 07/09/2018 51759-ITECAVT NAIL, 6 OR MORE 10/08/2018 32469-XWRVWJH NAIL, 6 OR MORE 01/11/2019 32940-ALGHACH NAIL, 6 OR MORE 04/15/2019 26429-OEKSKCY NAIL, 6 OR MORE 07/22/2019 65969-DUXRLLF NAIL, 6 OR MORE 10/14/2019 31219-NLZFFPB NAIL, 6 OR MORE 01/17/2020 08178-VPXRYHD NAIL, 6 OR MORE 05/01/2020 50674-UKTFXIC NAIL, 6 OR MORE 11/02/2020 51422-IARWOOF NAIL, 6 OR MORE 02/01/2021 28505-VBDWAFT NAIL, 6 OR MORE 05/09/2021 06740-ZSVTMQG NAIL, 6 OR MORE 08/20/2021 43370-WXBDKSG NAIL, 6 OR MORE 05/16/2022 25873-OCOPFUS NAIL, 6 OR MORE 12/05/2022 14082-OFTEIPJ NAIL, 6 OR MORE 01/17/2022 17924-XXOWZTP NAIL, 6 OR MORE 03/20/2023 01032-VCFVRTL NAIL, 6 OR MORE 09/25/2023 86756-VMRPBRK NAIL, 6 OR MORE 01/15/2024 67252-ZUOQJKA NAIL, 6 OR MORE 06/26/2023 74058-AXMUSNH NAIL, 6 OR MORE 04/20/2024 01384-VGVQWRY NAIL, 6 OR MORE 07/26/2024 48601-BASFLBK NAIL, 6 OR MORE 11/08/2024 36085-WGWJSCX NAIL, 1-5 12/28/2014 86447-AXIGUPD NAIL, 1-5 04/07/2014 20267-Skei Destruction, -12/05/2011 10952-Iqox Destruction, -14 06/06/2011 51831-Xjqz Destruction, -09/05/2011 76053-Rkrj Destruction, -14 02/04/2011 22643-Mgkzypgl Plate 09/05/2011 31016-Fvzpxjtx Plate 07/08/2013 75578-Qukcwyvg Plate 10/05/2013 08596-Jvevdwge Plate 01/06/2014 90469-Jnntxqod Plate 04/07/2014 30573-Ixujofho Plate 09/28/2014 19193-Zazcrybc Plate 12/28/2014 75079-Bbrebrxu Plate 10/14/2019 06803-Ylvxfzqj Plate 07/09/2018 27531-Ixuqtpcs Plate 03/20/2023 77612-Kthhosfx Plate Each Additional 15461-EFRX SKIN LESIONS, 2 TO 4 02/26/20 16 55509-WNNT SKIN LESIONS, 2 TO 4 12/31/19 17 23738-CCQJ SKIN LESIONS, 2 TO 4 07/01/19 17 97442-YRUH SKIN LESIONS, 2 TO 4 10/04/19 17 75401-ESKY SKIN LESIONS, 2 TO 4 10/30/19 16 76916-YVCW SKIN LESIONS, 2 TO 4 10/09/19 19 74293-PFTM SKIN LESIONS, 2 TO 4 01/12/20 19 84809-PVQM SKIN LESIONS, 2 TO 4 07/09/19 19 97763-CHCJ SKIN LESIONS, 2 TO 4 04/10/20 18 10399-WDLL SKIN LESIONS, 2 TO 4 01/06/20 18 22443-ICMP SKIN LESIONS, 2 TO 4 10/03/19 18 23956-SWAL SKIN LESIONS, 2 TO 4 07/03/19 18 02240-OIFT SKIN LESIONS, 2 TO 4 04/02/20 17 89811-TWBW SKIN LESIONS, 2 TO 4 01/17/20 20 25298-NYJV SKIN LESIONS, 2 TO 4 10/14/19 20 11294-KPWP SKIN LESIONS, 2 TO 4 07/22/19 20 37443-OCOM SKIN LESIONS, 2 TO 4 04/15/20 19 10988-ZUBM SKIN LESIONS, 2 TO 4 05/09/20 21 22382-SXLK SKIN LESIONS, 2 TO 4 02/02/20 21 35106-WORI SKIN LESIONS, 2 TO 4 11/03/19 21 81505-QABD SKIN LESIONS, 2 TO 4 05/01/20 20 48980-XNWO SKIN LESIONS, 2 TO 4 11/09/19 25 43818-TSVH SKIN LESIONS, 2 TO 4 07/27/19 26587-GKBU SKIN LESIONS, 2 TO 4 09/25/19 24 09781-YMSS SKIN LESIONS, 2 TO 4 08/22/20 24 78690-GUYO SKIN LESIONS, 2 TO 4 04/20/20 24 71020-GZHR SKIN LESIONS, 2 TO 4 06/26/19 24 17822-BHEN SKIN LESIONS, 2 TO 4 05/16/20 22 72148-GENS SKIN LESIONS, 2 TO 4 12/06/19 23 21562-QHWE SKIN LESIONS, 2 TO 4 03/20/20 23 59991-DDOG SKIN LESIONS, 2 TO 4 01/18/20 54491-WXYY SKIN LESIONS, 2 TO 4 08/21/19 Next Appt Details Provider Name:Carmita Costello , 02/07/2025 02:45:00 PM, [address] [place], [address], Insurance Providers Payer Name Payer Address Payer Phone Subscriber Number Group Number Insured Name Patient Relationship to Insured Coverage Start Date Coverage End Date [facility] [address] [place] [address] [phone] [id number] Elidia Sanders Self - patient is the [...]
--- OUTSIDE RECORDS SUMMARY | 2024-12-17 12:32 | XMS_ITS | Patient Health Record ---
Author Organization [facility] Address [address] [facility] [address] [place] [address] Care Team Providers Care Geological Technician Name Role Phone Mary Anne Bundy MD Primary Care Provider Evelyn Beal Unavailable [phone] Allergies No Known Allergies Results Component Value [...] Status Risk Notes Problem Postmenopausal atrophic vaginitis (84905421) 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) Active confirmed Problem Morbid (severe) obesity due to excess calories (E66.01) Active confirmed Vital Signs Temperature 97.5 degrees Fahrenheit 01/29/2024 Blood pressure diastolic 58 mm Hg 01/29/2024 Height 62 in 01/29/2024 Blood pressure systolic 110 mm Hg 01/29/2024 Weight 220 lbs 01/29/2024 BMI 40.23 kg/m2 01/29/2024 Encounters Encounter Location Date Provider Diagnosis [address] [address] 01/29/2024 Evelyn Vazquez Encounter for gynecological examination [...] Insured Coverage Start Date Coverage End Date [facility] [address] [place] [address] [id number] VALENTIN ESTRADA Self - patient is the [...]
[2024-12-17 12:34] VITALS: BP 132/66; PULSE 71; O2SAT 97; BMI 37.5
--- NOTE | 2024-12-17 12:34 | A.OFFPC_ITS ---
Vital Signs 12/17/24 12:34 Height 5 ft 2 in Weight 205 lb BMI 37.5 BP 132/66 Blood Pressure Location Lt brachial Position Sitting Pulse 71 Pulse Source Pulse Oximeter Pulse Oximetry (%) 97 Intake Visit Reasons: Annual PE Political Cartoonist Required: No Allergies linagliptin (Tradjenta) Adverse Reaction (Unknown, Verified 12/17/24 12:34) yeast infection metformin Adverse Reaction (Unknown, Verified 12/17/24 12:34) diarrhea Medication List - Last Reconciled 12/17/24 by Mary Anne Bundy MD atorvastatin 20 mg PO DAILY citalopram 10 mg PO DAILY furosemide (Lasix) 20 mg PO DAILY gabapentin 300 mg PO BID glipizide ER 2.5 orally daily; ketoconazole 2% 1 appl topical BID PRN multivitamin 1 tab PO DAILY [nutrafol 1 cap 5 times a day for hair ] olmesartan 20 mg PO DAILY omeprazole 20 mg PO QAM Ozempic (semaglutide) 2 mg (0.75 mL) subcut QWEEK NS triamcinolone acetonide 0.1% 1 appl topical BID PRN Tobacco use date assessed: 07/23/24 Fall risk assessment: No Falls in past year Last assessed Fall Risk: 12/17/24 Dental Screening Dental Screen Date: 07/23/24 HPI Annual PE HPI Details Pt presents for PE. PFSH Medical History Macular hole of right eye IBS (irritable bowel syndrome) COPD (chronic obstructive pulmonary disease) Spinal stenosis Degenerative joint disease (DJD) of lumbar spine Overweight Type 2 diabetes mellitus Hyperlipidemia HTN (hypertension) Surgical History H/O colonoscopy Hx of cholecystectomy Family History Mother No problems noted. Father Diabetes Heart problem Substance use disorder Sister No problems noted. Social History Housing: House Alcohol intake: never Patient Tobacco Use Status: Former Tobacco user (5years ago) e-Cigarette/Vaping Use: Never Used service: No Current occupational status: retired Cognitive needs: No Hearing needs: No Vision needs: No Questionnaire PHQ-9 Over the last 2 weeks, how often have you been bothered by any of the following problems? 1. Little interest or pleasure in doing things: not at all 2. Feeling down, depressed, or hopeless: not at all 3. Trouble falling or staying asleep, or sleeping too much: not at all 4. Feeling tired or having little energy: not at all 5. Poor appetite or overeating: not at all 6. Feeling bad about yourself - or that you are a failure or have let yourself or your family down: not at all 7. Trouble concentrating on things, such as reading the newspaper or watching television: not at all 8. Moving or speaking so slowly that other people could have noticed. Or the opposite - being so fidgety or restless that you have been moving around a lot more than usual: not at all 9. Thoughts that you would be better off or of hurting yourself in some way: not at all Total score: 0 Depression Screening Interpretation: Negative Depression Screening Done: Yes 41213 - PHQ-9 Billing: Yes Source: Developed by Drs. Jean Delaney, Ammy Yoo, Michael Faustin and colleagues, with an educational xochilt from [employer]. Thrive Questionnaire Date Thrive assessed: 07/23/24 I am a: Patient What is your living situation today?: I have a steady place to live Within the past 12 months, did the food you bought not last and you didn't have the money to get more?: Never true Within the past 12 months, did you worry whether your food would run out before you got money to buy more?: Never true Do you have trouble paying for medicines?: No Do you have trouble getting transportation to medical appointments?: No Do you have trouble paying your heating and electricity bill?: No Do you have trouble taking care of your child, family member or friend?: No Do you have trouble with day-to-day activities such as bathing, preparing meals, shopping, managing finances, etc.?: No Are you currently unemployed and looking for a job?: No Are you interested in more education?: No Please select the resources that you would like help with: None Currently or been in a relationship where the following occur: No concerns reported THRIVE Score: 0 LISS-7 AMB Questionnaire LISS-7 Date LISS - 7 assessed: 07/23/24 Source: Developed by Drs. Jean Delaney, Ammy Yoo, Michael Faustin and colleagues, with an educational xochilt from [employer]. Review of Systems Const All systems reviewed & are unremarkable except as noted in HPI and below Eyes Reports no additional complaints ENT Reports no additional complaints Card Reports no additional complaints Resp Reports no additional complaints GI Reports no additional complaints Reports no additional complaints Physical exam (Primary Care) Vital Signs: Last Vital Signs Pulse 71 12/17/24 12:34 BP 132/66 12/17/24 12:34 Pulse Ox 97 12/17/24 12:34 BMI result Body Mass Index 37.5 Tobacco/Smoking Status: Tobacco use Status Tobacco use date assessed 07/23/24 12/17/24 12:35 Patient Tobacco Use Status Former Tobacco user (5years 12/17/24 12:35 ago) e-Cigarette/Vaping Use Never Used 12/17/24 12:35 PHQ-9: PHQ-9 Score PHQ-9: Total score 0 12/17/24 13:08 Depression Screening Interpretation: Negative Thrive Assessment: Date of Thrive Assessment Date Thrive assessed 07/23/24 12/17/24 12:35 Currently or been in a relationship where the following occur: No concerns reported Const General: no acute distress HENMT Head: Yes normal to inspection Ears: hearing grossly normal bilaterally General nose exam: Normal external nose present Face and sinus: Yes normal facial exam Mouth: Normal oral and palatal mucosa present Throat: Yes posterior oropharynx normal Eyes General: appearance normal, both eyes and all related structures Neck Neck: Yes no lymphadenopathy and Yes supple Resp Effort & Inspection: normal respiratory effort Auscultation: clear to auscultation bilaterally Cardio Rhythm: regular rhythm Heart sounds: S1 normal heart sound present and S2 normal heart sound present GI Inspection: Yes normal to inspection Palpation (GI): Soft to palpation Percussion: Yes normal to percussion Auscultation: normal bowel sounds Extrem Other: Diabetic foot exam skin is intact monofilament and vibration intact bilaterally Coding Level of Care Code Est Pt Prev Care >65y(47933) Diagnoses HTN (hypertension) I10 Hyperlipidemia E78.5 Type 2 diabetes mellitus E11.9 Annual physical exam Z00.00 Additional Codes PHQ-9 - 87333 - PHQ-9 Billing: Yes ([id number]) Assessment & Plan Assessment & Plan (1) HTN (hypertension): Code(s): I10 - Essential (primary) hypertension Category: Medical Plan: cont meds (2) Hyperlipidemia: Code(s): E78.5 - Hyperlipidemia, unspecified Category: Medical Plan: cont statin (3) Type 2 diabetes mellitus: Code(s): E11.9 - Type 2 diabetes mellitus without complications Category: Medical Plan: A1C is 5.4, cont ADA diet increase physical activity weight loss discussed with the patient. She was advised to stop glipizide and will continue Ozempic follow-up in 6 months with a fasting labs before (4) Annual physical exam: Code(s): Z00.00 - Encounter for general adult medical examination without abnormal findings Category: Medical Plan: well balanced diet, regular exercise weight loss discussed with the patient. She is up-to-date with diabetic eye exam Orders: Orders Hemoglobin A1c 6 Months E11.9 - Type 2 diabetes mellitus without complications, E78.5 - Hyperlipidemia, unspecified, I10 - Essential (primary) hypertension Comprehensive [place]. Panel Fast 6 Months E11.9 - Type 2 diabetes mellitus without complications, E78.5 - Hyperlipidemia, unspecified, I10 - Essential (primary) hypertension Complete Blood Count Auto Diff 6 Months E11.9 - Type 2 diabetes mellitus without complications, E78.5 - Hyperlipidemia, unspecified, I10 - Essential (primary) hypertension Microalbumin, Random (w Creat) 6 Months E11.9 - Type 2 diabetes mellitus without complications, E78.5 - Hyperlipidemia, unspecified, I10 - Essential (primary) hypertension Lipid Panel 6 Months E11.9 - Type 2 diabetes mellitus without complications, E78.5 - Hyperlipidemia, unspecified, I10 - Essential (primary) hypertension
== END 2024-12-17 13:21 | disposition home or self-care (01) ==
LOC: HO.HMCC 12:30
PROVIDERS: PCP Internal Medicine; Visit Provider Internal Medicine
DX: I10 Essential (primary) hypertension (principal); E78.5 Hyperlipidemia, unspecified; E11.9 Type 2 diabetes mellitus without complications; Z00.00 Encounter for general adult medical examination without abnormal findings

== ENCOUNTER → 2024-12-17 12:29 | Outpatient (BNVA) | payer OTHER, SELFPAY | PROVIDERS: PCP Internal Medicine; Visit Provider Internal Medicine | DX: Z00.00 Encounter for general adult medical examination without abnormal findings (principal); I10 Essential (primary) hypertension; E78.5 Hyperlipidemia, unspecified; E11.9 Type 2 diabetes mellitus without complications | CPT/HCPCS: 96127 ==